=== PATIENT | female | born 1940 | race Caucasian/White ===

== ENCOUNTER → 2016-08-02 | Outpatient (CLI) | payer OTHER, MEDICARE ==
[~2016-08-02] MED LIST: CHOL1000 PO; CLX20 PO; LISI20TA PO; PRED1SUS3 OPL
[2016-08-02 12:15] LABS: FERRITIN 122.3 ng/ml (8.0-388.0)
[2016-08-05 22:19] LABS: ALBUMIN 4.1 G/DL (3.8-4.8); GAMMA GLOBULIN 1.1 G/DL (0.8-1.7)
--- NOTE | 2016-08-08 10:08 | CODING QUERY MEDICAL NECESSITY ---
SUPPORTING DIAGNOSIS NEEDED A supporting diagnosis is required for the test/procedure performed on this patient in order for us to be reimbursed by the patient's insurance. Please provide a supporting diagnosis for the following test/procedure listed below next to the test name along with your signature. *If there is no additional diagnosis for this patient that would support the following test/procedure please document that below next to the test/procedure. Test(s)/Procedure(s) that require a supporting diagnosis: DOS 08/02 * Vitamin B12 DIAGNOSIS: * Iron DIAGNOSIS: Provider Signature: Date: Thank you Sophie Cheek Health Information Management Once completed, please kindly fax back to [phone] For questions please call [phone]
== END | disposition home or self-care (01) ==
LOC: C.LABBFT 09:51
PROVIDERS: ATTEND Psychiatry & Neurology Neurology
DX: M54.5 Low back pain (principal); G62.9 Polyneuropathy, unspecified; G25.81 Restless legs syndrome; R20.0 Anesthesia of skin

== ENCOUNTER → 2016-09-04 | Outpatient (CLI) | payer OTHER, MEDICARE ==
[2016-09-04 13:09] LABS: BLOOD UREA NITROGEN 17 mg/dl (7-18); CREATININE 0.81 mg/dl (0.60-1.20)
== END | disposition home or self-care (01) ==
LOC: C.LABBFT 11:07
PROVIDERS: ATTEND Psychiatry & Neurology Neurology
DX: F05 Delirium due to known physiological condition (principal); R41.3 Other amnesia; E11.9 Type 2 diabetes mellitus without complications

== ENCOUNTER → 2016-09-06 | Outpatient (CLI) | payer OTHER, MEDICARE ==
[~2016-09-06] MED LIST changes: +GADAVIST IV PRN
--- NOTE | 2016-09-06 19:56 | DIAGNOSTIC IMAGING REPORT ---
MRI OF THE LUMBAR SPINE WITH AND WITHOUT CONTRAST CLINICAL HISTORY: Lumbar radiculopathy. COMPARISON STUDY: No previous studies for comparison. TECHNIQUE: Utilizing a 1.5 Mary magnet and dedicated coil, multiplanar, multiecho imaging of the lumbar spine was performed before and after uneventful IV administration of 7 mL of Gadavist. FINDINGS: For purposes of numbering on this exam, the L5-S1 disc space is assigned to axial image 23 of 25. There is slight anterolisthesis L3 on L4. There is no suspicious marrow replacement. There is no intracanalicular mass or fluid collection. Multiple T2 hyperintense bilateral renal lesions are noted. These are suboptimally assessed on this exam but visualized lesions favor cysts. L1-2: Central canal and neural foramen are patent. L2-3: There is disc bulge, ligamentous hypertrophy and facet arthrosis that result in severe narrowing of the central canal and lateral recesses with mild narrowing of both neural foramen. L3-4: There is disc bulge with central disc protrusion, ligamentous hypertrophy and facet arthrosis which result in marked narrowing of the central canal and lateral recesses with mild narrowing of both neural foramen. L4-5: There is disc bulge with ligamentous hypertrophy and facet arthrosis that result in moderate to severe narrowing of the central canal and lateral recesses and mild narrowing of both neural foramen. L5-S1: The central canal is patent. There is mild narrowing of the left neural foramen. IMPRESSION: 1. 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 Multilevel neural foraminal stenosis, as described above. 2. No lumbar spine fracture. Electronically signed by: Chito Do M.D. 09/06/2016 7:54 PM Dictated Date/Time: 09/06/2016 7:45 PM
--- NOTE | 2016-09-06 20:25 | DIAGNOSTIC IMAGING REPORT ---
MRI OF THE BRAIN WITHOUT AND WITH IV CONTRAST SEIZURE PROTOCOL CLINICAL HISTORY: Acute confusional state. COMPARISON STUDY: No previous studies for comparison. TECHNIQUE: Utilizing a 1.5 Mary magnet and dedicated coil, multiplanar, multiecho imaging of the brain was performed pre and postcontrast administration. IV administration of 7 mL of Gadavist contrast was uneventful. Thin cut coronal T2 imaging was performed according to seizure protocol. FINDINGS: There are no areas of restricted diffusion. No acute intracranial hemorrhage, midline shift or mass effect is present. Ventricular system is normal. Basilar cisterns are patent. There are no extra axial collections. Flow-voids for the major intracranial vessels are present. There are no intracranial masses or areas of pathologic enhancement. There is mucosal thickening with secretions within the bilateral maxillary sinuses as well as the left sphenoid and ethmoid sinuses. There is suspected resection of the right parotid gland. Scattered white matter T2 hyperintense foci suggest small vessel disease. IMPRESSION: 1. No acute intracranial findings. 2. No intracranial masses or pathologic enhancement. 3. Moderate small vessel disease. 4. Mild paranasal sinus disease. Electronically signed by: Chito Do M.D. 09/06/2016 8:23 PM Dictated Date/Time: 09/06/2016 7:26 PM
== END | disposition home or self-care (01) ==
LOC: C.MRI 16:19
PROVIDERS: ATTEND Psychiatry & Neurology Neurology
DX: M54.16 Radiculopathy, lumbar region (principal); F05 Delirium due to known physiological condition; M48.06 Spinal stenosis, lumbar region

== ENCOUNTER → 2016-09-16 | Outpatient (CLI) | payer OTHER, MEDICARE ==
[~2016-09-16] MED LIST changes: -GADAVIST IV PRN
--- NOTE | 2016-09-18 10:36 | EEG Procedure Note ---
EEG Procedure Note Date of Service September 16, 2016. Start / End Times Start Time: 1:31pm End Time: 2:31pm Referring Physician Claudine Max History 76 year old female with change in short term memory. EEG to evaluate for possible seizure etiology. Home meds: Gabapentin. Home Medication List Scheduled Cholecalciferol (Vitamin D3), 1 TAB PO QAM Citalopram (Celexa *), 20 MG PO QAM Lisinopril/Hctz (Prinzide 20-12.5MG), 1 TAB PO QPM Prednisolone Acetate 1% Oph (Pred Forte 1% Oph), 1 DROP OPL DIRECTED Description This is a 21 electrode EEG with a single channel dedicated to limited EKG. The electrodes were placed in accordance with the International 10-20 system. Frequent diffuse electrode artifact noted. EEG of fair technical quality. At the start of the recording the patient was in an awake state. The background was well organized and composed of symmetric mixed alpha and beta frequencies. There was a well formed symmetric moderate amplitude posterior dominant rhythm of 9-10Hz that was reactive to eye opening and closure. Hyperventilation was not done. Photic stimulation at various frequencies produced no abnormalities. Sleep was indicated by vertex waves and symmetric sleep spindles. Interpretation This is a normal awake and asleep 1hr extended EEG There was no electrographic seizures or epileptiform discharges. Clinical Correlation A normal EEG does not rule out epilepsy if there is a strong clinical suspicion.
== END | disposition home or self-care (01) ==
LOC: C.NEUR 13:07
PROVIDERS: ATTEND Psychiatry & Neurology Neurology
DX: R41.3 Other amnesia (principal)

== ENCOUNTER → 2016-10-16 | Outpatient (CLI) | payer OTHER, MEDICARE ==
--- NOTE | 2016-10-16 17:14 | MAMMOGRAPHY REPORT ---
BILATERAL DIGITAL SCREENING MAMMOGRAM WITH CAD: 10/16/2016 CLINICAL HISTORY: Routine screening. Patient has no complaints. TECHNIQUE: Bilateral CC and MLO views were obtained. Current study was also evaluated with a Compute r Aided Detection (CAD) system. COMPARISON: Comparison is made to exams dated: 10/16/2015 mammogram, 10/12/2014 mammogram, 10/01/2013 gloria mogram, 10/06/2012 ultrasound, 10/06/2012 mammogram, and 09/30/2012 mammogram - [facility] nter. BREAST COMPOSITION: There are scattered areas of fibroglandular density in both breasts. FINDINGS: There is a stable anton-shaped metallic biopsy marker in the upper outer posterior left stephie st and associated asymmetry which has been present after the biopsy. However, there is a possible ne w cluster of microcalcifications in the upper outer middle one third of the left breast, for which ad ditional spot magnification views are recommended. There are other scattered benign-appearing round and coarse calcifications and mild vascular calcific ations in the breasts. No other suspicious mass, architectural distortion or cluster of suspicious m icrocalcifications is seen. IMPRESSION: ACR BI-RADS CATEGORY 0: INCOMPLETE EVALUATION: NEED ADDITIONAL IMAGING EVALUATION The possible new cluster of microcalcifications in the upper outer left breast needs additional evalu ation. The patient will be called to schedule an appointment. Approximately 10% of breast cancers are not detected with mammography. A negative mammographic report should not delay biopsy if a clinically suggestive mass is present. Sammie Lockwood M.D. ay/:10/16/2016 14:24:34 Painter Assistant: Carlee HENRIQUEZ(R)(M), [facility] letter sent: Addl Imaging 0 BI-RADS Code: ACR BI-RADS Category 0: Incomplete Evaluation: Need Additional Imaging Evaluation
== END | disposition home or self-care (01) ==
LOC: C.MAMM 13:25
PROVIDERS: ATTEND Family Medicine
DX: Z12.31 Encounter for screening mammogram for malignant neoplasm of breast (principal); R92.8 Other abnormal and inconclusive findings on diagnostic imaging of breast

== ENCOUNTER → 2016-10-23 | Outpatient (CLI) | payer OTHER, MEDICARE ==
--- NOTE | 2016-10-23 16:40 | MAMMOGRAPHY REPORT ---
UNILATERAL LEFT DIGITAL DIAGNOSTIC MAMMOGRAM: 10/23/2016 CLINICAL HISTORY: 76-year-old woman with a prior history of left breast stereotactic biopsy and duct exploration. She was called back from recent screening mammography for a new cluster of microcalcifi cations in the upper outer quadrant of the left breast. TECHNIQUE: Spot magnification left CC and ML views were obtained. COMPARISON: Comparison is made to exams dated: 10/16/2016 mammogram, 10/16/2015 mammogram, 10/12/2014 mamm ogram, 10/01/2013 mammogram, 10/06/2012 mammogram, and 09/30/2012 mammogram - [facility] er. BREAST COMPOSITION: There are scattered areas of fibroglandular density in the left breast. FINDINGS: There is a 9.9 mm cluster of amorphous microcalcifications in a linear distribution in the upper outer middle one third of the left breast. This cluster is indeterminate given the morphology and distribution. When comparing to the spot magnification views performed prior to stereotactic bio psy in the left upper outer quadrant in 2010, the biopsied calcifications at that time or more coarse and heterogeneous in morphology which differs from the current cluster. Although this cluster could possibly represent a fibroadenoma, DCIS cannot be excluded. Definitive characterization with stereo tactic biopsy is recommended. No obvious associated asymmetry, mass or architectural distortion. IMPRESSION: ACR BI-RADS CATEGORY 4B: INTERMEDIATE SUSPICION FOR MALIGNANCY 1. Left breast stereotactic guided biopsy is recommended for a 9.9 mm cluster of amorphous microcalc ifications in a linear distribution in the left upper outer quadrant. These results and recommendations were discussed with the patient at the time of the exam. She tentat ively scheduled the biopsy prior to leaving our department. Approximately 10% of breast cancers are not detected with mammography. A negative mammographic report should not delay biopsy if a clinically suggestive mass is present. Sammie Lockwood M.D. ay/:10/23/2016 14:06:31 Senior Biostatistician: Theodora SANCHEZ)(Reny), [facility] letter sent: Abnormal 4/5 BI-RADS Code: ACR BI-RADS Category 4B: Intermediate Suspicion For Malignancy
== END | disposition home or self-care (01) ==
LOC: C.MAMM 13:35
PROVIDERS: ATTEND Family Medicine
DX: R92.0 Mammographic microcalcification found on diagnostic imaging of breast (principal)

== ENCOUNTER → 2016-11-06 | Outpatient (CLI) | payer OTHER, MEDICARE ==
--- NOTE | 2016-11-06 13:15 | Discharge Instructions ---
Discharge Instructions Procedure Procedure Date: Nov 06, 2016. Reason for visit: Left Calcs. Discharge Discharge Date: Nov 06, 2016. Discharge Diagnosis: status post breast biopsy Instructions Activity Recommendations: Additional Limitations (see below) Return to School/Work: no limitations Recommended Home Diet: No Limitations Provider Instructions: ACTIVITY RECOMMENDATIONS: * No lifting, pushing, pulling or exercising the affected side for three days. RETURN TO SCHOOL/WORK: * You may return to work/school after the procedure, but do not perform any strenuous activities for 24 to 48 hours. MEDICATIONS: * Tylenol (two 325 mg) every four to six hours if needed for mild pain (if not allergic to Tylenol). DIET: * Resume previous diet. SPECIAL CARE INSTRUCTIONS: * Keep biopsy site dry for 24 hours. May shower after 24 hours, but do not soak (bathe) incision. * May remove Tegaderm (plastic patch) tomorrow AFTER showering. * Leave the steri-strips on for one week. Allow the steri-strips to fall off by themselves. If not off after one week, you may remove them. You may place a Bandaid crosswise over the strips, if desired. * Apply ice 10 minutes on and 10 minutes off as needed. * Wear a bra at bedtime to sleep more comfortably for 2-3 days. * Your referring physician should have the results after approximately 5 to 7 business days. * Call for unusual bleeding, fever, drainage, etc or if you have any questions call during normal business hours or after hours call Dr Grimm, [phone]. FOLLOW UP VISIT: Follow-up with Referring Physician as scheduled. Allergies Coded Allergies: Diphenhydramine (Unverified Allergy, Severe, jerking leg movements, ) Codeine (Unverified Allergy, Intermediate, hives, 05/29/15) Shellfish (Verified Allergy, Intermediate, ITCHING, 05/29/15) Iodinated Contrast Media (Verified Allergy, Unknown, INTOLERANT OF IV DYE , 05/29/15) Latex1 -Allergic Contact Dermititis (Verified Adverse Reaction, Unknown, LATEX INTOLERANCE, 05/29/15) Uncoded Allergies: ADHESIVE TAPE (Allergy, Intermediate, MAKES SKIN RED, 04/21/12) BERRIES (Allergy, Intermediate, ITCHING, 07/01/14) [place] Recommendations: Call your doctor if: * Temperature above 101 degrees * Pain not relieved by pain medicine ordered * There is increased drainage or redness from any incision * You have any unanswered questions or concerns. Your Doctors Instructions noted above were prepared by provider Marcelina Grimm. Patient Signature Section: Patient Instructions Signature Page Carmen Manning Patient (or Guardian) Signature/Date: I have read and understand the instructions given to me by my caregivers. Caregiver/RN/Doctor Signature/Date: The above-named patient and/or guardian has received patient instructions on this date. + Original Patient Signature Page (only) stays with chart. Please make copy for patient.
--- NOTE | 2016-11-06 16:09 | MAMMOGRAPHY REPORT ---
STEREOTACTIC GUIDED BIOPSY LEFT BREAST: 11/06/2016 CLINICAL HISTORY: Indeterminate calcifications in the left upper outer quadrant. PATIENT CONSENT: The procedure, risks, benefits, and alternatives of stereotactic biopsy with clip pl acement were discussed with the patient, and verbal and written consent was obtained. A timeout was performed immediately prior to the procedure. PROCEDURE DESCRIPTION: With stereotactic guidance, aseptic technique, and lidocaine as a local anesth etic (1% lidocaine to anesthetize the skin and 1% lidocaine with epinephrine to anesthetize the deepe r tissues), the calcifications of concern in the left upper outer quadrant were sampled multiple time s with a 9-gauge vacuum-assisted biopsy needle ([employer]). The path of approach was lateral. The specimen radiograph demonstrates calcifications to be present in the samples. A metallic marker cli p (dumbbell-shaped) was placed at the biopsy site. This was confirmed on postprocedure mammograms. Direct pressure was applied at the biopsy site and hemostasis was readily achieved. The patient tole rated the procedure without complication. She was given wound care instructions. COMPARISON: Comparison is made to exams dated: 10/23/2016 mammogram, 10/16/2016 mammogram, 10/16/2015 gloria mogram, 10/12/2014 mammogram, 10/01/2013 mammogram, and 10/06/2012 mammogram - [facility]. IMPRESSION: STEREOTACTIC GUIDED BIOPSY Stereotactic biopsy of indeterminate calcifications in the left upper outer quadrant, with clip place ment. The patient will receive pathology results from her referring provider. Marcelina Grimm M.D. ah/:11/06/2016 13:17:36 Tile Fitter: Carlee Hurtado, [facility]
--- NOTE | 2016-11-06 16:09 | MAMMOGRAPHY REPORT ---
UNILATERAL LEFT DIGITAL DIAGNOSTIC MAMMOGRAM: 11/06/2016 CLINICAL HISTORY: Status post stereotactic biopsy of left upper outer quadrant calcifications. TECHNIQUE: Left CC and LM views were obtained. COMPARISON: Comparison is made to exams dated: 10/23/2016 mammogram, 10/16/2016 mammogram, 10/16/2015 gloria mogram, 10/12/2014 mammogram, 10/01/2013 mammogram, and 10/06/2012 ultrasound - [facility] ter. BREAST COMPOSITION: There are scattered areas of fibroglandular density in the left breast. FINDINGS: Preprocedural left LM view was obtained for biopsy planning purposes. Postprocedural left CC and LM views were obtained, which shows a new dumbbell-shaped biopsy marker clip within the left u pper outer quadrant status post stereotactic biopsy of left upper outer quadrant calcifications. The re is mild lateral migration of the biopsy marker clip of approximately 2 cm, likely due to accordion effect. No significant postbiopsy hematoma is seen. IMPRESSION: POST PROCEDURE IMAGING FOR MARKER PLACEMENT New biopsy marker clip status post left breast stereotactic biopsy. Pathology results are pending. Approximately 10% of breast cancers are not detected with mammography. A negative mammographic report should not delay biopsy if a clinically suggestive mass is present. Marcelina Grimm M.D. /:11/06/2016 13:35:01 Field Hockey [employer] Lacrosse Coach: Carlee Hurtado [facility] BI-RADS Code: Post Procedure Imaging For Marker Placement
== END | disposition home or self-care (01) ==
LOC: C.MAMM 12:25
PROVIDERS: ATTEND Family Medicine
DX: R92.0 Mammographic microcalcification found on diagnostic imaging of breast (principal); D24.2 Benign neoplasm of left breast

== ENCOUNTER → 2017-03-07 | Outpatient (CLI) | payer OTHER, MEDICARE ==
[2017-03-07 12:37] LABS: URINE APPEARANCE CLEAR (CLEAR); URINE BILIRUBIN NEG (NEG); URINE COLOR YELLOW; URINE EPITHELIAL CELL AUTO 0-5 /lpf (0-5); URINE NITRITE NEG (NEG); URINE SPECIFIC GRAVITY 1.011 (1.000-1.030); UROBILINOGEN NEG (NEG); ZZUR CULT IF INDIC CLEAN CATCH NO
[2017-03-07 12:43] LABS: MANUAL MICROSCOPIC REQUIRED? NO; REVIEW REQ? NO
== END | disposition home or self-care (01) ==
LOC: C.LABBFT 10:06
PROVIDERS: ATTEND Family Medicine
DX: M54.9 Dorsalgia, unspecified (principal)

== ENCOUNTER → 2017-07-07 | Outpatient (CLI) | payer OTHER, MEDICARE | END | disposition home or self-care (01) | LOC: C.PAPS 08:33 | PROVIDERS: ATTEND Internal Medicine | DX: Z01.419 Encounter for gynecological examination (general) (routine) without abnormal findings (principal) ==

== ENCOUNTER → 2017-07-11 | Outpatient (CLI) | payer OTHER, MEDICARE ==
[2017-07-11 12:43] LABS: BASO % 0.6 %; BASO ABS # 0.03 K/uL (0-0.2); EOS % 3.6 %; EOS ABS # 0.19 K/uL (0-0.5); IG# 0.01 K/uL (0.00-0.02); LYMPH % 39.5 %; MEAN CELL VOLUME 92.3 fL (80-100); MEAN CORPUSCULAR HEMOGLOBIN 30.8 pg (25-34); MEAN CORPUSCULAR HGB CONC 33.3 g/dl (32-36); MEAN PLATELET VOLUME 10.6 fL (7.4-10.4); MONO % 11.1 %; MONO ABS # 0.59 K/uL (0.11-0.59); NEUT ABS # 2.39 K/uL (1.4-6.5); PLATELET COUNT 207 K/uL (130-400); RED CELL DISTRIBUTION WIDTH CV 13.5 % (11.5-14.5); RED CELL DISTRIBUTION WIDTH SD 45.5 fL (36.4-46.3); WHITE BLOOD COUNT 5.31 K/uL (4.8-10.8)
[2017-07-11 13:01] LABS: ALT/SGPT 28 U/L (12-78); BLOOD UREA NITROGEN 18 mg/dl (7-18); CALCIUM 9.5 mg/dl (8.5-10.1); CARBON DIOXIDE 32 mmol/L (21-32); CHOLESTEROL 259 mg/dl (0-200); GLUCOSE 116 mg/dl (70-99); SODIUM 139 mmol/L (136-145)
[2017-07-11 13:10] LABS: ALKALINE PHOSPHATASE 72 U/L (45-117); AST/SGOT 20 U/L (15-37); LDL CHOLESTEROL (DIRECT) 171 mg/dl; TOTAL PROTEIN 7.6 gm/dl (6.4-8.2)
== END | disposition home or self-care (01) ==
LOC: C.LABSPEC 12:06
PROVIDERS: ATTEND Internal Medicine
DX: I10 Essential (primary) hypertension (principal); E78.5 Hyperlipidemia, unspecified; R53.83 Other fatigue; C81.90 Hodgkin lymphoma, unspecified, unspecified site

== ENCOUNTER → 2017-07-22 | Outpatient (CLI) | payer OTHER, MEDICARE ==
[2017-08-07 12:45] LABS: FECAL OCCULT BLOOD #1 NEGATIVE (NEGATIVE); FECAL OCCULT BLOOD #2 NEGATIVE (NEGATIVE); FECAL OCCULT BLOOD #3 NEGATIVE (NEGATIVE)
== END | disposition home or self-care (01) ==
LOC: C.LABSPEC 12:33
PROVIDERS: ATTEND Internal Medicine
DX: Z12.11 Encounter for screening for malignant neoplasm of colon (principal)

== ENCOUNTER → 2017-08-07 | Outpatient (CLI) | payer OTHER, MEDICARE ==
[~2017-08-07] MED LIST changes: +OPTIRAY 320 IV PRN
--- NOTE | 2017-08-07 14:33 | DIAGNOSTIC IMAGING REPORT ---
CT SCAN OF THE ABDOMEN AND PELVIS WITH IV CONTRAST CLINICAL HISTORY: Right lower quadrant abdominal pain. Reported history of lymphoma. COMPARISON STUDY: Abdominal CT dated 02/10/2013. TECHNIQUE: Following the IV administration of 93 cc of Optiray 320, CT scan of the abdomen and pelvis is performed from the lung bases to the proximal femora. Images are reviewed in the axial, sagittal, and coronal planes. The patient was premedicated for a reported history of contrast allergy. IV contrast was administered without complication. A dose lowering technique was utilized adhering to the principles of ALARA. CT DOSE: 805.57 mGycm FINDINGS: Lung bases: The heart is normal in size noting trace pericardial fluid. The coronary arteries are densely calcified. An 8 mm pleural-based nodular density at the right lung base is seen on image #63. This is unchanged from 2013 and of doubtful significance. A calcified granuloma is seen in the lingula. No airspace consolidation or pleural effusion is identified. Dependent atelectasis is noted. A surgical clip is noted in the left breast. There is a tiny hiatal hernia. Liver: The contrast-enhanced liver is normal in size, contour, and attenuation. There is no intrahepatic biliary ductal dilatation. The hepatic veins and portal veins are patent. Gallbladder: Unremarkable. Spleen: Normal in size and attenuation, measuring 10.6 cm in length. Pancreas: Unremarkable. Adrenal glands: Unremarkable. Kidneys: The contrast enhanced kidneys demonstrate mild cortical atrophy. There is fullness of the renal collecting system bilaterally. The kidneys enhance symmetrically. Bilateral renal cysts measure up to 2.7 cm. Additional subcentimeter cortical hypodensities also likely represent cysts but are too small for definitive characterization. Abdominal vasculature: The abdominal aorta is normal in course and caliber noting moderate atherosclerotic calcification. Bowel: There is mild to moderate colonic fecal retention. No bowel obstruction is seen. The appendix is well-visualized and normal. Peritoneum: There is no intraperitoneal free air or abdominal ascites. Lymphadenopathy: None. Pelvic viscera: The bladder, uterus, and adnexa are normal as visualized. Skeletal structures: The skeletal structures are osteopenic. Mild lumbosacral spondylosis is observed. No lytic or blastic lesions are seen. IMPRESSION: 1. No acute infectious or inflammatory findings are identified in the abdomen or pelvis. 2. There is no abdominopelvic lymphadenopathy. The spleen is normal in size. 3. There is fullness of the renal collecting system bilaterally. The ureters are normal in caliber and this is of indeterminant significance. Consider correlation with urinalysis. 4. Mild to moderate colonic fecal retention. No bowel obstruction is identified. 5. Additional findings as above. Electronically signed by: Wesley Saravia M.D. 08/07/2017 2:31 PM Dictated Date/Time: 08/07/2017 2:22 PM
== END | disposition home or self-care (01) ==
LOC: C.CTS 13:57
PROVIDERS: ATTEND Internal Medicine
DX: R10.31 Right lower quadrant pain (principal); M85.88 Other specified disorders of bone density and structure, other site

== ENCOUNTER 2017-09-12 14:02 | Emergency (ER) | payer OTHER, MEDICARE ==
[~2017-09-12] VITALS: Ht 167.6 cm; Wt 79.4 kg
[~2017-09-12 14:02] MED LIST changes: -OPTIRAY 320 IV PRN
[2017-09-12 14:05] VITALS: BP 157/68; PULSE 88; TEMP 36.8; O2SAT 97; Ht 167.6 cm; Wt 79.4 kg
[2017-09-12] MEDS ORDERED: CITA-295 PO (14:45)
[2017-09-12] MEDS ORDERED: PRAV20TA PO (14:45)
[2017-09-12] MEDS ORDERED: LISI-787 PO (14:45)
[2017-09-12] MEDS ORDERED: PRLSR20 PO (14:45)
--- NOTE | 2017-09-12 14:47 | DIAGNOSTIC IMAGING REPORT ---
RIGHT KNEE 3 VIEWS CLINICAL HISTORY: Fall with right knee pain. FINDINGS: AP, crosstable lateral, and sunrise views of the right knee are obtained. No prior studies are available for comparison at the time of dictation. The skeletal structures are osteopenic. No fracture is seen. There is mild tricompartmental degenerative joint space narrowing, greatest at the patellofemoral articulation. There is a superior patellar enthesophyte and mild degenerative beaking of the tibial spine. There is a small joint effusion. Mild soft tissue swelling is noted. Superficial venous varicosities are present in the right lower extremity. IMPRESSION: 1. Soft tissue swelling and small joint effusion. There is no radiographic evidence of right knee fracture. 2. Osteopenia and mild degenerative change as above. Electronically signed by: Wesley Saravia M.D. 09/12/2017 2:45 PM Dictated Date/Time: 09/12/2017 2:44 PM
--- NOTE | 2017-09-12 14:58 | DIAGNOSTIC IMAGING REPORT ---
R FOOT MIN 3 VIEWS ROUTINE CLINICAL HISTORY: R foot/knee pain s/p fall trauma COMPARISON: None. DISCUSSION: Small cortical fracture base proximal phalanx fifth toe. Localized soft tissue edema. Remaining osseous structures show no acute bony abnormality. There is no evidence for soft tissue swelling. IMPRESSION: Cortical fracture base proximal phalanx fifth toe. The above report was generated using voice recognition software. It may contain grammatical, syntax or spelling errors. Electronically signed by: Epi Graham M.D. 09/12/2017 2:56 PM Dictated Date/Time: 09/12/2017 2:42 PM
--- NOTE | 2017-09-12 15:37 | EMERGENCY ROOM VISIT NOTE ---
History First contact with patient: 14:10 Chief Complaint: LEG PAIN,LEG INJURY Stated Complaint: FELL, RIGHT KNEE AND FOOT PAIN History of Present Illness The patient is a 77 year old female who presents to the Emergency Room with complaints of injuries to her right lower extremity after she fell walking up her driveway yesterday. The patient reports that she has a history of pinched disc in her back, and bilateral lower extremity paresthesias/numbness. She reports that these symptoms come on very quickly. She has had an extensive workup by her PCP, back surgeon, media sales consultant and neurologist. The patient reports that she was walking up her driveway when she stopped and her feet went numb. She then reports losing her balance and falling onto her right side. The patient reports that she went to her chiropractor who suggested that she come to the emergency department for an x-ray of her right knee and right foot. The patient denies any significant knee discomfort. She denies any back pain , head injury, neck pain or other extremity injuries from her fall, and currently rates her discomfort a 6 out of 10 on my exam. Review of Systems 10 system review was performed and was negative except for pertinent positives and negatives as indicated in history of present illness Past Medical/Surgical History Medical Problems: (1) Benign hypertension (2) Diabetes mellitus (3) Tonsillectomy Family History FH: cancer FH: diabetes mellitus FH: gallbladder disease FH: heart disease FH: hypertension Social History Smoking Status: Never Smoker Alcohol Use: none Marital Status: Housing Status: lives with significant other Occupation Status: retired Current/Historical Medications Scheduled Citalopram Hydrobromide (Citalopram), 20 MG PO DAILY Lisinopril/Hctz (Zestoretic 20MG/12.5MG), 1 TAB PO DAILY Pravastatin (Pravachol ), 40 MG PO DAILY Scheduled PRN Omeprazole (Prilosec), 40 MG PO DAILY PRN for PRN Physical Exam Vital Signs Date Time Temp Pulse Resp B/P (MAP) Pulse Ox O2 Delivery O2 Flow Rate FiO2 09/12/17 14:05 36.8 88 18 157/68 97 Room Air Physical Exam CONSTITUTIONAL: Healthy and well nourished. Alert and oriented X 3 with positive affect. Patient does not appear in any acute distress. HEENT: Normocephalic, atraumatic. Pupils equal, round and reactive. NECK: Full active range of motion without discomfort. RESPIRATORY: Clear to auscultation bilaterally with no wheezing, crackles, rhonchi or stridor. CARDIOVASCULAR: Regular rate and rhythm with no murmurs, rubs or gallops. GASTROINTESTINAL: Bowel sounds present in all quadrants. Soft and nontender to palpation. MUSCULOSKELETAL: Examination of the right knee does not show any ecchymosis, abrasions or significant joint effusion. She exhibits full range of motion of the knee without discomfort. Ligamentous exam is normal. Examination of the right foot shows lateral ecchymosis and edema. She has tenderness laterally as well as at the base of the fifth toe. Negative anterior drawer. No tenderness to palpation of the calcaneus or Achilles tendon. Pedal pulses are intact. Remaining muscular skeletal exam was normal with no tenderness to palpation through the thoracolumbar spine or ribs. INTEGUMENTARY: No rash or other significant dermatologic conditions noted. NEUROLOGIC: No focal neurologic deficits noted. Medical Decision & Procedures ER Provider Diagnostic Interpretation: My interpretation of the right knee and foot x-rays shows a mildly displaced fracture at the medial base of the proximal phalanx of the fifth toe. Right knee x-rays are normal with may be a small joint effusion. Radiologist reports are as follows: R FOOT MIN 3 VIEWS ROUTINE CLINICAL HISTORY: R foot/knee pain s/p fall trauma COMPARISON: None. DISCUSSION: Small cortical fracture base proximal phalanx fifth toe. Localized soft tissue edema. Remaining osseous structures show no acute bony abnormality. There is no evidence for soft tissue swelling. IMPRESSION: Cortical fracture base proximal phalanx fifth toe. RIGHT KNEE 3 VIEWS CLINICAL HISTORY: Fall with right knee pain. FINDINGS: AP, crosstable lateral, and sunrise views of the right knee are obtained. No prior studies are available for comparison at the time of dictation. The skeletal structures are osteopenic. No fracture is seen. There is mild tricompartmental degenerative joint space narrowing, greatest at the patellofemoral articulation. There is a superior patellar enthesophyte and mild degenerative beaking of the tibial spine. There is a small joint effusion. Mild soft tissue swelling is noted. Superficial venous varicosities are present in the right lower extremity. IMPRESSION: 1. Soft tissue swelling and small joint effusion. There is no radiographic evidence of right knee fracture. 2. Osteopenia and mild degenerative change as above. ED Course Patient history and physical exam were performed. Nurse's notes were reviewed. Vital signs were reviewed and were normal. The patient refused any analgesics on initial exam. X-rays of the right knee and right foot shows a fracture at the base of the fifth phalanx. The patient's toes were pedro luis taped. I asked the patient if she had something at home to help her with ambulation. She reports that her sister has a walker. I did encourage the patient to use a walker over the next several days to avoid risk of falling. She was encouraged to intermittently apply ice to areas of discomfort. Ibuprofen or Tylenol if needed for additional pain relief. I did encourage her to follow-up with her PCP or [facility] for further reevaluation and management. The patient was happy with plan of care, voiced understanding of all discharge instructions, and rated her discomfort a 3 out of 10 at the conclusion of my exam. The patient was also seen and examined by Dr. Westfall, ED attending physician , who agrees with workup and plan of care. Medical Decision Medication Reconcilliation Current Medication List: was personally reviewed by me Blood Pressure Screening Patient's blood pressure: Normal blood pressure Impression Primary Impression: Fracture of fifth toe, right, closed Additional Impressions: Fall from ground level Contusion of right foot Contusion of right knee Departure Information Dispostion Home / Self-Care Referrals Cleveland Lee D.O. Forms HOME CARE DOCUMENTATION FORM, IMPORTANT VISIT INFORMATION Patient Instructions My [facility] Additional Instructions Intermittently apply ice to areas of discomfort. Pedro Luis tape toes together, and wear a hard soled shoe for comfort. Suggest using a walker to minimize your risk of falling until your injuries improve. Ibuprofen or Tylenol as needed for pain. Suggest follow-up with your PCP or [facility] (Dr. Lee) as needed for further management. Problem Qualifiers Primary Impression: Fracture of fifth toe, right, closed Encounter type: initial encounter Qualified Codes: S92.501A - Displaced unspecified fracture of right lesser toe(s), initial encounter for closed fracture Additional Impressions: Contusion of right foot Encounter type: initial encounter Qualified Codes: S90.31XA - Contusion of right foot, initial encounter Contusion of right knee Encounter type: initial encounter Qualified Codes: S80.01XA - Contusion of right knee, initial encounter
== END 2017-09-12 15:55 | disposition home or self-care (01) ==
LOC: C.EDB 14:04 → C.EDD 15:55
DX: S92.501A Displaced unspecified fracture of right lesser toe(s), initial encounter for closed fracture (principal); S80.01XA Contusion of right knee, initial encounter; W19.XXXA Unspecified fall, initial encounter; Y93.01 Activity, walking, marching and hiking; Y92.093 Driveway of other non-institutional residence as the place of occurrence of the external cause; I10 Essential (primary) hypertension; E11.9 Type 2 diabetes mellitus without complications

== ENCOUNTER 2019-11-29 09:55 | Observation (INO) ==
--- NOTE | 2019-11-18 15:13 | PAT Medication Instructions ---
Medication Instructions Date of Service November 18, 2019 Home Medications citalopram 20 mg tablet 20 mg PO DAILY lisinopril 20 mg-hydrochlorothiazide 12.5 mg tablet 1 tab PO DAILY metformin 500 mg tablet 500 mg PO BID multivitamin 1 tab PO DAILY DO NOT take the morning of surgery lisinopril 20 mg-hydrochlorothiazide 12.5 mg tablet 1 tab PO DAILY metformin 500 mg tablet 500 mg PO BID multivitamin 1 tab PO DAILY Take morning of surgery With a small sip of water, OTHERWISE NOTHING TO EAT OR DRINK AFTER MIDNIGHT: citalopram 20 mg tablet 20 mg PO DAILY Take evening before surgery metformin 500 mg tablet 500 mg PO BID Other Notes If you have any questions please call us at [phone] or [phone] or [phone] or [phone]
--- NOTE | 2019-11-22 09:48 | Anesthesiology Consultation ---
Date of Service November 22, 2019 Assessment & Plan (1) Encounter for pre-operative examination: Per PAT assessment on 11/21: Travel screen- Travel to [facility] (grocery shopping, + mask, + hand washing). No known COVID-19 positive contacts. No current COVID-19 related symptoms. Patient scheduled for preop protocol COVID-19 testing on 11/23 ([place]). Awaiting results. - Check [facility] AM DOS Chart Review Chart Review: Acceptable Risk for Surgery (pending COVID testing) and Patient seen in Pre Admission Testing Teaching & Discussion Pre-Anesthesia Teaching/Discussion Notes: Instructed NPO after midnight before surgery,except medications with 15 cc of water. Medication instructions provided according to the PAT guidelines. History Surgery Operation Date: 11/29/19 12:40 Proposed Procedures p Left Breast Lumpectomy with Localization (Annie Air Brake Man) and Left [place] Lymph Node Biopsy - Lenny Brewer MD, FACS Height/Weight Height: 5 ft 6 in Weight: 74.1 kg Allergies Allergy/AdvReac Type Severity Reaction Status Date / Time diphenhydramine Allergy Severe jerking Unverified 11/18/19 11:56 leg movements codeine Allergy Intermediate hives Unverified 11/18/19 11:56 shellfish derived Allergy Intermediate itchiness Verified 11/22/19 10:17 latex Allergy Mild hives, Verified 11/22/19 09:56 itchiness Iodinated Contrast Media Allergy Unknown "intolerant Verified 11/22/19 10:17 " ADHESIVE TAPE Allergy Intermediate skin Uncoded 11/22/19 09:56 redness, painful BERRIES Allergy Intermediate itchiness Uncoded 11/22/19 10:17 Medications Home Medications Medication Instructions Recorded Confirmed Last Taken citalopram 20 mg tablet 20 mg PO DAILY 11/16/19 11/18/19 Unknown lisinopril 20 1 tab PO DAILY 11/16/19 11/18/19 Unknown mg-hydrochlorothiazide 12.5 mg tablet metformin 500 mg tablet 500 mg PO BID 11/16/19 11/18/19 Unknown multivitamin 1 tab PO DAILY 11/16/19 11/18/19 Unknown Past Medical History Medical History CAD (coronary artery disease) mild, non-obstructive per 08/2018 cardiac cath Depression Hyperlipemia per records Left breast lump mild duct removal, mediport removal Left ventricular hypertrophy moderate, asymmetric LVH (focal thickening of basal septum with no evidence of LVOT obstruction) per 07/2018 stress echo, subsequent cardiac cath 08/2018 with mild, non-obstructive CAD, followed by Dr. Damien Robb Non-Hodgkin lymphoma hx chemo/xrt (several years ago) Type 2 diabetes mellitus NIDDM Exercise / Class Metabolic Activity III < 4 Walking/Shop/Light housework Past Family History Family History Mother Breast cancer Colorectal cancer Hypertension Stroke Daughter Breast cancer 2 daughters Father Diabetes Hypertension Past Surgical History Surgical History History of cataract surgery BOTH EYES Hx of colonoscopy 2017 OR 2018 Hx of parotidectomy RIGHT SIDE 2010 S/P tonsillectomy 1957 Tubal ligation status 1977 Past Anesthesia History No Family Hx of Anesthesia Complications and Other (eyes taped shut during parotidectomy (states she got corneal abrasion)) History of PONV No Hx of PONV and No Hx of Motion Sickness Social History Smoking Status: Never smoker Hx Alcohol Use: No Hx Substance Use: No substance use type: does not use Review of Systems Patient denies chest pain, shortness of breath, fever, chills, cough, wheezing, palpitations. Physical Exam Vital Signs VITALS BP 153/73 P 70 TEMP 98.1 SP02 95%RA RESP 18 PHYSICAL Mildly decreased cervical extension 2/2 cervicalgia Full TMJ range of motion. TMD 3 finger breaths Mallampati Score 3 Dentition: upper partial Lungs: clear throughout to auscultation Cardiac: regular rate and rhythm, no murmurs noted Spine: normal Carotid arteries: negative bruit Extremities: no edema Testing Laboratory Results 11/22/19 10:14 11/22/19 10:14 09/24/19 HGBA1C 6.3% Electrocardiogram Date: 11/22/19 Findings: + NSR @ (65) Stress Test Date: 07/21/18 Type: exercise EF 50-55%. Equivocal exercise echo without definite evidence of ischemia but very low workload achieved. 4.6 METS. Poor exercise tolerance. Mild LAD. moderate, asymmetric LVH (focal thickening of basal septum with no evidence of LVOT obstruction) Cardiac Catheterization Date: 08/10/18 1. Minimal nonobstructive coronary artery disease 2. Normal left and right-sided filling pressures. 3. Normal pulmonary artery pressures
[2019-11-22 10:31] LABS: Basophils # (auto) 0.03 K/uL (0-0.2); Basophils % (auto) 0.5 %; Eosinophils # (auto) 0.17 K/uL (0-0.5); Eosinophils % (auto) 2.9 %; Hematocrit (blood only) 42.4 % (37-47); Hemoglobin 13.5 g/dL (12.0-16.0); Immature Granulocytes # (auto) 0.01 K/uL (0.00-0.02); Immature Granulocytes % (auto) 0.2 %; Lymphocytes # (auto) 2.14 K/uL (1.2-3.4); Lymphocytes % (auto) 36.6 %; Mean Corpuscular Hemoglobin 30.1 pg (25-34); Mean Corpuscular Hgb Conc 31.8 g/dL (32-36); Mean Corpuscular Volume 94.4 fL (80-100); Mean Platelet Volume 10.6 fL (7.4-10.4); Monocytes # (auto) 0.46 K/uL (0.11-0.59); Monocytes % (auto) 7.9 %; Neutrophils # (auto) 3.03 K/uL (1.4-6.5); Neutrophils % (auto) 51.9 %; Platelet Count 204 K/uL (130-400); RDW Coefficient of Variation 13.5 % (11.5-14.5); RDW Standard Deviation 46.4 fL (36.4-46.3); Red Blood Count 4.49 M/uL (4.2-5.4); White Blood Count 5.84 K/uL (4.8-10.8)
[2019-11-22 12:21] LABS: BUN Creatinine Ratio 21.3 (10-20); Creatinine Clr Calc Pharmacy 58.9 ml/min; Est GFR (African American) 80.6; Est GFR (Non-African American) 69.6; Potassium 4.4 mmol/L (3.5-5.1)
--- NOTE | 2019-11-22 14:24 | Electrocardiogram Report ---
Test Reason : Blood Pressure : / mmHG Vent. Rate : 065 BPM Atrial Rate : 065 BPM P-R Int : 166 ms QRS Dur : 076 ms QT Int : 390 ms P-R-T Axes : 056 009 033 degrees QTc Int : 405 ms Normal sinus rhythm Normal ECG No previous ECGs available Confirmed by Sandro Dang ([id number]) on 11/22/2019 2:24:22 PM Referred By: Lenny Brewer Confirmed By:Scott Dang
[~2019-11-29 09:55] MED LIST changes: +CEFAZOLIN 2000MG 2,000 MG/15 ML SYR IV SCH; -CHOL1000 PO; -CLX20 PO; -LISI20TA PO; -PRED1SUS3 OPL
[2019-11-29] MEDS ORDERED: LIDOCAINE HCL 2% 2 ML VIAL/AMP(20MG/ML) INFIL ONE (10:31)
[2019-11-29] MEDS ORDERED: DEXAMETHASONE SOD INJ 4 MG/ML VIAL ONE (10:31)
[2019-11-29] MEDS ORDERED: PROPOFOL IV EMULSION 10 MG/ML 20 ML VIAL IV ONE ×3 (10:31→13:54)
[2019-11-29] MEDS ORDERED: ONDANSETRON INJ 2 MG/ML 2 ML VIAL ONE (10:31)
[2019-11-29] MEDS ORDERED: MIDAZOLAM HCL 1 MG/ML 2ML VIAL ONE (10:31)
[2019-11-29] MEDS ORDERED: fentaNYL citrate 100 MCG/2 ML VIAL ONE ×2 (10:31→13:15)
--- NOTE | 2019-11-29 11:00 | Nuclear Medicine Report ---
LYMPHOSCINTIGRAPHY CLINICAL HISTORY: Left breast cancer. PROCEDURE: Using standard sterile technique, 4 intradermal and one deep injection of 0.426 mCi of Lym phoseek was placed in the left periareolar breast. The patient tolerated the procedure well. There we re no immediate complications. The patient was subsequently transported to the surgical suite. No marv ging was obtained at the referring physician's request. IMPRESSION: Injection of 0.426 mCi of Lymphoseek in the left breast. ACT 112: Negative or not required by law. Electronically signed by: Bandar Gay M.D. 11/29/2019 10:59 AM
[2019-11-29] MEDS ORDERED: ePHEDrine sulfate 50 MG/ML AMP IV PRN (11:57)
[2019-11-29] MEDS ORDERED: fentaNYL citrate 100 MCG/2 ML VIAL IV PRN (11:57)
[2019-11-29] MEDS ORDERED: ATROPINE SULFATE 0.1 MG/ML 10ML SYR IV PRN (11:57)
[2019-11-29] MEDS ORDERED: HYDROmorphone INJ 2 MG/ML SYR/VIAL IV PRN (11:57)
[2019-11-29] MEDS ORDERED: ONDANSETRON INJ 2 MG/ML 2 ML VIAL IV PRN ×2 (11:57→15:48)
--- NOTE | 2019-11-29 12:05 | History & Physical Bridge Note ---
Date of Service November 29, 2019 History & Physical Bridge Note I have examined the patient, reviewed the History & Physical and in the interval since the performance of the History & Physical I have noted the following changes of clinical significance: no changes noted
[2019-11-29] MEDS ORDERED: METHYLENE BLUE 0.5% 10 ML VIAL ONE (12:21)
[2019-11-29] MEDS ORDERED: BUPIVACAINE 0.5 % 5 MG/1 ML MPF 30ML VIAL ONE (12:21)
--- NOTE | 2019-11-29 13:58 | Post Operative Brief Note ---
PG Immediate Post Op with CF Date of Surgery November 29, 2019 Pre & Post Diagnosis Operation Date: 11/29/19 11:30 Pre-Op Diagnosis: Left Breast Cancer Post-Op Diagnosis: Left Breast Cancer I identified the patient and participated in the time-out.: Yes Procedure Operation Date: 11/29/19 11:30 Actual Procedures p Left Breast Lumpectomy with Localization using Annie Addiction Medicine Physician and Left [place] Lymph Node Biopsy(Left) - Lenny Brewer MD, FACS Surgeon Lenny Brewer MD, FACS Technology Applications Consultant Mitch Escobedo Estimated Blood Loss 10 Findings Consistent with Post-Op Diagnosis Specimens Specimen Description: Frozen #1 Left sentinel lymph node Permanent A: Left breast tissue - skin inferior, long silk lateral, short silk medial, methylene blue superior/deep
[2019-11-29] MEDS ORDERED: ACETAMINOPHEN 1,000 MG/100 ML VIAL IV ONE (14:01)
--- NOTE | 2019-11-29 14:29 | Operative Report (OR) ---
DATE OF OPERATION: 11/29/2019 NAME OF OPERATION: Left lumpectomy with sentinel lymph node biopsy using the Annie Dancing Master. STAFF SURGEON: Lenny Brewer MD. FLITCH HANGER: Lyubov Escobedo PA-C. ANESTHESIA: General. DESCRIPTION OF PROCEDURE: The patient was brought in the operating room and placed on the operating table in supine position. Her left arm was extended on an arm board. Her left breast and axilla were prepped and draped in usual fashion. My casino assistant manager helped with prepping, draping, removal of the lymph node, breast tissue and closure of the wounds. Initially, the left axilla was approached. She had had injection for sentinel lymph node biopsy. Incision was made in the left axilla using 0.5% plain Marcaine. Dissection was carried down very deep identifying a small node, which did not have significant activity and then a second node, which was the sentinel lymph node sent for frozen section and found to be negative. The initial node was sent for permanent. At this point, lumpectomy was performed. The marker was in the very inferior superficial part of the breast. Elliptical incision was made. I used the Annie Dancing Master to localize the area. Elliptical skin incision was made. Dissection was carried down very deep to the chest wall. The left breast tissue was marked, skin inferior, long silk suture lateral, short medial, methylene blue superior/deep margin near the pectoralis major muscle. This tissue was then placed into the Faxitron and the marker was within the tissue as well as the clip. Additional inferior/deep tissue was taken. The deep portion was down to the muscle. It was marked with long silk suture lateral, short medial, methylene blue new margin and then additional superior/deep down to the muscle tissue was taken and marked in the same way. Deep tissue was reapproximated using 2-0 plain suture, the breast reapproximated using subcuticular 4-0 Monocryl with Dermabond. The left axilla was closed using 4-0 nylon suture. The patient was transferred to recovery room in stable condition. I attest to the content of the Intraoperative Record and any orders documented therein. Any exception s are noted below.
--- NOTE | 2019-11-29 14:47 | Mammography Report ---
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 She is status post wireless localization with Annie Plant Sciences Professor and sp ecimen radiograph is performed. COMPARISON: Comparison is made to exams dated: 11/10/2019 mammogram, 11/10/2019 stereotactic biopsy, 10/11 mammogram, 11/08/2019 ultrasound, 11/01/2019 mammogram, and 10/28/2018 mammogram - [facility]. FINDINGS: The specimen radiograph demonstrates the metallic biopsy marker, savvy hand wood sander reflector and asymmetry within the tissue specimen, compatible with successful preoperative localization and subseq uent surgical excision. IMPRESSION: SPECIMEN Status post successful preoperative localization and subsequent surgical excision of both the metalli c biopsy marker and Annie Plant Sciences Professor reflector. Final surgical pathology is pending. Sammie Lockwood M.D. ay/:11/29/2019 13:39:41 Offset Plate Maker: Carlee Hurtado, [facility]
--- NOTE | 2019-11-29 14:56 | Anesthesiology Progress Note ---
Date of Service November 29, 2019 Anesthesia Post Procedure Vital Signs Vital Signs: Temp Pulse Pulse Resp BP Pulse Ox 11/29/19 14:45 36.3 C L 89 20 163/82 H 100 11/29/19 14:35 88 15 152/76 H 100 11/29/19 14:25 93 H 18 158/77 H 100 11/29/19 14:16 36.1 C L 105 H 16 150/72 H 100 11/29/19 11:16 37 C 69 18 172/70 H 96 Transfer of Care Handoff Completed per policy Notes Mental Status: alert / awake / arousable and participated in evaluation Patient Amnestic to Procedure: Yes Nausea / Vomiting: adequately controlled Pain: adequately controlled Airway Patency, RR, SpO2: stable & adequate BP & HR: stable & adequate Hydration State: stable & adequate Anesthetic Complications: no major complications apparent and Pt Satisfied with anesthetic care
[2019-11-29] MEDS ORDERED: SODIUM CHLORIDE 0.9% 1000ML 1,000 ML IV SCH (15:48)
[2019-11-29] MEDS ORDERED: MoRPHine SULFATE 2 MG/ML CARP IV PRN ×2 (15:48)
[2019-11-29] MEDS ORDERED: ACETAMINOPHEN 325 MG TAB PO PRN (15:48)
[2019-11-29] MEDS ORDERED: HYDROCODONE/ACETAMOPHEN 5/325MG TAB PO PRN ×2 (15:48)
[2019-11-29] MEDS ORDERED: PROMETHAZINE HCL 12.5 MG in SODIUM CHLORIDE 0.9% 50 ML IV PRN (15:48)
[2019-11-29] MEDS ORDERED: PANTOprazole 40 MG TAB PO PRN (16:47)
--- NOTE | 2019-11-29 16:47 | Hospitalist Consultation ---
Date of Consultation November 29, 2019 Assessment & Plan (1) Breast cancer, left: S/p left breast lumpectomy with sentinel lymph node biopsy with Dr. Brewer on 11/29/2019. - Doing well post-operatively with minimal pain. - Post-op care per Dr. Brewer/surgical team (2) CAD (coronary artery disease): Non-obstructive on cath in 08/2018. - Continue statin as per PCP (reports she doesn't take it right now). (3) Hypertension: BP is 155/70 after surgery. - Continue home HTN meds (4) Diabetes: A1c was 6.3% in 09/2019. - Sliding scale insulin - Hold home metformin while inpatient (5) Dyspepsia: Occasionally takes PPI at home. - Elevate head of bed - PPI PRN (6) Depression: - Continue SSRI (7) DVT prophylaxis: Early ambulation/discharge; hold heparin per primary team History of Present Illness Attending Physician: Lenny Brewer MD, [facility] History of Present Illness 79yo F w/ hx of HTN, DM who presents as a medical consult after lumpectomy with Dr. Brewer on 11/29/2019. Patient had positive mammogram and then ultrasound with biopsy showing early breast cancer. Underwent lumpectomy and sentinal node biopsy today. Reports some left breast pain at the surgical site, but otherwise in good spirits. Allergies Allergy/AdvReac Type Severity Reaction Status Date / Time diphenhydramine Allergy Severe jerking Unverified 11/29/19 11:10 leg movements codeine Allergy Intermediate hives Unverified 11/29/19 11:10 shellfish derived Allergy Intermediate itchiness Verified 11/29/19 11:10 latex Allergy Mild hives, Verified 11/29/19 11:10 itchiness Iodinated Contrast Media Allergy Unknown "intolerant Verified 11/29/19 11:10 " ADHESIVE TAPE Allergy Intermediate skin Uncoded 11/29/19 11:10 redness, painful BERRIES Allergy Intermediate itchiness Uncoded 11/29/19 11:10 Home Medications Home Medications Medication Instructions Recorded Confirmed Type citalopram 20 mg tablet 20 mg PO DAILY 11/16/19 11/29/19 History lisinopril 20 1 tab PO DAILY 11/16/19 11/29/19 History mg-hydrochlorothiazide 12.5 mg tablet metformin 500 mg tablet 500 mg PO BID 11/16/19 11/29/19 History multivitamin 1 tab PO DAILY 11/16/19 11/29/19 History pravastatin 40 mg PO 3XWK 11/29/19 11/29/19 History Patient History Medical History (Updated 11/29/19 @ 16:46 by Del Deluca MD) Breast mass, left (Acute) left milk duct clogged CAD (coronary artery disease) mild, non-obstructive per 08/2018 cardiac cath Depression Hyperlipemia per records Left breast lump mild duct removal, mediport removal Left ventricular hypertrophy moderate, asymmetric LVH (focal thickening of basal septum with no evidence of LVOT obstruction) per 07/2018 stress echo, subsequent cardiac cath 08/2018 with mild, non-obstructive CAD, followed by Dr. Damien Robb Non-Hodgkin lymphoma hx chemo/xrt (several years ago) Type 2 diabetes mellitus NIDDM Surgical History History of cataract surgery BOTH EYES Hx of colonoscopy 2017 OR 2018 Hx of parotidectomy RIGHT SIDE 2009 S/P tonsillectomy 1957 Tubal ligation status 1977 Family History Mother Breast cancer Colorectal cancer Hypertension Stroke Daughter Breast cancer 2 daughters Father Diabetes Hypertension Social History Smoking Status: Never smoker Hx Alcohol Use: No Hx Substance Use: No Preferred Language: Swedish Communication Ability: Effective Lot Porter Required: No Beliefs That Will Affect Care: None marital status: Current Living Situation: Spouse current occupational status: retired Feels Safe at Home: Yes Safety Concerns: Feels Safe At This Time Review of Systems Review of Systems: All systems reviewed & are unremarkable except as noted in HPI & below Physical Exam Constitutional: WD/WN, vitals as above Eyes: EOM intact bilaterally; no conjunctival abnormality ENMT: external ear and nose normal, oropharynx normal Neck: trachea midline, no thyromegaly normal visual inspection Respiratory: normal respiratory effort, lungs clear to auscultation no respiratory distress Cardiovascular: RRR, no murmur, no edema Chest (Breasts): Chest: + abnormal inspection of chest (Left-sided surgical bandages) Gastrointestinal (Abdomen): Inspection/Auscultation: abdomen normal to inspection; abdomen not distended Musculoskeletal: no cyanosis or clubbing, extremities motor strength 5/5 Skin: no rashes, warm and dry Neurologic: moves all extremities and awake Psychiatric: Orientation: alert, oriented to person and cooperative Results & Data Results & Data ([facility]) Vital Signs (Past 12 Hours) Vital Signs Temp Pulse Pulse Resp BP Pulse Ox 11/29/19 16:14 36.4 C L 89 16 154/70 H 97 11/29/19 15:40 36.4 C L 84 16 161/73 H 100 11/29/19 15:25 87 12 155/79 H 97 11/29/19 15:15 85 16 159/77 H 98 11/29/19 15:05 86 15 162/77 H 100 11/29/19 14:55 89 19 162/82 H 100 11/29/19 14:45 36.3 C L 89 20 163/82 H 100 11/29/19 14:35 88 15 152/76 H 100 11/29/19 14:25 93 H 18 158/77 H 100 11/29/19 14:16 36.1 C L 105 H 16 150/72 H 100 11/29/19 11:16 37 C 69 18 172/70 H 96 PG Care Time/CCT Total # of Minutes Spent Total Time Spent with Patient: Total time spent is greater than 50% in coordin ation of care (as documented) at patient's floor/unit and/or counseling patient: Coding Level of Care Code 97377 Office/OBS Consult Lvl 4 Diagnoses Breast cancer, left C50.912 CAD (coronary artery disease) I25.10 Hypertension I10 Diabetes E11.9 Dyspepsia R10.13 Depression F32.9 DVT prophylaxis Z29.9
[2019-11-29] MEDS: CEFAZOLIN 1000MG 1,000 MG/7.5 ML SYR IV SCH (20:26)
[2019-11-30] MEDS: CEFAZOLIN 1000MG 1,000 MG/7.5 ML SYR IV SCH (03:02)
[2019-11-30 04:24] VITALS: TEMP 98.1
[2019-11-30] MEDS ORDERED: LR 15ML/HR IV SCH (06:00)
[2019-11-30 07:20] VITALS: O2SAT 93
[2019-11-30 08:46] VITALS: BP 145/67; PULSE 76
[2019-11-30] MEDS ORDERED: CITALOPRAM 20 MG TAB PO SCH (09:00)
[2019-11-30] MEDS ORDERED: LISINOPRIL/HCTZ 20/12.5MG 1 TAB TAB PO SCH (09:00)
--- NOTE | 2019-12-02 10:37 | Discharge Summary (DS) ---
PRINCIPAL DIAGNOSIS: Left breast cancer. PROCEDURES: The patient underwent left breast lumpectomy with sentinel lymph node biopsy. HISTORY OF PRESENT ILLNESS: The patient is a 79-year-old female with a left breast cancer, brought into the hospital for definitive surgery. On 11/29/2019, she was taken to the operating room where she underwent left breast lumpectomy with sentinel lymph node biopsy. The sentinel lymph node was negative. She tolerated the procedure well, did well overnight and was felt stable for discharge on 11/30/2019 to be followed in the surgical clinic within 1 week.
== END 2019-11-30 10:15 | disposition home or self-care (01) ==
LOC: ASU 09:55 → 3W 09:55

== ENCOUNTER 2021-02-26 10:23 | Observation (INO) ==
[2021-02-26 10:58] LABS: Appearance Urine Clear (Clear); Bilirubin Urine Negative (Negative); Blood Urine Negative (Negative); Color Urine Yellow; Glucose Urine UA Negative (Negative); Ketones Urine Negative (Negative); Leukocyte Esterase Urine Negative (Negative); Nitrite Urine Negative (Negative); Protein Urine Negative (Negative); Specific Gravity Urine 1.004 (1.000-1.030); Urobilinogen Urine Negative (Negative); pH Urine 6.5 (4.5-7.5)
--- NOTE | 2021-02-26 11:22 | Emergency Department Note ---
History of Present Illness General Chief complaint: Confusion Stated complaint: CONFUSION Time Seen by Provider: 02/26/21 11:06 Source: patient Mode of arrival: ambulatory Limitations: no limitations History of Present Illness Maximum Pain Intensity: 0 This patient comes in after having an episode where she could not remember things this morning. She is having numbness from her hips down for least a week she called her regular doctor and was started on medications for this she does have diabetes. She has pain associated with it. No weakness. No change in bowel or bladder function. She said today she just could remember small things simple things. She did have a Covid vaccine x2 with the last dose 2 weeks ago. She has had no fever or chills no headache or neck pain or stiffness no fall or trauma. No blood or melena stool. No chest pain shortness of breath or cough. No abdominal pain. No focal numbness or weakness except for the issue going on with her leg she is also some chronic back pain. Home Medications Medication Instructions Recorded Confirmed Type citalopram 20 mg tablet 20 mg PO DAILY 11/16/19 02/26/21 History lisinopril 20 1 tab PO DAILY 11/16/19 02/26/21 History mg-hydrochlorothiazide 12.5 mg tablet metformin 500 mg tablet 500 mg PO BID 11/16/19 02/26/21 History multivitamin 1 tab PO DAILY 11/16/19 02/26/21 History atorvastatin 20 mg tablet 20 mg PO DAILY 02/26/21 02/26/21 History acetaminophen 500 mg tablet 1,000 mg PO TID #90 tab 02/27/21 Rx (Tylenol Extra Strength) aspirin 81 mg tablet,delayed 81 mg PO QAM #90 tab 02/27/21 Rx release Allergies Allergy/AdvReac Type Severity Reaction Status Date / Time diphenhydramine Allergy Severe jerking Verified 02/26/21 11:34 leg movements codeine Allergy Intermediate hives Verified 02/26/21 11:34 shellfish derived Allergy Intermediate itchiness Verified 02/26/21 11:34 latex Allergy Mild hives, Verified 02/26/21 11:34 itchiness amoxicillin Allergy Unknown Verified 02/26/21 11:34 ciprofloxacin [From Cipro] Allergy Unknown Verified 02/26/21 11:34 Iodinated Contrast Media Allergy Unknown "intolerant Verified 02/26/21 11:34 " cefazolin [From Ancef] AdvReac Intermediate Verified 02/26/21 11:34 ADHESIVE TAPE Allergy Intermediate skin Uncoded 02/26/21 11:34 redness, painful BERRIES Allergy Intermediate itchiness Uncoded 02/26/21 11:34 Past Med/Surg History Medical History (Updated 02/28/21 @ 11:37 by Farhat Ann MD) Anxiety Arthritis Breast mass, left 2011 - left milk duct clogged removed by Dr. Rosado CAD (coronary artery disease) mild, non-obstructive per 08/2018 cardiac cath Depression Dyspepsia Fall History of chemotherapy 2009 - R-CHOP x [address] Argueta History of radiation therapy 2010 to right jaw/neck Hyperlipemia per records Hypertension Left ventricular hypertrophy moderate, asymmetric LVH (focal thickening of basal septum with no evidence of LVOT obstruction) per 07/2018 stress echo, subsequent cardiac cath 08/2018 with mild, non-obstructive CAD, followed by Dr. Damien Robb Left wrist injury Lumbar spinal stenosis Non-Hodgkin lymphoma 2009 hx chemo/xrt (several years ago) Tailbone injury Type 2 diabetes mellitus Vasovagal syncope Weakness of both lower extremities Due to neuropathy Surgical History History of cataract surgery 2016 - BOTH EYES History of lumpectomy of left breast 2011 - Milk Duct Removal, 11/10/2019 - with SLN Biopsy History of tubal ligation 1977 Hx of colonoscopy 2017 OR 2018 Hx of parotidectomy RIGHT SIDE 2009 Port-A-Cath in place Removal in 2011 S/P tonsillectomy 1957 Family History Mother , Passed age 82 of sepsis (cancer complications) Breast cancer, Onset Age: 58 Colorectal cancer Hypertension Stroke Daughter Breast cancer, Onset Age: 48 Father , Passed age 88 of natural causes Diabetes Hypertension Daughter Breast cancer, Onset Age: 45 Son , Passed age 27 from suicide No problems noted. Brother No problems noted. 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 Feels Safe at Home: Yes Childhood Exposure to Second-Hand Smoke: Yes caffeine: Yes (1/2 caf - 3 cup/day) during the past year weight has: remained stable Dental Care, Regularly: Yes Assistive Devices: Walker Review of Systems A total of 10 systems reviewed and were otherwise negative Physical Exam Vital Signs Vital Signs - 24 hr 02/26/21 10:25 Temperature 36.9 C Temperature Source Oral Pulse Rate 98 H Respiratory Rate 18 Respiratory Effort / Characteristics Non-Labored Spontaneous Respiratory Depth Normal Respiratory Pattern Regular Blood Pressure 173/95 H Blood Pressure Mean 121 Blood Pressure Position Sitting Pulse Oximetry 97 Oxygen Delivery Method Room Air Sepsis Recent Fever Within 48 Hours No Sepsis New/Unexplained Change in Mental Status N/A Sepsis Action Taken by Nursing No Action Required General: Well developed well nourished older female who appears in no acute distress, breathing comfortably on room air. Normal speech HEENT: Normal cephalic atraumatic. Pupils are equal round and reactive to light. Extraocular movements are intact. Oropharynx is pink with moist mucous membranes. No swelling of the mouth lips or tongue. Neck: Supple with a midline trachea. No meningeal signs or stiffness, no JVD or bruits. No Stridor. Chest: Clear to auscultation bilaterally. No wheezes or rhonchi. No increased work of breathing. Heart: Regular rate and rhythm without murmurs or gallops. Abdomen: Soft nontender, nondistended without rebound guarding or rigidity. Extremities: No cyanosis clubbing or edema. No calf tenderness or assymetry Spine/Back. Non tender to palpation. No CVA tenderness Skin: Good turgor without rashes. Neurologic exam: Cranial nerves two through 12 are intact. Motor and sensation are intact and symmetrical throughout. No tremor. Finger-nose intact. She says that she feels tingling in her legs however she is intact to light touch and has 2+ patellar and Achilles reflex bilaterally. Course Administered Medications Discontinued Medications Aspirin (Aspirin 81 Mg Ectab) 81 mg PO QAM [facility] Stop: 03/29/21 08:59 Last Admin: 02/27/21 07:43 Dose: 81 mg Documented by: [id number] Atorvastatin Calcium (Atorvastatin 20 Mg Tab) 20 mg PO DAILY [facility] Stop: 03/29/21 08:59 Last Admin: 02/27/21 07:43 Dose: 20 mg Documented by: [id number] Citalopram Hydrobromide (Citalopram 20 Mg Tab) 20 mg PO NOW ONE Stop: 02/26/21 14:01 Last Admin: 02/26/21 14:46 Dose: 20 mg Documented by: [id number] Lisinopril/HCTZ (Lisinopril/Hctz 20/12.5mg 1 Tab Tab) 1 tab PO DAILY [facility] Stop: 03/29/21 08:59 Last Admin: 02/27/21 07:43 Dose: 1 tab Documented by: [id number] Heparin Sodium (Porcine) (Heparin Sod 5,000 Unit/0.5 Ml Vial) 5,000 units SQ Q12 [facility] Stop: 03/28/21 20:59 Last Admin: 02/27/21 07:42 Dose: 5,000 units Documented by: [id number] Admin: 02/26/21 23:16 Dose: 5,000 units Documented by: [id number] Hydrochlorothiazide (Hydrochlorothiazide 25 Mg Tab) 12.5 mg PO NOW ONE Stop: 02/26/21 14:01 Last Admin: 02/26/21 14:47 Dose: 12.5 mg Documented by: [id number] Insulin Aspart (Insulin Aspart 100 Units/Ml 3 Ml Pen) 0 units SC ACHS [facility] Stop: 03/28/21 18:32 Last Admin: 02/27/21 12:17 Dose: 3 units Documented by: [id number] Cosigned by: [id number] Admin: 02/27/21 07:48 Dose: 2 units Documented by: [id number] Cosigned by: [id number] Admin: 02/26/21 23:15 Dose: Not Given Documented by: [id number] Admin: 02/26/21 23:11 Dose: Not Given Documented by: [id number] Lidocaine (Lidocaine 5% 1 Patch) 1 patch TD QAM [facility] Stop: 03/29/21 08:59 Last Admin: 02/27/21 07:42 Dose: 1 patch Documented by: [id number] Lidocaine (Lidocaine 5% 1 Patch) 1 patch TD QAM [facility] Stop: 03/28/21 19:59 Last Admin: 02/27/21 07:42 Dose: 1 patch Documented by: [id number] Admin: 02/26/21 23:13 Dose: 1 patch Documented by: [id number] Lisinopril (Lisinopril 20 Mg Tab) 20 mg PO NOW ONE Stop: 02/26/21 14:01 Last Admin: 02/26/21 14:47 Dose: 20 mg Documented by: [id number] Lorazepam (Lorazepam 0.5 Mg Tab) 0.5 mg PO NOW STA Stop: 02/26/21 15:02 Last Admin: 02/26/21 17:26 Dose: Not Given Documented by: [id number] Lorazepam (Lorazepam 0.5 Mg Tab) Confirm Administered Dose 0.5 mg .ROUTE .STK- MED ONE Stop: 02/26/21 17:23 Last Admin: 02/26/21 17:26 Dose: 0.5 mg Documented by: [id number] Melatonin (Melatonin 3 Mg Tab) 3 mg PO HS PRN PRN Reason: Sleep Stop: 03/29/21 00:01 Last Admin: 02/27/21 00:47 Dose: 3 mg Documented by: [id number] Miscellaneous (Remove Lidoderm Patch) 1 ea N/A DAILY@2100 [facility] Stop: 03/28/21 20:59 Last Admin: 02/26/21 23:04 Dose: Not Given Documented by: [id number] Perflutren Lipid Microsphere (Perflutren Lipid Microsphere (Definity)) 2 ml IV ONCE ONE Stop: 02/27/21 10:26 Last Admin: 02/27/21 10:25 Dose: 2 ml Documented by: [id number] Critical Care Time Critical Care Time: Yes Total Critical Care Time: 45 Due to the patient's waxing and waning neurologic symptoms, need to call a stroke alert with discussion with the stroke neurologist, altered mental status, need for multiple testing, frequent reassessment, monitoring and consultation as well as discussion with the patient and her family, I have personally spent greater than 45 minutes of critical care time in the direct management of this patient. This includes bedside care, interpretation of diagnostic studies, and testing, discussion with consultants, patient, and family members, and other required patient management activities. This 30 minutes is in excess of all separately billable procedures. Medical Decision Making Differential Diagnosis TIA, intracranial process, cancer complication,infection, electrolyter or metabolic, cardiac disease, Covid, neuropathy, diabetic complication, toxicologic/metabolic Medical Records Attestation: I reviewed the patient's medical records. Home Medications Current Medication List: was personally reviewed by me Laboratory Data Attestation: I reviewed the patient's lab results. Result diagrams: 02/27/21 06:42 02/27/21 06:42 Lab Results 02/26/21 02/26/21 02/26/21 Range/Units 10:45 11:57 12:00 WBC 6.60 (4.8-10.8) K/uL RBC 4.53 (4.2-5.4) M/uL Hgb 13.9 (12.0-16.0) g/dL Hct 42.2 (37-47) % MCV 93.2 (80-100) fL MCH 30.7 (25-34) pg MCHC 32.9 (32-36) g/dL RDW Std Deviation 44.6 (36.4-46.3) fL RDW Coeff of Brenda 13.0 (11.5-14.5) % Plt Count 217 (130-400) K/uL MPV 10.2 (7.4-10.4) fL Immature Gran % (Auto) 0.3 % Neut % (Auto) 65.9 % Lymph % (Auto) 25.5 % [place] % (Auto) 6.4 % Eos % (Auto) 1.4 % Baso % (Auto) 0.5 % Neut # (Auto) 4.36 (1.4-6.5) K/uL Lymph # (Auto) 1.68 (1.2-3.4) K/uL [place] # (Auto) 0.42 (0.11-0.59) K/uL Eos # (Auto) 0.09 (0-0.5) K/uL Baso # (Auto) 0.03 (0-0.2) K/uL Immature Gran # (Auto) 0.02 (0.00-0.02) K/uL PT (9.0-12.0) Seconds INR (0.9-1.1) APTT (21.0-31.0) Seconds PTT Ratio Sodium (136-145) mmol/L Potassium (3.5-5.1) mmol/L Chloride (98-107) mmol/L Carbon Dioxide (21-32) mmol/L Anion Gap (3-11) BUN (7-18) mg/dl Creatinine (0.6-1.2) mg/dl Est Cr Clr Drug Dosing ml/min Est GFR ( Amer) ml/min Est GFR (Non-Af Amer) ml/min BUN/Creatinine Ratio (10-20) Glucose (70-99) mg/dl POC Glucose 122 H (70-99) mg/dl Calcium (8.5-10.1) mg/dl Magnesium (1.8-2.4) mg/dl Total Bilirubin (0.2-1) mg/dl AST (15-37) U/L ALT (12-78) U/L Alkaline Phosphatase (45-117) U/L Troponin I (0-0.045) ng/ml Total Protein (6.4-8.2) gm/dl Albumin (3.4-5.0) gm/dl Globulin (2.5-4.0) gm/dl Albumin/Globulin Ratio (0.9-2) Urine Color Yellow Urine Appearance Clear (Clear) Urine pH 6.5 (4.5-7.5) Ur Specific [place] 1.004 (1.000-1.030) Urine Protein Negative (Negative) Urine Glucose (UA) Negative (Negative) Urine Ketones Negative (Negative) Urine Blood Negative (Negative) Urine Nitrite Negative (Negative) Urine Bilirubin Negative (Negative) Urine Urobilinogen Negative (Negative) Ur Leukocyte Esterase Negative (Negative) COVID-19 Eval Order SARS-CoV-2 (PCR) (Negative) 02/26/21 02/26/21 02/26/21 Range/Units 12:00 12:00 12:00 WBC (4.8-10.8) K/uL RBC (4.2-5.4) M/uL Hgb (12.0-16.0) g/dL Hct (37-47) % MCV (80-100) fL MCH (25-34) pg MCHC (32-36) g/dL RDW Std Deviation (36.4-46.3) fL RDW Coeff of Brenda (11.5-14.5) % Plt Count (130-400) K/uL MPV (7.4-10.4) fL Immature Gran % (Auto) % Neut % (Auto) % Lymph % (Auto) % [place] % (Auto) % Eos % (Auto) % Baso % (Auto) % Neut # (Auto) (1.4-6.5) K/uL Lymph # (Auto) (1.2-3.4) K/uL [place] # (Auto) (0.11-0.59) K/uL Eos # (Auto) (0-0.5) K/uL Baso # (Auto) (0-0.2) K/uL Immature Gran # (Auto) (0.00-0.02) K/uL PT 9.9 (9.0-12.0) Seconds INR 1.0 (0.9-1.1) APTT 24.8 (21.0-31.0) Seconds PTT Ratio 0.9 Sodium 140 (136-145) mmol/L Potassium 3.8 (3.5-5.1) mmol/L Chloride 107 (98-107) mmol/L Carbon Dioxide 28 (21-32) mmol/L Anion Gap 5.0 (3-11) BUN 17 (7-18) mg/dl Creatinine 0.82 (0.6-1.2) mg/dl Est Cr Clr Drug Dosing 54.1 ml/min Est GFR ( Amer) 78.9 ml/min Est GFR (Non-Af Amer) 68.1 ml/min BUN/Creatinine Ratio 21.0 H (10-20) Glucose 111 H (70-99) mg/dl POC Glucose (70-99) mg/dl Calcium 9.5 (8.5-10.1) mg/dl Magnesium 2.4 (1.8-2.4) mg/dl Total Bilirubin 0.5 (0.2-1) mg/dl AST 20 (15-37) U/L ALT 31 (12-78) U/L Alkaline Phosphatase 88 (45-117) U/L Troponin I < 0.015 (0-0.045) ng/ml Total Protein 8.0 (6.4-8.2) gm/dl Albumin 3.9 (3.4-5.0) gm/dl Globulin 4.1 H (2.5-4.0) gm/dl Albumin/Globulin Ratio 0.9 (0.9-2) Urine Color Urine Appearance (Clear) Urine pH (4.5-7.5) Ur Specific [place] (1.000-1.030) Urine Protein (Negative) Urine Glucose (UA) (Negative) Urine Ketones (Negative) Urine Blood (Negative) Urine Nitrite (Negative) Urine Bilirubin (Negative) Urine Urobilinogen (Negative) Ur Leukocyte Esterase (Negative) COVID-19 Eval Order Covid19 at [facility] SARS-CoV-2 (PCR) (Negative) 02/26/21 02/26/21 Range/Units 12:00 13:05 WBC (4.8-10.8) K/uL RBC (4.2-5.4) M/uL Hgb (12.0-16.0) g/dL Hct (37-47) % MCV (80-100) fL MCH (25-34) pg MCHC (32-36) g/dL RDW Std Deviation (36.4-46.3) fL RDW Coeff of Brenda (11.5-14.5) % Plt Count (130-400) K/uL MPV (7.4-10.4) fL Immature Gran % (Auto) % Neut % (Auto) % Lymph % (Auto) % [place] % (Auto) % Eos % (Auto) % Baso % (Auto) % Neut # (Auto) (1.4-6.5) K/uL Lymph # (Auto) (1.2-3.4) K/uL [place] # (Auto) (0.11-0.59) K/uL Eos # (Auto) (0-0.5) K/uL Baso # (Auto) (0-0.2) K/uL Immature Gran # (Auto) (0.00-0.02) K/uL PT (9.0-12.0) Seconds INR (0.9-1.1) APTT (21.0-31.0) Seconds PTT Ratio Sodium (136-145) mmol/L Potassium (3.5-5.1) mmol/L Chloride (98-107) mmol/L Carbon Dioxide (21-32) mmol/L Anion Gap (3-11) BUN (7-18) mg/dl Creatinine (0.6-1.2) mg/dl Est Cr Clr Drug Dosing ml/min Est GFR ( Amer) ml/min Est GFR (Non-Af Amer) ml/min BUN/Creatinine Ratio (10-20) Glucose (70-99) mg/dl POC Glucose 111 H (70-99) mg/dl Calcium (8.5-10.1) mg/dl Magnesium (1.8-2.4) mg/dl Total Bilirubin (0.2-1) mg/dl AST (15-37) U/L ALT (12-78) U/L Alkaline Phosphatase (45-117) U/L Troponin I (0-0.045) ng/ml Total Protein (6.4-8.2) gm/dl Albumin (3.4-5.0) gm/dl Globulin (2.5-4.0) gm/dl Albumin/Globulin Ratio (0.9-2) Urine Color Urine Appearance (Clear) Urine pH (4.5-7.5) Ur Specific [place] (1.000-1.030) Urine Protein (Negative) Urine Glucose (UA) (Negative) Urine Ketones (Negative) Urine Blood (Negative) Urine Nitrite (Negative) Urine Bilirubin (Negative) Urine Urobilinogen (Negative) Ur Leukocyte Esterase (Negative) COVID-19 Eval Order SARS-CoV-2 (PCR) NEGATIVE (Negative) Imaging Data Attestation: I personally reviewed and interpreted this imaging study as follows: My Impression: Chest x-rayno acute infiltrate, failure, pneumothorax seen Radiologist's Impression: Abdomen/Pelvis CT 02/26/21 11:18 CT abd pelvis wo con CLINICAL HISTORY: Back pain into legs TECHNIQUE: Helical axial images of the abdomen and pelvis were obtained. Automated dose lowering techniques and/or adjustment according to patient size were utilized for this exam. This exam was performed without intravenous contrast. COMPARISON: Comparison is made to CT abdomen and pelvis 08/07/2017 FINDINGS: Lower chest: Bibasilar atelectasis is seen. Liver: Unremarkable. No focal lesions are seen. Gallbladder and biliary tree: No calcified gallstones. Normal caliber wall. No intra- or extrahepatic biliary ductal dilation. Pancreas: Unremarkable, no focal lesions. Spleen: Unremarkable. Adrenals: Unremarkable. Kidneys and ureters: Bilateral simple cysts are noted. Bladder: Unremarkable. Reproductive organs: Unremarkable. Bowel: A hiatal hernia is seen. The appendix is normal. Lymph nodes Retroperitoneal: Unremarkable. Mesenteric: Unremarkable. Pelvic: Unremarkable. Peritoneum: Normal Vessels: Atherosclerotic calcifications are seen. Abdominal wall: Unremarkable. Bones: Degenerative changes are seen. In particular, there is grade 1 anterolisthesis of L3-L4 and L4-5 resulting in significant spinal stenosis. IMPRESSION: 1. No acute abnormalities. Please see CT lumbar spine performed same day for detailed findings of degenerative changes in the spine. 2. Multiple renal cysts noted. ACT 112: Negative or not required by law. Electronically signed by: Jeyson Moore M.D. 02/26/2021 1:[address] 02/26/21 11:[address] DOSE: HISTORY: Low back pain TECHNIQUE: Multiaxial CT images of the lumbar spine were performed and refor matted in the sagittal and coronal plane without the use of contrast. A dose lowering technique was utilized adhering to the principles of ALARA. COMPARISON: Lumbar spine MRI 09/06/2016. FINDINGS: There is 4 mm of anterolisthesis of L3 on L4. Mild disc space narrowing throughout the lumbar spine. There are moderate facet degenerative changes from L2 through S1. The visualized sacrum is intact. No fractures within the lumbar spine. No suspicious lytic are blastic osseous lesions. Minimal lev oscoliosis which may be positional. Paravertebral soft tissues are unremarkable. Severe central canal narrowing at L2-L3, L3-L4, L4-5. This is similar to the prior MRI. IMPRESSION: 1. No fractures within the lumbar spine. 2. Severe central canal narrowing from L2 through L5 which is similar to the prior MR spine MRI. ACT 112: Negative or not required by law. Electronically signed by: Bandar Gay M.D. 02/26/2021 1:[address] 02/26/21 11:[address] DOSE: 1277.12 mGycm HISTORY: Stroke Like Symptoms TECHNIQUE: Multiaxial CT images of the head were performed without the use of intravenous contrast. Automated exposure control was utilized for this study. A dose lowering technique was utilized adhering to the principles of ALARA. Comparison: None. Findings: The paranasal sinuses and mastoid air cells are clear. The calvarium and skull base are intact. There is no mass, hematoma, midline shift, acute infarct. White matter hypodensity is nonspecific but suggestive of microvascular ischemic change. The ventricles and sulci demonstrate mild age-related involutional changes. Small hypodense foci inferior to the bilateral basal ganglia are consistent with prominent perivascular spaces. Impression: No acute intracranial abnormality. Atrophy and microvascular ischemic changes. ACT 112: Negative or not required by law. Electronically signed by: Bandar Gay M.D. 02/26/2021 1:01 PM Chest X-Ray 02/26/21 13:08 SINGLE VIEW CHEST CLINICAL HISTORY: Generalized weakness. FINDINGS: 2 AP, portable, upright chest radiographs are compared to study dated 01/25/2010. The cardiomediastinal silhouette is unremarkable noting atherosclerotic calcification of the thoracic aorta. Chronic interstitial thickening is similar to previous. The lungs and pleural spaces are clear. No pneumothorax is seen. The skeletal structures are osteopenic. The bony thorax is grossly intact. Degenerative change is noted in the shoulders. IMPRESSION: No active disease in the chest. ACT 112: Negative or not required by law. Electronically signed by: Wesley Saravia M.D. 02/26/2021 1:53 PM ECG Data Attestation: I personally reviewed and interpreted this ECG as follows: Indication: + weakness Rate (beats per minute): 92 ECG Intervals/blocks: + Normal QRS, + Normal QT and + Normal PA ECG [place]: + Normal ECG ST segments: + Normal ST segments ECG Findings: + Other (Low voltage); no PACs or no PVCs Comparison ECG Date: from (11/22/19) Change: no significant change MDM Narrative This patient comes in as described above. She was placed in room B12. She is here for treatment and evaluation of episode where she could remember things she seemed to be doing better now and has a normal neurologic exam with exception of some tingling in her legs have been going on for a week or so. It may be neuropathy and unrelated. She has intact 2+ reflexes in the patella and Achil les bilaterally. Her legs are not red or swollen. They are mildly tender to palpation as well. A full stroke type work-up was obtained Covid testing was obtained EKG multiple blood testing was obtained I did a CAT scan of her head as well as lumbar spine. She does have intolerance of IV contrast so I did not do CTAs. CAT scan of her head was unremarkable. CAT scan of her abdomen and back show some degenerative spinal disease but nothing acute. She has no fever or white count to suggest infection she has nothing to suggest meningitis or encephalitis. She has no acute electrolyte or metabolic abnormality seen. She has nothing suggest liver gallbladder pancreas disease. The patient looks well when I saw her initially however when she came back from CAT scan she was confused and forgetful the way she was prior to coming here. I went in to see her and we did a repeat set of vital signs and checked her blood sugar. Her blood sugar was 110. She clearly was different she could remember why she was here and had memory issues and confusion but besides that she had otherwise nonfocal neurologic exam. I did call a stroke alert and talk to Dr. Streeter, from [facility]. He agreed that the patient would not meet TPA criteria and felt that it was most likely related to high blood pressure. She did have a spike of blood pressure at the time to 195/114. She has not taken her normal medications for blood pressure and anxiety yet so I did order these. I went back and checked on her and her blood pressure is coming down without treatment at this point and her symptoms have completely resolved. It may have been hypertensive encephalopathy related to the spike in blood pressure. I do think she needs to be admitted for further treatment and evaluation. I did have d iscussed this with the [facility] admitting team and they have asked that I order MRI. The patient is of claustrophobia so I did order some Ativan to be given prior to the MRI. The patient has remained stable after this episode. She will be admitted/observed. She is also on tramadol is potential that this or another medications could have caused her some of her symptoms however they seemed very intermittent Continuous cardiac monitoring: Orders placed in EMR for continuous clinical research monitor. Upon my interpretation the patient noted to be in normal sinus rhythm with a rate of 90. Impression & Plan Acute alteration in mental status, Type 2 diabetes mellitus, Anxiety, Acute confusion, Encephalopathy, hypertensive, Lab test negative for COVID-19 virus Discharge Plan Visit Data Chief Complaint: Confusion Stated Complaint: CONFUSION ED Provider: Farhat Ann Discharge Problem: Acute alteration in mental status, Type 2 diabetes mellitus, Anxiety, Acute confusion, Encephalopathy, hypertensive, Lab test negative for COVID-19 virus Patient Disposition: Admitted As Inpatient Discharge Instructions Interventions: ED Discharge Assessment Last Done: 02/26/21 17:40 Discharge Problem: Type 2 diabetes mellitus Qualifiers: Diabetes mellitus prison insulin use: without prison use Diabetes mellitus complication status: without complication Qualified Code(s): E11.9 - Type 2 diabetes mellitus without complications
[2021-02-26 12:21] LABS: Basophils # (auto) 0.03 K/uL (0-0.2); Basophils % (auto) 0.5 %; Eosinophils # (auto) 0.09 K/uL (0-0.5); Eosinophils % (auto) 1.4 %; Hematocrit (blood only) 42.2 % (37-47); Hemoglobin 13.9 g/dL (12.0-16.0); Immature Granulocytes # (auto) 0.02 K/uL (0.00-0.02); Immature Granulocytes % (auto) 0.3 %; Lymphocytes # (auto) 1.68 K/uL (1.2-3.4); Lymphocytes % (auto) 25.5 %; Mean Corpuscular Hemoglobin 30.7 pg (25-34); Mean Corpuscular Hgb Conc 32.9 g/dL (32-36); Mean Corpuscular Volume 93.2 fL (80-100); Mean Platelet Volume 10.2 fL (7.4-10.4); Monocytes # (auto) 0.42 K/uL (0.11-0.59); Monocytes % (auto) 6.4 %; Neutrophils # (auto) 4.36 K/uL (1.4-6.5); Neutrophils % (auto) 65.9 %; Platelet Count 217 K/uL (130-400); RDW Standard Deviation 44.6 fL (36.4-46.3); Red Blood Count 4.53 M/uL (4.2-5.4)
[2021-02-26 12:29] LABS: Partial Thromboplastin Ratio 0.9; Partial Thromboplastin Time 24.8 Seconds (21.0-31.0); Prothrombin Time 9.9 Seconds (9.0-12.0)
[2021-02-26 12:35] LABS: Alanine Aminotransferase 31 U/L (12-78); Albumin Level 3.9 gm/dl (3.4-5.0); Aspartate Aminotransferase 20 U/L (15-37); Blood Urea Nitrogen 17 mg/dl (7-18); Calcium 9.5 mg/dl (8.5-10.1); Carbon Dioxide 28 mmol/L (21-32); Chloride 107 mmol/L (98-107); Creatinine Clr Calc Pharmacy 54.1 ml/min; Est GFR (African American) 78.9 ml/min; Est GFR (Non-African American) 68.1 ml/min; Glucose 111 mg/dl (70-99); Magnesium 2.4 mg/dl (1.8-2.4); Potassium 3.8 mmol/L (3.5-5.1); Sodium 140 mmol/L (136-145)
[2021-02-26 12:40] LABS: Albumin Globulin Ratio 0.9 (0.9-2); Alkaline Phosphatase 88 U/L (45-117); Bilirubin,Total 0.5 mg/dl (0.2-1); Globulin 4.1 gm/dl (2.5-4.0); Troponin I < 0.015 ng/ml (0-0.045)
--- NOTE | 2021-02-26 13:03 | CT Scan Report ---
HEAD CT NONCONTRAST CT DOSE: 1277.12 mGycm HISTORY: Stroke Like Symptoms TECHNIQUE: Multiaxial CT images of the head were performed without the use of intravenous contrast. A utomated exposure control was utilized for this study. A dose lowering technique was utilized adheri ng to the principles of ALARA. Comparison: None. Findings: The paranasal sinuses and mastoid air cells are clear. The calvarium and skull base are int act. There is no mass, hematoma, midline shift, acute infarct. White matter hypodensity is nonspecifi c but suggestive of microvascular ischemic change. The ventricles and sulci demonstrate mild age-rela joan involutional changes. Small hypodense foci inferior to the bilateral basal ganglia are consistent with prominent perivascular spaces. Impression: No acute intracranial abnormality. Atrophy and microvascular ischemic changes. ACT 112: Negative or not required by law. Electronically signed by: Bandar Gay M.D. 02/26/2021 1:01 PM
--- NOTE | 2021-02-26 13:09 | CT Scan Report ---
LUMBAR SPINE CT CT DOSE: HISTORY: Low back pain TECHNIQUE: Multiaxial CT images of the lumbar spine were performed and reformatted in the sagittal an d coronal plane without the use of contrast. A dose lowering technique was utilized adhering to the principles of ALARA. COMPARISON: Lumbar spine MRI 09/06/2016. FINDINGS: There is 4 mm of anterolisthesis of L3 on L4. Mild disc space narrowing throughout the lumb ar spine. There are moderate facet degenerative changes from L2 through S1. The visualized sacrum is intact. No fractures within the lumbar spine. No suspicious lytic are blastic osseous lesions. Minima l levoscoliosis which may be positional. Paravertebral soft tissues are unremarkable. Severe central canal narrowing at L2-L3, L3-L4, L4-5. This is similar to the prior MRI. IMPRESSION: 1. No fractures within the lumbar spine. 2. Severe central canal narrowing from L2 through L5 which is similar to the prior MR spine MRI. ACT 112: Negative or not required by law. Electronically signed by: Bandar Gay M.D. 02/26/2021 1:08 PM
--- NOTE | 2021-02-26 13:11 | CT Scan Report ---
CT abd pelvis wo con CLINICAL HISTORY: Back pain into legs TECHNIQUE: Helical axial images of the abdomen and pelvis were obtained. Automated dose lowering tech niques and/or adjustment according to patient size were utilized for this exam. This exam was perfor med without intravenous contrast. COMPARISON: Comparison is made to CT abdomen and pelvis 08/07/2017 FINDINGS: Lower chest: Bibasilar atelectasis is seen. Liver: Unremarkable. No focal lesions are seen. Gallbladder and biliary tree: No calcified gallstones. Normal caliber wall. No intra- or extrahepatic biliary ductal dilation. Pancreas: Unremarkable, no focal lesions. Spleen: Unremarkable. Adrenals: Unremarkable. Kidneys and ureters: Bilateral simple cysts are noted. Bladder: Unremarkable. Reproductive organs: Unremarkable. Bowel: A hiatal hernia is seen. The appendix is normal. Lymph nodes Retroperitoneal: Unremarkable. Mesenteric: Unremarkable. Pelvic: Unremarkable. Peritoneum: Normal Vessels: Atherosclerotic calcifications are seen. Abdominal wall: Unremarkable. Bones: Degenerative changes are seen. In particular, there is grade 1 anterolisthesis of L3-L4 and L4 -5 resulting in significant spinal stenosis. IMPRESSION: 1. No acute abnormalities. Please see CT lumbar spine performed same day for detailed findings of de generative changes in the spine. 2. Multiple renal cysts noted. ACT 112: Negative or not required by law. Electronically signed by: Jeyson Moore M.D. 02/26/2021 1:10 PM
--- NOTE | 2021-02-26 13:55 | XRay Report ---
SINGLE VIEW CHEST CLINICAL HISTORY: Generalized weakness. FINDINGS: 2 AP, portable, upright chest radiographs are compared to study dated 01/25/2010. The cardio mediastinal silhouette is unremarkable noting atherosclerotic calcification of the thoracic aorta. Ch ronic interstitial thickening is similar to previous. The lungs and pleural spaces are clear. No pneu mothorax is seen. The skeletal structures are osteopenic. The bony thorax is grossly intact. Degenera tive change is noted in the shoulders. IMPRESSION: No active disease in the chest. ACT 112: Negative or not required by law. Electronically signed by: Wesley Saravia M.D. 02/26/2021 1:53 PM
[2021-02-26] MEDS ORDERED: lisinopril 20 MG TAB PO ONE (14:00)
[2021-02-26] MEDS ORDERED: hydroCHLOROthiazide 25 MG TAB PO ONE (14:00)
[2021-02-26] MEDS ORDERED: CITALOPRAM 20 MG TAB PO ONE (14:00)
[2021-02-26] MEDS ORDERED: LORazepam 0.5 MG TAB PO STA (15:01)
--- NOTE | 2021-02-26 16:08 | History & Physical Report ---
Date of Service February 26, 2021 Assessment & Plan (1) Stroke-like symptoms: Plan: Stroke like symptoms of confusion- no focal deficits- risk factors DM, HTN, HLD, CA DDX: Polypharmacy, TIA, TGA, HTN uncontrolled, - short term amnesia and confusion- MRI of the brain and carotids - If unable to tolerate MRI fully secondary to agitation will obtain duplex of the carotids - No other focal deficits and NIHSS 0 - CT of the head no acute process or masses - Will add ASA daily for CVD prevention - Lipid panel in the morning- not on therapy as outpatient - Pending MRI results for further evaluation and treatment - If this is HTN induced will add additional agents - If TGA this will likely clear - no seizure activity - Hold Tramadol and other sedatives as able- patient has multiple drug intolerances, and voices she always reacts differently to medications. Patient was unable to tolerate MRI even with sedation, has had no further episodes of confusion - Carotid Doppler will be ordered- low yield - follow through PM with medication holding (2) Hypertension: Plan: Review of our records that are available patient has spikes and records of controlled BP, over the past year BP has been >140s - Continue MIL/HCTZ - Likely add on another agent trending BP overnight - Will add PRN Labetalol for SBP >180 DBP >100 - IF MRI evident of acute CVA will adjust therapy for permissive HTN - No evidence of PRESS on CT- MRI as above (3) Type 2 diabetes mellitus: Plan: Patient on Metformin - will hold - HGB A2C in morning - transition to aspart sliding scale overnight: CF 20 with ratio 1:15 (4) Weakness of both lower extremities: Plan: Chronic with lower back pain - was going to chiropractor today - continue outpatient support (5) Depression: Plan: Continue citalopram (6) CAD (coronary artery disease): Plan: Stress ECHO indeterminent in 2019 secondary to HTN and poor excercise tolerance - Cath in 2019- minimal nonobstructive CAD LM -luminal irregularities LAD -mildly calcified, proximal mid luminal irregularities, tortuous in the distal segment as wraps around apex. Gives off small first diagonal without s ignificant disease Circumflex -moderate caliber, angiographically normal RCA -dominant, proximal luminal irregularities otherwise no significant disease As above - add daily asa, lipid lowering medication pending lipid panel in the morning (7) Anxiety: Plan: on Citalopram at home - leo gets anxious easily and trembling noted with mention of MRI - Benzo prior to MRI (8) Malignant neoplasm of central portion of left breast in female, estrogen receptor positive: Plan: lumpectomy with node biopsy T1N0 stage Ia -no antiestrogen therapy and no further radiation/chemotherapy - radiation therapy [id number] completed in February 28 History of Present Illness Primary Care Provider: Celso Lala MD 80 YOF with past medical history of : HTN, DMII, chronic back pain, parotid gland tumor s/p resection- non Hodgkin' lymphoma (chemo/radiation 2010), breast cancer (ER+)- grade I. Patient comes to the EMD today brought in by her daughter secondary to confusion and amnesia. The patient reports that starting this morning she just felt "off" and normally talks to her daughter every morning. her daughter states that she was having poor memory this morning in regards to what she was doing or if she took her medications. The patient recalls some events from yesterday including watching the football games, but really can't recall what she did this morning including getting up. She denies that she was having any weakness or coordination issues, but just how to do simple things. In the EMD there was concern for CVA and stroke workup was started. The patient went to CT scan of the head and upon CT of the head the patient became confused and disoriented again, her BP was elevated (170s/90s) upon return and had no other neurological deficits. The telestroke team recommended BP control and symptoms possibly related to her HTN. She was given her home MIL and BP improved as well as symptoms. The hospitalist was notified for admission, MRI and MRA of the carotids pending. Upon evaluation the patient feels she is back to normal but still with some difficulty remembering events from this morning. NIHSS 0 Upon further questioning it was noted that the patient, who has chronic back pain, had a flare up last week while doing house work and was placed on "muscle relaxer" and Tramadol. The patient reports that yesterday she took these more than she took them over the past week because of her back discomfort. Patient will be admitted to continue evaluation of her mentation- MRI brain and MRA carotids as above, discontinue her Tramadol, and BP control <180. Patient has had her COVID vaccine and her COVID test on admission is: NEGATIVE Allergies Allergy/AdvReac Type Severity Reaction Status Date / Time diphenhydramine Allergy Severe jerking Verified 02/26/21 11:34 leg movements codeine Allergy Intermediate hives Verified 02/26/21 11:34 shellfish derived Allergy Intermediate itchiness Verified 02/26/21 11:34 latex Allergy Mild hives, Verified 02/26/21 11:34 itchiness amoxicillin Allergy Unknown Verified 02/26/21 11:34 ciprofloxacin [From Cipro] Allergy Unknown Verified 02/26/21 11:34 Iodinated Contrast Media Allergy Unknown "intolerant Verified 02/26/21 11:34 " cefazolin [From Ancef] AdvReac Intermediate Verified 02/26/21 11:34 ADHESIVE TAPE Allergy Intermediate skin Uncoded 02/26/21 11:34 redness, painful BERRIES Allergy Intermediate itchiness Uncoded 02/26/21 11:34 Home Medications Medication Instructions Recorded Confirmed Type citalopram 20 mg tablet 20 mg PO DAILY 11/16/19 02/26/21 History lisinopril 20 1 tab PO DAILY 11/16/19 02/26/21 History mg-hydrochlorothiazide 12.5 mg tablet metformin 500 mg tablet 500 mg PO BID 11/16/19 02/26/21 History multivitamin 1 tab PO DAILY 11/16/19 02/26/21 History atorvastatin 20 mg tablet 20 mg PO DAILY 02/26/21 02/26/21 History tramadol 50 mg tablet 50 mg PO DAILY 02/26/21 02/26/21 History Past Med/Surg History Medical History (Updated 02/26/21 @ 16:04 by FABIAN Al) Anxiety Arthritis Breast mass, left 2011 - left milk duct clogged removed by Dr. Rosado CAD (coronary artery disease) mild, non-obstructive per 08/2018 cardiac cath Depression Dyspepsia Fall History of chemotherapy 2009 - R-CHOP x [address] Argueta History of radiation therapy 2010 to right jaw/neck Hyperlipemia per records Hypertension Left ventricular hypertrophy moderate, asymmetric LVH (focal thickening of basal septum with no evidence of LVOT obstruction) per 07/2018 stress echo, subsequent cardiac cath 08/2018 with mild, non-obstructive CAD, followed by Dr. Damien Robb Left wrist injury Lumbar spinal stenosis Non-Hodgkin lymphoma 2010 hx chemo/xrt (several years ago) Tailbone injury Type 2 diabetes mellitus Vasovagal syncope Weakness of both lower extremities Due to neuropathy Surgical History History of cataract surgery 2016 - BOTH EYES History of lumpectomy of left breast 2011 - Milk Duct Removal, 11/10/2019 - with SLN Biopsy History of tubal ligation 1977 Hx of colonoscopy 2017 OR 2019 Hx of parotidectomy RIGHT SIDE 2010 Port-A-Cath in place Removal in 2011 S/P tonsillectomy 1957 Family History Mother , Passed age 82 of sepsis (cancer complications) Breast cancer, Onset Age: 58 Colorectal cancer Hypertension Stroke Daughter Breast cancer, Onset Age: 48 Father , Passed age 88 of natural causes Diabetes Hypertension Daughter Breast cancer, Onset Age: 45 Son , Passed age 27 from suicide No problems noted. Brother No problems noted. Social History Smoking Status: Never smoker Second Hand Exposure: Yes; Do You Dip or Chew Tobacco: No; Tobacco Cessation Education Requested by Patient: No Hx Alcohol Use: No Hx Substance Use: No Preferred Language: Bruneian Communication Ability: Effective Visual Impairment: No Limitations Hearing Ability: Normal Evidence Specialist Required: No Beliefs That Will Affect Care: None marital status: Current Living Situation: Spouse current occupational status: retired current occupation: Retired [employer] Other Information That Helps Us Care for You: No Feels Safe at Home: Yes Safety Concerns: Feels Safe At This Time Childhood Exposure to Second-Hand Smoke: Yes caffeine: Yes (1/2 caf - 3 cup/day) during the past year weight has: remained stable Dental Care, Regularly: Yes Assistive Devices: Walker Review of Systems Review of Systems: REVIEW OF SYSTEMS: Constitutional: No fever, sweats or chills Eyes: No diplopia, no worsening or blurred vision ENT: normal hearing, no trouble swallowing Respiratory: No cough, sputum, dyspnea at rest or on exertion Cardiovascular: No chest pain, tightness or palpitations Abdomen: No pain, nausea, vomiting, diarrhea or constipation Musculoskeletal: No joint pain, calf pain, swelling Neurologic: No weakness, + numbness to mid sole of foot and toe of the left foot, NO balance problems Psychiatric: (+) anxiety or depression Skin: No rash or itch Physical Exam Physical Exam: PHYSICAL EXAM: General: awake, alert, no apparent distress Head: Normocephalic, atraumatic ENT: PERRL, EOMI, no pharyngeal exudate, mucous membranes moist Neuro: AAO x 3, speech clear and appropriate, strength intact bilaterally 5/5, sensation intact and equal all extremities and dermatomes, no pronator drift Chest: equal rise and fall of the chest, no accessory muscle use, no heaves or thrills, Clear to auscultation, on room air, Cardiac: Regular rate and rhythm, telemetry reviewed- NSR, skin warm dry, cap refill <3 seconds, peripheral pulses +2 no JVD, no murmur, no edema GI: NABS x 4 quadrants, soft, nontender to palpation, no rebound, guarding or tenderness : Spontaneously voiding, no pain, no CVA tenderness, Extremities: Normal inspection, no peripheral edema or erythema, calfs nontender to palpation Psych: anxious on exam Skin: no rash or erythema Results & Data Results & Data ([facility]) Vital Signs (Past 12 Hours) Vital Signs Temp Pulse Pulse Resp BP BP Pulse Ox 02/26/21 13:30 93 H 16 99 02/26/21 13:15 101 H 12 100 02/26/21 13:07 103 H 17 99 02/26/21 13:06 102 H 18 195/114 H 100 02/26/21 10:25 36.9 C 98 H 18 173/95 H 97 Laboratory Results Abnormal lab results 02/26/21 02/26/21 02/26/21 Range/Units 11:57 12:00 13:05 BUN/Creatinine Ratio 21.0 H (10-20) Glucose 111 H (70-99) mg/dl POC Glucose 122 H 111 H (70-99) mg/dl Globulin 4.1 H (2.5-4.0) gm/dl Medications Administered Discontinued Medications Citalopram Hydrobromide (Citalopram 20 Mg Tab) 20 mg PO NOW ONE Stop: 02/26/21 14:01 Last Admin: 02/26/21 14:46 Dose: 20 mg Documented by: [id number] Hydrochlorothiazide (Hydrochlorothiazide 25 Mg Tab) 12.5 mg PO NOW ONE Stop: 02/26/21 14:01 Last Admin: 02/26/21 14:47 Dose: 12.5 mg Documented by: [id number] Lisinopril (Lisinopril 20 Mg Tab) 20 mg PO NOW ONE Stop: 02/26/21 14:01 Last Admin: 02/26/21 14:47 Dose: 20 mg Documented by: [id number] Home Medications citalopram 20 mg tablet 20 mg PO DAILY 11/16/19 [History Confirmed 02/26/21] lisinopril 20 mg-hydrochlorothiazide 12.5 mg tablet 1 tab PO DAILY 11/16/19 [History Confirmed 02/26/21] metformin 500 mg tablet 500 mg PO BID 11/16/19 [History Confirmed 02/26/21] multivitamin 1 tab PO DAILY 11/16/19 [History Confirmed 02/26/21] atorvastatin 20 mg tablet 20 mg PO DAILY 02/26/21 [History Confirmed 02/26/21] tramadol 50 mg tablet 50 mg PO DAILY 02/26/21 [History Confirmed 02/26/21] ECG Additional Comments: Sinus rhythm with Premature atrial complexes Low voltage QRS Borderline ECG When compared with ECG of 22-NOV-2019 10:11, Premature atrial complexes are now Present Code Status & VTE Plan Code Status CODE: FULL VTE: SCDs, Heparin 5000 q12 VTE Prophylaxis Plan VTE Prophylaxis will be ordered: Yes Supervising Physician Co-Signing Physician Notes 84 yo female is seen and examined at bedside. During face to face encounter with patient, obtained a history and physical examination. Discussed case with PARAMJIT Green and answered all of the patient's questions. I reviewed above note and agree with it. Will be admitted with stroke like symptoms. Will obtain an MRI. PG Care Time/CCT Total # of Minutes Spent Total Time Spent with Patient: Total time spent is greater than 50% in coordination of care (as documented) at patient's floor/unit and/or counseling patient: Coding Level of Care Code 36706 Initial Inpt Care Lvl 3 Diagnoses Stroke-like symptoms R29.90 Hypertension I10 Type 2 diabetes mellitus E11.9 Weakness of both lower extremities R29.898 Depression F32.9 CAD (coronary artery disease) I25.10 Anxiety F41.9 Malignant neoplasm of central portion of left breast in female, estrogen receptor positive C50.112; Z17.0
[2021-02-26] MEDS ORDERED: LABETALOL HCL IV 5 MG/ML 20ML IV PRN (16:23)
[2021-02-26] MEDS ORDERED: ACETAMINOPHEN 325 MG TAB PO PRN ×2 (16:24→18:33)
[2021-02-26] MEDS ORDERED: LORazepam 0.5 MG TAB ONE (17:22)
[2021-02-26] MEDS ORDERED: DEXTROSE 50% 50 ML SYRINGE IV PRN (18:33)
[2021-02-26] MEDS ORDERED: GLUCAGON FOR INJ 1 MG VIAL SQ PRN (18:33)
[2021-02-26] MEDS ORDERED: CARBOHYDRATES FOR HYPOGLYCEMIA PO PRN (18:33)
[2021-02-26] MEDS ORDERED: GLUCOSE 40% GEL 15 GM TUBE PO PRN (18:33)
[2021-02-26] MEDS ORDERED: GLUCOSE 10 TABS/TUBE PO PRN (18:33)
[2021-02-26] MEDS: INSULIN ASPART 100 UNITS/ML 3 ML PEN SC SCH ×2 (23:11→23:15)
[2021-02-26] MEDS: LIDOCAINE 5% 1 PATCH TD SCH (23:13)
[2021-02-26] MEDS: HEPARIN SOD 5,000 UNIT/0.5 ML VIAL SQ SCH (23:16)
[2021-02-27] MEDS ORDERED: MELATONIN 3 MG TAB PO PRN (00:02)
--- NOTE | 2021-02-27 07:10 | Ultrasound Report ---
BILATERAL CAROTID DOPPLER STUDY HISTORY: Stroke symptoms. evaluate for Carotid disease COMPARISON: None. TECHNIQUE: Real-time, grayscale, and color Doppler sonography of the carotid arteries was performed. Imaging reviewed in the transverse and longitudinal planes. All measurements were calculated based on NASCET criteria. FINDINGS: Antegrade flow is seen in the bilateral vertebral arteries. The brachial pressures were not obtained. Mild calcified plaque within the bilateral carotid bifurcat ions. The peak systolic velocity within the right ICA is 65 cm/s. The right systolic ratio is 0.9. The peak systolic velocity within the left ICA is 48 cm/s. The left systolic ratio is 0.4. IMPRESSION: No hemodynamically significant stenosis seen within the carotid arteries. ACT 112: Negative or not required by law. Electronically signed by: Bandar Gay M.D. 02/27/2021 7:09 AM
[2021-02-27 07:24] LABS: Basophils # (auto) 0.02 K/uL (0-0.2); Basophils % (auto) 0.3 %; Eosinophils # (auto) 0.08 K/uL (0-0.5); Eosinophils % (auto) 1.2 %; Hematocrit (blood only) 41.8 % (37-47); Hemoglobin 13.7 g/dL (12.0-16.0); Immature Granulocytes # (auto) 0.01 K/uL (0.00-0.02); Immature Granulocytes % (auto) 0.2 %; Lymphocytes # (auto) 1.84 K/uL (1.2-3.4); Lymphocytes % (auto) 27.9 %; Mean Corpuscular Hemoglobin 30.2 pg (25-34); Mean Corpuscular Hgb Conc 32.8 g/dL (32-36); Mean Corpuscular Volume 92.3 fL (80-100); Mean Platelet Volume 10.6 fL (7.4-10.4); Monocytes # (auto) 0.54 K/uL (0.11-0.59); Monocytes % (auto) 8.2 %; Neutrophils # (auto) 4.11 K/uL (1.4-6.5); Neutrophils % (auto) 62.2 %; Platelet Count 222 K/uL (130-400); RDW Coefficient of Variation 13.1 % (11.5-14.5); RDW Standard Deviation 44.1 fL (36.4-46.3); Red Blood Count 4.53 M/uL (4.2-5.4)
[2021-02-27] MEDS: HEPARIN SOD 5,000 UNIT/0.5 ML VIAL SQ SCH (07:42)
[2021-02-27] MEDS: LIDOCAINE 5% 1 PATCH TD SCH (07:42)
[2021-02-27] MEDS: INSULIN ASPART 100 UNITS/ML 3 ML PEN SC SCH ×2 (07:48→12:17)
[2021-02-27 07:53] LABS: BUN Creatinine Ratio 20.1 (10-20); Calcium 9.7 mg/dl (8.5-10.1); Creatinine Clr Calc Pharmacy 57.6 ml/min; Est GFR (African American) 85.1 ml/min; Est GFR (Non-African American) 73.4 ml/min; Magnesium 2.3 mg/dl (1.8-2.4); Potassium 3.8 mmol/L (3.5-5.1)
[2021-02-27 08:50] LABS: Estimated Average Glucose 143 mg/dl; Hemoglobin A1C 6.6 % (4.5-5.6)
[2021-02-27] MEDS ORDERED: LISINOPRIL/HCTZ 20/12.5MG 1 TAB TAB PO SCH (09:00)
[2021-02-27] MEDS ORDERED: LIDOCAINE 5% 1 PATCH TD SCH (09:00)
[2021-02-27] MEDS ORDERED: ATORVASTATIN 20 MG TAB PO SCH (09:00)
[2021-02-27] MEDS ORDERED: ASPIRIN 81 MG ECTAB PO SCH (09:00)
[2021-02-27] MEDS ORDERED: PERFLUTREN LIPID MICROSPHERE (DEFINITY) IV ONE (10:25)
[2021-02-27 12:04] VITALS: BP 151/76; PULSE 78; TEMP 97.7; O2SAT 96
--- NOTE | 2021-02-27 12:29 | Electrocardiogram Report ---
Test Reason : Blood Pressure : / mmHG Vent. Rate : 092 BPM Atrial Rate : 092 BPM P-R Int : 146 ms QRS Dur : 070 ms QT Int : 346 ms P-R-T Axes : 039 -02 054 degrees QTc Int : 427 ms Sinus rhythm with Premature atrial complexes Low voltage QRS Borderline ECG When compared with ECG of 22-NOV-2019 10:11, Premature atrial complexes are now Present Confirmed by Magen Booth ([id number]) on 02/27/2021 12:29:27 PM Referred By: REFERRED SELF Confirmed By:Magen Booth
--- NOTE | 2021-02-27 14:57 | XCELERA ---
[id number]
--- NOTE | 2021-02-27 16:22 | Communication Note ---
Date of Service: February 27, 2021 By CMS guidelines, a determination that the admission or continued stay is not medically necessary has been made by a member of the UR committee and a joan sidhu for this hospital stay, therefore a Code 44 will be completed and the Inpatient admission will be changed to outpatient. Mihai French MD Attending Physician
--- NOTE | 2021-02-27 16:24 | Discharge Summary ---
Date of Service date of admission - February 26, 2021 date of discharge - February 27, 2021 Admission HPI Per Admitting Provider 80 YOF with past medical history of HTN, DMII, chronic back pain, right-sided parotid gland tumor s/p resection- non Hodgkin' lymphoma (chemo/radiation 2010), breast cancer (ER+)- grade I. Patient comes to the EMD today brought in by her daughter secondary to confusion and amnesia. The patient reports that starting this morning she just felt "off" and normally talks to her daughter every morning. her daughter states that she was having poor memory this morning in regards to what she was doing or if she took her medications. The patient recalls some events from yesterday including watching the football games, but really can't recall what she did this morning including getting up. She denies that she was having any weakness or coordination issues, but just how to do simple things. In the EMD there was concern for CVA and stroke workup was started. The patient went to CT scan of the head and upon CT of the head the patient became confused and disoriented again, her BP was elevated (170s/90s) upon return and had no other neurological deficits. The telestroke team recommended BP control and symptoms possibly related to her HTN. She was given her home MIL and BP improved as well as symptoms. The hospitalist was notified for admission, MRI and MRA of the carotids pending. Upon evaluation the patient feels she is back to normal but still with some difficulty remembering events from this morning. NIHSS 0 Upon further questioning it was noted that the patient, who has chronic back pain, had a flare up last week while doing house work and was placed on "muscle relaxer" and Tramadol. The patient reports that yesterday she took these more than she took them over the past week because of her back discomfort. Patient will be admitted to continue evaluation of her mentation- MRI brain and MRA carotids as above, discontinue her Tramadol, and BP control <180. Patient has had her COVID vaccine and her COVID test on admission is: NEGATIVE Principal Diagnosis Confusion - suspected toxic encephalopathy from tramadol - resolved. TIA felt unlikely. Discharge Exam Gen - NAD, a/o x 3, speech fluent & clear Neck - no JVD Heart - RRR, s1 s2, no murmur Lungs - CTA b/l Abd - soft NT ND BS+ Ext - no edema, pulses 2+ b/l Neuro - strength 5/5 x 4 exts; no facial droop; speech clear; gait wnl Discharge Data Allergies Allergy/AdvReac Type Severity Reaction Status Date / Time diphenhydramine Allergy Severe jerking Verified 02/26/21 11:34 leg movements codeine Allergy Intermediate hives Verified 02/26/21 11:34 shellfish derived Allergy Intermediate itchiness Verified 02/26/21 11:34 latex Allergy Mild hives, Verified 02/26/21 11:34 itchiness amoxicillin Allergy Unknown Verified 02/26/21 11:34 ciprofloxacin [From Cipro] Allergy Unknown Verified 02/26/21 11:34 Iodinated Contrast Media Allergy Unknown "intolerant Verified 02/26/21 11:34 " cefazolin [From Ancef] AdvReac Intermediate Verified 02/26/21 11:34 ADHESIVE TAPE Allergy Intermediate skin Uncoded 02/26/21 11:34 redness, painful BERRIES Allergy Intermediate itchiness Uncoded 02/26/21 11:34 Procedures Performed Echocardiogram - * EF 65-70% * normal valve function * no intra-atrial shunt seen Ordered Studies Abdomen/Pelvis CT 02/26/21 11:18 CT abd pelvis wo con CLINICAL HISTORY: Back pain into legs TECHNIQUE: Helical axial images of the abdomen and pelvis were obtained. Automated dose lowering techniques and/or adjustment according to patient size were utilized for this exam. This exam was performed without intravenous contrast. COMPARISON: Comparison is made to CT abdomen and pelvis 08/07/2017 FINDINGS: Lower chest: Bibasilar atelectasis is seen. Liver: Unremarkable. No focal lesions are seen. Gallbladder and biliary tree: No calcified gallstones. Normal caliber wall. No intra- or extrahepatic biliary ductal dilation. Pancreas: Unremarkable, no focal lesions. Spleen: Unremarkable. Adrenals: Unremarkable. Kidneys and ureters: Bilateral simple cysts are noted. Bladder: Unremarkable. Reproductive organs: Unremarkable. Bowel: A hiatal hernia is seen. The appendix is normal. Lymph nodes Retroperitoneal: Unremarkable. Mesenteric: Unremarkable. Pelvic: Unremarkable. Peritoneum: Normal Vessels: Atherosclerotic calcifications are seen. Abdominal wall: Unremarkable. Bones: Degenerative changes are seen. In particular, there is grade 1 anterolisthesis of L3-L4 and L4-5 resulting in significant spinal stenosis. IMPRESSION: 1. No acute abnormalities. Please see CT lumbar spine performed same day for detailed findings of degenerative changes in the spine. 2. Multiple renal cysts noted. ACT 112: Negative or not required by law. Electronically signed by: Jeyson Moore M.D. 02/26/2021 1:[address] 02/26/21 11:[address] DOSE: HISTORY: Low back pain TECHNIQUE: Multiaxial CT images of the lumbar spine were performed and reformatted in the sagittal and coronal plane without the use of contrast. A dose lowering technique was utilized adhering to the principles of ALARA. COMPARISON: Lumbar spine MRI 09/06/2016. FINDINGS: There is 4 mm of anterolisthesis of L3 on L4. Mild disc space narrowing throughout the lumbar spine. There are moderate facet degenerative changes from L2 through S1. The visualized sacrum is intact. No fractures within the lumbar spine. No suspicious lytic are blastic osseous lesions. Minimal levoscoliosis which may be positional. Paravertebral soft tissues are unremarkable. Severe central canal narrowing at L2-L3, L3-L4, L4-5. This is similar to the prior MRI. IMPRESSION: 1. No fractures within the lumbar spine. 2. Severe central canal narrowing from L2 through L5 which is similar to the prior MR spine MRI. ACT 112: Negative or not required by law. Electronically signed by: Bandar Gay M.D. 02/26/2021 1:[address] 02/26/21 11:[address] DOSE: 1277.12 mGycm HISTORY: Stroke Like Symptoms TECHNIQUE: Multiaxial CT images of the head were performed without the use of intravenous contrast. Automated exposure control was utilized for this study. A dose lowering technique was utilized adhering to the principles of ALARA. Comparison: None. Findings: The paranasal sinuses and mastoid air cells are clear. The calvarium and skull base are intact. There is no mass, hematoma, midline shift, acute infarct. White matter hypodensity is nonspecific but suggestive of microvascular ischemic change. The ventricles and sulci demonstrate mild age-related involutional changes. Small hypodense foci inferior to the bilateral basal ganglia are consistent with prominent perivascular spaces. Impression: No acute intracranial abnormality. Atrophy and microvascular ischemic changes. ACT 112: Negative or not required by law. Electronically signed by: Bandar Gay M.D. 02/26/2021 1:01 PM Chest X-Ray 02/26/21 13:08 SINGLE VIEW CHEST CLINICAL HISTORY: Generalized weakness. FINDINGS: 2 AP, portable, upright chest radiographs are compared to study dated 01/25/2010. The cardiomediastinal silhouette is unremarkable noting atherosclerotic calcification of the thoracic aorta. Chronic interstitial thickening is similar to previous. The lungs and pleural spaces are clear. No pneumothorax is seen. The skeletal structures are osteopenic. The bony thorax is grossly intact. Degenerative change is noted in the shoulders. IMPRESSION: No active disease in the chest. ACT 112: Negative or not required by law. Electronically signed by: Wesley Saravia M.D. 02/26/2021 1:53 PM Carotid Doppler Study 02/26/21 19:53 BILATERAL CAROTID DOPPLER STUDY HISTORY: Stroke symptoms. evaluate for Carotid disease COMPARISON: None. TECHNIQUE: Real-time, grayscale, and color Doppler sonography of the carotid arteries was performed. Imaging reviewed in the transverse and longitudinal julian sean. All measurements were calculated based on NASCET criteria. FINDINGS: Antegrade flow is seen in the bilateral vertebral arteries. The brachial pressures were not obtained. Mild calcified plaque within the bilateral carotid bifurcations. The peak systolic velocity within the right ICA is 65 cm/s. The right systolic ratio is 0.9. The peak systolic velocity within the left ICA is 48 cm/s. The left systolic ratio is 0.4. IMPRESSION: No hemodynamically significant stenosis seen within the carotid arteries. ACT 112: Negative or not required by law. Electronically signed by: Bandar Gay M.D. 02/27/2021 7:09 AM Hospital Course (1) Toxic encephalopathy: Patient's presenting confusion and transient memory loss were felt 2nd to tramadol use. She reported that she could remember portions of the period of time when she was confused which would argue against transient global amnesia. During that time period she had taken more doses of tramadol than previous. She voiced that she is extremely sensitive to medications. She never had focal neurological symptoms making TIA unlikely. She had no evidence of any infectious process at time of ER presentation. There were no metabolic disturbances to account for her symptoms either. Work-up in including CT head, lumbar spine, abdomen and pelvis were all normal except for the lumbar spine showing spinal stenosis. Carotid duplex study was normal. CXR was normal. COVID testing was negative. U/a did not suggest UTI. Echo showed preserved EF and normal valve function. She declined MRI of the brain. She was asked to stop any tramadol use moving forward. For her back pain I suggested using tylenol up to three times daily. In the unlikely event this was a TIA she will continue on aspirin and statin. (2) Acute confusion: Resolved. A/o x 3 at discharge. See #1 above. (3) Type 2 diabetes mellitus: Controlled. HbA1C 6.6%. Continue metformin. (4) Hypertension: BPs were high and labile throughout the stay. She will continue her lisinopril-HCTZ. It is possible that her back pain is causing some BP spikes. (5) Depression: Continue celexa. (6) CAD (coronary artery disease): h/o minimal nonobstructive CAD based on prior heart cath in 08/2018. Continue aspirin. Continue lipitor. LDL this admission was 113. Consider increase in lipitor to 40mg - defer to outpatient providers for this. (7) Anxiety: Continue celexa. (8) Malignant neoplasm of central portion of left breast in female, estrogen receptor positive: Total Time Total Time Spent Total Time Spent (In Minutes): 25 Discharge Plan Discharge Items Patient Disposition: Home - Self-Care Reason For Visit: CONFUSION Discharge Diagnosis: Confusion - resolved. Either due to recent tramadol use OR possibly a "TIA" (transient ischemic attack). Suspect it was due to tramadol. Activity: Resume your previous activity Driving/Machine Use: Resume 1 day after discharge Non-emergency contact: Primary Care Provider Call non-emergency contact if: you have any medication questions and your symptoms worsen Follow-up/Referrals: Celso Lala MD [Primary Care Provider] - (see Dr Lala within 5-7 days ) Diet: Carb Consistent or DM2 Addtl Attending Provider Instructions: Mrs Manning, You were admitted to the hospital for confusion. A battery of tests did not reveal any infection or signs of a stroke. Your echocardiogram of the heart and your carotid ultrasound were both normal. Your telemetry heart monitoring was normal. CT of the head did not show stroke. I suspect your confusion was due to the tramadol and would recommend not taking it any longer. It is still possible the confusion could have been from a "TIA" (see handout) but this is less likely. TIA stands for transient ischemic attack. It is a neurological symptom or symptoms that comes on and resolves itself within 24 hours of onset. It is not the same thing as a stroke. But, TIA is a risk factor for stroke. To be on safe side - to protect against a future stroke or future TIA - please take baby aspirin 81mg once daily (purchase [id number]). For your back and leg pains - * [id number] tylenol 1000mg three times a day * you can also take [id number] salonpas (pain patches) - use as directed * please also talk with Dr Lala about a steroid course at time of hospital follow-up Follow-up - see separate section Return to [facility] if - * you have recurrent confusion * you have weakness of any limb * you have difficulty swallowing * you have difficulty speaking * you are unable to walk normally or your balance is off * any other concerns It was our pleasure caring for you! Dr French Addtl Medical Physics Teacher Provider Instructions: Risk Factors for Stroke and TIA: You can reduce your chances of stroke or TIA by working with your medical provider to adopt a healthy lifestyle. Some specific ways to lower your chance of stroke are: * If you are a smoker, now is the time to stop smoking cigarettes * If you are diabetic, improve the control of your blood sugars * Avoid excessive amounts of alcohol * Control high blood pressure * Lose weight if you are overweight * Be sure to lead an active lifestyle * Eat a healthy diet low in salt, cholesterol and fat You should know about other risk factors for stroke that you are unable to control. These include: * Age 55 years or older * Male gender * Certain racial groups: , or / * Family History of Stroke, Mini stroke or Heart Attack * Sickle Cell Disease Who to Call and When: Medical Emergencies: Call 911 immediately if you experience any of the following warning signs and symptoms of Stroke: * Sudden numbness or weakness of the face, arm or leg, especially on one side of the body * Sudden confusion, trouble speaking or understanding * Sudden trouble seeing in one or both eyes * Sudden trouble walking, dizziness, loss of balance or coordination * Sudden severe headache with no cause Do not delay calling 911 if you experience any warning signs or symptoms of a stroke. Delay in seeking medical attention may affect what treatments can be given to you. . Pending Studies at Discharge: No Stand-Alone Forms: My [facility] [employer], Smoking Cessation Medications and DC Order Prescriptions: New aspirin 81 mg Tablet,Delayed Release (Dr/Ec) 81 mg PO QAM Qty: 90 RF: 3 acetaminophen [Tylenol Extra Strength] 500 mg tablet 1,000 mg PO TID Qty: 90 RF: 0 Continued multivitamin Tablet 1 tab PO DAILY RF: 0 citalopram 20 mg tablet 20 mg PO DAILY RF: 0 lisinopril-hydrochlorothiazide 20-12.5 mg tablet 1 tab PO DAILY RF: 0 metformin 500 mg tablet 500 mg PO BID RF: 0 atorvastatin 20 mg tablet 20 mg PO DAILY RF: 0 Discontinued tramadol 50 mg tablet 50 mg PO DAILY RF: 0 Discharge Orders: Discharge Order (Routine); Ordered 02/27/21 Ordered By: Mihai Persaud/Other Patient Handouts: What Is a TIA? 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
== END 2021-02-27 17:10 | disposition home or self-care (01) ==
LOC: ED 10:23 → 2W 15:40 → SUATTDRO 15:40 → INTOOBSV 15:40 → 2W 17:40
DX: Z88.1 Allergy status to other antibiotic agents; I10 Essential (primary) hypertension; Z91.041 Radiographic dye allergy status; Z20.822 Contact with and (suspected) exposure to COVID-19; Z91.013 Allergy to seafood; R53.1 Weakness; Z17.0 Estrogen receptor positive status [ER+]; R41.0 Disorientation, unspecified; G89.29 Other chronic pain; C50.112 Malignant neoplasm of central portion of left female breast; E78.5 Hyperlipidemia, unspecified; I25.10 Atherosclerotic heart disease of native coronary artery without angina pectoris; Z91.018 Allergy to other foods; R29.90 Unspecified symptoms and signs involving the nervous system; N28.1 Cyst of kidney, acquired; Z91.040 Latex allergy status; Z88.5 Allergy status to narcotic agent; E11.9 Type 2 diabetes mellitus without complications

== ENCOUNTER 2024-07-28 11:17 | Inpatient (IN) ==
--- NOTE | 2024-07-28 11:42 | Emergency Department Note ---
ED Provider Note History of Present Illness Chief Complaint: Fall Stated Complaint: FALL, R HIP PAIN, R SHOULDER PAIN Time Seen by Provider: 07/28/24 11:20 Source: patient and EMS Mode of arrival: EMS Limitations: no limitations Patient is an 84-year-old female who presents to the emergency department with complaints of right hip and shoulder pain after a fall. Patient states that she was on the second step of her stepladder hanging up Easter decorations when she got her foot caught in the wrong of the stepladder and fell onto her right side. Patient notes that she fell onto her right hip and denies hitting her head, denies any loss of consciousness. Patient reports that she is having pain in her right hip and right upper arm near her shoulder. Patient denies any pain in her right knee or ankle. Patient reports that her pain was a 10/10, then she had fentanyl via EMS en route to the hospital and reports her pain to now be a 4/10. Home Medications Medication Instructions Recorded Confirmed Type metformin 500 mg tablet 500 mg PO BID #180 tabs 07/18/23 07/28/24 Rx blood sugar diagnostic (OneTouch #100 strips 12/03/23 05/13/24 Rx Verio test strips) citalopram 20 mg tablet 20 mg PO DAILY #90 tabs 02/17/24 07/28/24 Rx lisinopril 20 1 tab PO DAILY #90 tabs 02/17/24 07/28/24 Rx mg-hydrochlorothiazide 12.5 mg tablet calcium carbonate 500 mg PO DAILY 07/28/24 07/28/24 History cholecalciferol (vitamin D3) 25 25 mcg PO DAILY 07/28/24 07/28/24 History mcg (1,000 unit) tablet (Vitamin D3) cyanocobalamin (vitamin B-12) 1,000 mcg PO DAILY 07/28/24 07/28/24 History 1,000 mcg tablet (Vitamin B-12) magnesium 200 mg tablet 200 mg PO DAILY 07/28/24 07/28/24 History zinc acetate 25 mg (zinc) capsule 25 mg PO DAILY 07/28/24 07/28/24 History Allergies Allergy/AdvReac Type Severity Reaction Status Date / Time diphenhydramine Allergy Severe jerking Unverified 07/28/24 14:14 leg movements adhesive tape Allergy Intermediate Pain on Unverified 07/28/24 13:30 skin, also redness. codeine Allergy Intermediate hives Verified 07/28/24 13:30 shellfish derived Allergy Intermediate itchiness Verified 07/28/24 13:30 strawberry Allergy Intermediate ALL Unverified 07/28/24 13:30 Berries - Cause body itchiness latex Allergy Mild hives, Verified 07/28/24 13:30 itchiness amoxicillin Allergy Unknown Unknown Verified 07/28/24 14:14 ciprofloxacin [From Cipro] Allergy Unknown Unknown Verified 07/28/24 14:14 Iodinated Contrast Media Allergy Unknown "intolerant Verified 07/28/24 13:30 " cefazolin [From Ancef] AdvReac Intermediate Unknown Verified 07/28/24 14:14 Past Med/Surg History Problem List (Updated 07/28/24 @ 16:27 by FABIAN Dumont) Closed fracture of proximal end of femur (Acute) Fracture of right hip (Acute) Intertrochanteric fracture of left hip (07/28/24) acute minimally displaced intertrochanteric fracture proximal right femur. Per the ED report-patient fell off 3 foot step ladder while she was putting up [employer] decor[employer]. Torus palatinus Neck swelling Enlarged lymph node in neck Vitamin D deficiency Family history of skin cancer Osteopenia Multiple fractures of ribs (Acute 08/26/23) Distal radius fracture, right (Acute ~08/26/23) COVID-19 (Acute) Anxiety and depression Hypertension GERD (gastroesophageal reflux disease) Hyperlipemia Type 2 diabetes mellitus Medical History Toxic encephalopathy Encephalopathy, hypertensive Stroke-like symptoms Malignant neoplasm of central portion of left breast in female, estrogen receptor positive (11/10/19) History of chemotherapy 2009 - R-CHOP x [address] Argueta History of radiation therapy 2010 to right jaw/neck Vasovagal syncope Weakness of both lower extremities Due to neuropathy Breast mass, left 2011 - left milk duct clogged removed by Dr. Rosado Left ventricular hypertrophy moderate, asymmetric LVH (focal thickening of basal septum with no evidence of LVOT obstruction) per 07/2018 stress echo, subsequent cardiac cath 08/2018 with mild, non-obstructive CAD, followed by Dr. Damien oRbb CAD (coronary artery disease) mild, non-obstructive per 08/2018 cardiac cath Depression Arthritis Non-Hodgkin lymphoma 2010 hx chemo/xrt (several years ago) Lumbar spinal stenosis Anxiety Hypertension Left wrist injury Surgical History Port-A-Cath in place Removal in 2011 History of lumpectomy of left breast 2011 - Milk Duct Removal, 11/10/2019 - with SLN Biopsy History of cataract surgery 2016 - BOTH EYES Hx of colonoscopy 2017 OR 2018 Hx of parotidectomy RIGHT SIDE 2009 S/P tonsillectomy 1957 History of tubal ligation 1977 Family History Mother , Passed age 82 of sepsis (cancer complications) Breast cancer, Onset Age: 58 Colorectal cancer Hypertension Stroke Skin cancer Daughter Breast cancer, Onset Age: 48 Father , Passed age 88 of natural causes Diabetes Hypertension Emphysema of lung Skin cancer Daughter Breast cancer, Onset Age: 45 Son , Passed age 27 from suicide No problems noted. Brother No problems noted. Social History Smoking Status: Never smoker Second Hand Exposure: No; Do You Dip or Chew Tobacco: No; Hx Alcohol Use: No Hx Substance Use: No Preferred Language: Tajik Communication Ability: Effective Visual Impairment: No Limitations Hearing Ability: Normal Data Recovery Planner Required: No Beliefs That Will Affect Care: None marital status: Current Living Situation: Spouse current occupational status: retired current occupation: Retired [employer] How many Children do You have: 3 Feels Safe at Home: Yes Childhood Exposure to Second-Hand Smoke: Yes Diet: regular caffeine: Yes (1/2 caf - 3 cup/day) during the past year weight has: remained stable Dental Care, Regularly: Yes Physical Activity Frequency: Daily Seatbelt Use: always Sunscreen Use: No Assistive Devices: Glasses Physical Exam Vital Signs Vital Signs - 24 hr 07/28/24 11:36 07/28/24 11:36 07/28/24 11:42 Temperature 36.5 C 36.5 C Temperature Source Oral Oral Pulse Rate 77 79 Pulse Rate [Apical] 77 Pulse Rate from SpO2 Sensor Pulse Rhythm Regular Pulse Rhythm [Apical] Regular Pulse Strength Normal Pulse Strength [Apical] Normal Respiratory Rate 18 18 Respiratory Effort / Characteristics Non-Labored Spontaneous Non-Labored Spontaneous Respiratory Depth Normal Normal Respiratory Pattern Regular Regular Blood Pressure 151/78 H Blood Pressure [Left Arm] 151/78 H Blood Pressure Mean 102 Blood Pressure Mean [Left Arm] 102 Blood Pressure Position Semi-fowlers Blood Pressure Position [Left Arm] Semi-fowlers Pulse Oximetry 100 100 Oxygen Delivery Method Room Air Room Air Sepsis Recent Fever Within 48 Hours No Sepsis New/Unexplained Change in Mental Status No Sepsis Action Taken by Nursing No Action Required 07/28/24 12:33 07/28/24 14:00 07/28/24 14:01 Temperature Temperature Source Pulse Rate 75 Pulse Rate [Apical] 76 Pulse Rate from SpO2 Sensor 74 Pulse Rhythm Pulse Rhythm [Apical] Regular Pulse Strength Pulse Strength [Apical] Normal Respiratory Rate 18 18 Respiratory Effort / Characteristics Non-Labored Spontaneous Respiratory Depth Normal Respiratory Pattern Regular Blood Pressure 151/75 H 134/68 Blood Pressure [Left Arm] 134/68 Blood Pressure Mean 100 90 Blood Pressure Mean [Left Arm] 90 Blood Pressure Position Blood Pressure Position [Left Arm] Semi-fowlers Pulse Oximetry 100 100 Oxygen Delivery Method Room Air Room Air Sepsis Recent Fever Within 48 Hours Sepsis New/Unexplained Change in Mental Status Sepsis Action Taken by Nursing 07/28/24 14:03 07/28/24 14:51 07/28/24 15:00 Temperature Temperature Source Pulse Rate 76 79 Pulse Rate [Apical] 86 Pulse Rate from SpO2 Sensor 76 80 Pulse Rhythm Pulse Rhythm [Apical] Pulse Strength Pulse Strength [Apical] Respiratory Rate 14 18 18 Respiratory Effort / Characteristics Respiratory Depth Respiratory Pattern Blood Pressure Blood Pressure [Left Arm] 148/73 H Blood Pressure Mean Blood Pressure Mean [Left Arm] 98 Blood Pressure Position Blood Pressure Position [Left Arm] Pulse Oximetry 99 93 96 Oxygen Delivery Method Room Air Room Air Room Air Sepsis Recent Fever Within 48 Hours Sepsis New/Unexplained Change in Mental Status Sepsis Action Taken by Nursing 07/28/24 15:22 07/28/24 16:35 Temperature 36.8 C Temperature Source Oral Pulse Rate 82 Pulse Rate [Apical] 84 Pulse Rate from SpO2 Sensor Pulse Rhythm Pulse Rhythm [Apical] Regular Pulse Strength Pulse Strength [Apical] Normal Respiratory Rate 17 Respiratory Effort / Characteristics Non-Labored Spontaneous Respiratory Depth Normal Respiratory Pattern Regular Blood Pressure Blood Pressure [Left Arm] 138/67 Blood Pressure Mean Blood Pressure Mean [Left Arm] 90 Blood Pressure Position Blood Pressure Position [Left Arm] Lying Pulse Oximetry 96 Oxygen Delivery Method Room Air Sepsis Recent Fever Within 48 Hours Sepsis New/Unexplained Change in Mental Status Sepsis Action Taken by Nursing VITAL SIGNS - Vital signs and nursing notes were reviewed. GENERAL -84-year-old female appearing their stated age, who is in no acute distress. Communicates well with provider and answers questions appropriately. Patient arrives to the ER via EMS. HEAD - Normocephalic, Atraumatic. No Koo's Sign or Raccoon's Eyes. No depressed skull fractures palpable. EYES - PERRL with EOMI bilaterally. Sclera anicteric. Conjunctiva pink and moist with no injection noted. NECK - Neck with FROM. Supple to palpation. No lymphadenopathy noted. LUNGS - Chest wall symmetric without accessory muscle use, intercostals retractions, or central cyanosis. Normal vesicular breath sounds CTA B/L. No wheezes, rales, or rhonchi appreciated. CARDIAC - RRR with S1/S2. No murmur, rubs, or gallops appreciated. EXTREMITIES -patient notes significant pain in her right hip. Patient has some mild rotation of her right leg. Patient has limited range of motion of her right leg due to her pain. Patient also has some limited active range of motion in her right shoulder due to her discomfort in her right upper arm. Patient denies any numbness or tingling. Pulses are palpable in all extremities. No edema noted in any extremity. NEUROLOGIC -Sensory intact to light touch throughout. PSYCH - A&Ox3 and cooperates fully with examiner. Pt is very pleasant and interacts well with examiner Course Administered Medications Discontinued Medications Fentanyl Citrate (Fentanyl Citrate Pf 100 Mcg/2 Ml Vial) 25 mcg IV NOW STA Stop: 07/28/24 12:15 Last Admin: 07/28/24 12:23 Dose: 25 mcg Documented By: Morphine Sulfate (Morphine Sulfate 4 Mg/Ml 1 Ml Carp\\Vial) 4 mg IV NOW STA Stop: 07/28/24 13:47 Last Admin: 07/28/24 13:55 Dose: 4 mg Documented By: Ondansetron HCl (Ondansetron Inj 2 Mg/Ml 2 Ml Vial) 4 mg IV NOW STA Stop: 07/28/24 13:47 Last Admin: 07/28/24 13:55 Dose: 4 mg Documented By: Medical Decision Making Differential Diagnosis Hip fracture, dislocation, humeral fracture, contusion, muscular strain, sprain, among others. Medical Records Attestation: I reviewed the patient's medical records. Home Medications was personally reviewed by me Laboratory Data Attestation: I reviewed the patient's lab results. 07/28/24 11:30 07/28/24 14:00 Lab Results 07/28/24 07/28/24 07/28/24 Range/Units 11:30 14:00 15:52 WBC 11.60 H (4.8-10.8) K/ul RBC 4.22 (4.20-5.40) M/uL Hgb 12.5 (12.0-16.0) g/dl Hct 38.2 (37.0-47.0) % MCV 90.5 (80.0-100.0) fL MCH 29.6 (25.0-34.0) pg MCHC 32.7 (32.0-36.0) g/dL RDW Std Deviation 43.8 (36.4-46.3) fL RDW Coeff of Brenda 13.2 (11.5-14.5) % Plt Count 234 (130-400) K/uL MPV 10.5 (9.4-12.4) fL Immature Gran % (Auto) 0.6 % Neut % (Auto) 57.8 % Lymph % (Auto) 33.7 % Kitt[place] % (Auto) 6.3 % Eos % (Auto) 1.2 % Baso % (Auto) 0.4 % Neut # (Auto) 6.70 H (1.40-6.50) K/uL Lymph # (Auto) 3.91 H (1.20-3.40) K/uL Kittson # (Auto) 0.73 H (0.11-0.59) K/uL Eos # (Auto) 0.14 (0.00-0.50) K/uL Baso # (Auto) 0.05 (0.00-0.20) K/uL Immature Gran # (Auto) 0.07 (0.01-0.20) K/uL Sodium 138 (136-145) mmol/L Potassium TNP 4.1 Chloride 103 (98-107) mmol/L Carbon Dioxide 27 (21-32) mmol/L Anion Gap 8 (3-11) BUN 24 H (6-23) mg/dl Creatinine 0.81 (0.6-1.2) mg/dl Est Cr Clr Drug Dosing 54.0 ml/min eGFR 71.98 BUN/Creatinine Ratio 29.6 H (10-20) Glucose 130 H (70-99(Fasting)) mg/dl Calcium 9.1 (8.6-10.3) mg/dl Total Bilirubin 0.5 (0.2-1.0) mg/dl AST TNP 22 ALT 18 (7-52) U/L Alkaline Phosphatase 57 (34-104) U/L Total Protein 6.6 (6.0-8.3) gm/dl Albumin 4.0 (3.4-5.0) gm/dl Globulin 2.6 (2.5-4.0) gm/dl Albumin/Globulin Ratio 1.5 (0.9-2) Urine Color Yellow Urine Appearance Clear (Clear) Urine pH 7.0 (4.5-7.5) Ur Specific Johnston 1.018 (1.000-1.030) Urine Protein Negative (Negative) Urine Glucose (UA) Negative (Negative) Urine Ketones Trace H (Negative) Urine Blood Negative (Negative) Urine Nitrite Negative (Negative) Urine Bilirubin Negative (Negative) Urine Urobilinogen Negative (Negative) Ur Leukocyte Esterase Negative (Negative) Imaging Data Radiologist's Impression: Hip/Pelvis X-Ray 07/28/24 11:28 XR hip RT 2V w pelvis CLINICAL HISTORY: fall, pain COMPARISON: 04/12/2024 FINDINGS: There is an acute minimally displaced intertrochanteric fracture proximal right femur. No other fracture or dislocation seen. IMPRESSION: Acute fracture proximal right femur. ACT 112: Negative or not required by law. Electronically signed by: Teja Ashford M.D. 07/28/2024 1:25 PM Humerus X-Ray 07/28/24 11:28 XR humerus RT 2V, XR shoulder RT min 2V routine CLINICAL HISTORY: fall, pain COMPARISON: None FINDINGS: There are mild degenerative changes at the right shoulder and right elbow. No acute fracture or dislocation seen at the right shoulder or right humerus. IMPRESSION: No fracture seen. ACT 112: Negative or not required by law. Electronically signed by: Teja Ashford M.D. 07/28/2024 1:27 PM Shoulder X-Ray 07/28/24 11:28 XR humerus RT 2V, XR shoulder RT min 2V routine CLINICAL HISTORY: fall, pain COMPARISON: None FINDINGS: There are mild degenerative changes at the right shoulder and right elbow. No acute fracture or dislocation seen at the right shoulder or right humerus. IMPRESSION: No fracture seen. ACT 112: Negative or not required by law. Electronically signed by: Teja Ashford M.D. 07/28/2024 1:27 PM Chest X-Ray 07/28/24 13:06 XR chest 1V not portable CLINICAL HISTORY: FX COMPARISON STUDY: 10/31/2022 FINDINGS: Heart size and pulmonary vasculature are normal. No effusion, consolidation, or pneumothorax. IMPRESSION: No acute findings. ACT 112: Negative or not required by law. Electronically signed by: Teja Ashford M.D. 07/28/2024 1:28 PM Femur X-Ray 07/28/24 13:54 XR femur RT 2V routine CLINICAL HISTORY: femur fracture COMPARISON: X-rays earlier today FINDINGS: The minimally displaced intertrochanteric fracture proximal right femur has stable alignment. No other fractures seen at the right femur. IMPRESSION: Stable alignment. ACT 112: Negative or not required by law. Electronically signed by: Teja Ashford M.D. 07/28/2024 2:42 PM MDM Narrative Patient is an 84-year-old female who presents to the emergency department with complaints of right hip and shoulder pain after a fall. Patient states that she was on the second step of her stepladder hanging up Easter decorations when she got her foot caught in the wrong of the stepladder and fell onto her right side. Patient notes that she fell onto her right hip and denies hitting her head, denies any loss of consciousness. Patient also denies any blood thinner use. Patient reports that she is having pain in her right hip and right upper arm near her shoulder. Patient denies any pain in her right knee or ankle. Patient reports that her pain was a 10/10, then she had fentanyl via EMS en route to the hospital and reports her pain to now be a 4/10. Patient was evaluated by myself and findings are noted in the physical exam above. Patient was ordered IV placement, lab work, x-rays of her right hip, pelvis, right humerus, and right shoulder. Patient was ordered a subsequent dose of fentanyl 25 mg for her discomfort. Patient's lab work resulted and was relatively unremarkable with an elevated white blood cell count of 11.60. Patient had no indication of anemia with a hemoglobin of 12.5 and hematocrit of 38.2. Patient had no electrolyte imbalance. Patient had an x-ray of the hip and pelvis completed and interpreted by radiology to show an acute minimally displaced intertrochanteric fracture of the proximal right femur. No other fracture or dislocation was noted on that x-ray. Patient had a humerus x-ray completed on her right humerus which was interpreted by radiology and showed no fracture. Patient also had a shoulder x-ray that was completed and interpreted by radiology to show some mild degenerative changes however there were no acute fracture or dislocation seen. I discussed all these findings with the patient and the patient verbalized understanding. I discussed with the patient and her family at bedside that she would need to be admitted to the hospital and orthopedics would see her and likely need to surgically repair this injury either today or tomorrow. Patient verbalized understanding and was agreeable to the plan. Patient notes that she still having a good amount of pain and rated her pain at an 8 out of 10 at this point. Patient was ordered a dose of morphine and Zofran for her discomfort and to help avoid any nausea with morphine administration. I reached out to orthopedics and spoke with Dr. Proctor about this patient and discussed with him that my plan was to admit this patient under the medical service due to her age, pain control and other health complications but wanted to consult Ortho. Dr. Proctor verbalized understanding and was agreeable that the patient should be admitted under the medical service but he would come down to the emergency department to see the patient. I then reached out to the [facility] and spoke with Dr. Ibarra and gave her a full report on the patient's chief complaint, current status, and results of her imaging and lab work. I discussed with Dr. Ibarra that I spoke with Dr. Proctor and he was agreeable to see the patient here but wanted the patient to be admitted to the medicine service. Dr. Ibarra was agreeable to admit the patient under her service. Please refer to [facility]'s documentation for further evaluation and management of this patient. Impression Fracture of right hip, Closed fracture of proximal end of femur Discharge Plan Visit Data Chief Complaint: Fall Stated Complaint: FALL, R HIP PAIN, R SHOULDER PAIN ED Provider: Nabila Hammer ED Midlevel Provider: Kaylan Monterroso Discharge Problem: Fracture of right hip, Closed fracture of proximal end of femur Patient Disposition: Admitted As Inpatient Discharge Instructions Interventions: ED Discharge Assessment Last Done: 07/28/24 16:47 Discharge Problem: Fracture of right hip Qualifiers: Encounter type: initial encounter Fracture type: closed Qualified Code(s): S 72.001A - Fracture of unspecified part of neck of right femur, initial encounter for closed fracture
[2024-07-28 11:56] LABS: Basophils # (auto) 0.05 K/uL (0.00-0.20); Basophils % (auto) 0.4 %; Eosinophils # (auto) 0.14 K/uL (0.00-0.50); Eosinophils % (auto) 1.2 %; Hematocrit (blood only) 38.2 % (37.0-47.0); Hemoglobin 12.5 g/dl (12.0-16.0); Immature Granulocytes # (auto) 0.07 K/uL (0.01-0.20); Immature Granulocytes % (auto) 0.6 %; Lymphocytes # (auto) 3.91 K/uL (1.20-3.40); Lymphocytes % (auto) 33.7 %; Mean Corpuscular Hemoglobin 29.6 pg (25.0-34.0); Mean Corpuscular Hgb Conc 32.7 g/dL (32.0-36.0); Mean Corpuscular Volume 90.5 fL (80.0-100.0); Mean Platelet Volume 10.5 fL (9.4-12.4); Monocytes # (auto) 0.73 K/uL (0.11-0.59); Monocytes % (auto) 6.3 %; Neutrophils % (auto) 57.8 %; Platelet Count 234 K/uL (130-400); RDW Coefficient of Variation 13.2 % (11.5-14.5); RDW Standard Deviation 43.8 fL (36.4-46.3); Red Blood Count 4.22 M/uL (4.20-5.40)
[2024-07-28 12:19] LABS: Alanine Aminotransferase 18 U/L (7-52); Albumin Globulin Ratio 1.5 (0.9-2); Alkaline Phosphatase 57 U/L (34-104); Anion Gap 8 (3-11); BUN Creatinine Ratio 29.6 (10-20); Bilirubin,Total 0.5 mg/dl (0.2-1.0); Blood Urea Nitrogen 24 mg/dl (6-23); Calcium 9.1 mg/dl (8.6-10.3); Carbon Dioxide 27 mmol/L (21-32); Chloride 103 mmol/L (98-107); Globulin 2.6 gm/dl (2.5-4.0); Glucose 130 mg/dl (70-99(Fasting)); Sodium 138 mmol/L (136-145); Total Protein 6.6 gm/dl (6.0-8.3)
[2024-07-28] MEDS: fentaNYL citrate PF 100 MCG/2 ML VIAL IV STA (12:23)
--- NOTE | 2024-07-28 13:26 | XRay Report ---
XR hip RT 2V w pelvis CLINICAL HISTORY: fall, pain COMPARISON: 04/12/2024 FINDINGS: There is an acute minimally displaced intertrochanteric fracture proximal right femur. No other fracture or dislocation seen. IMPRESSION: Acute fracture proximal right femur. ACT 112: Negative or not required by law. Electronically signed by: Teja Ashford M.D. 07/28/2024 1:25 PM
--- NOTE | 2024-07-28 13:29 | XRay Report ---
XR humerus RT 2V, XR shoulder RT min 2V routine CLINICAL HISTORY: fall, pain COMPARISON: None FINDINGS: There are mild degenerative changes at the right shoulder and right elbow. No acute fractu re or dislocation seen at the right shoulder or right humerus. IMPRESSION: No fracture seen. ACT 112: Negative or not required by law. Electronically signed by: Teja Ashford M.D. 07/28/2024 1:27 PM
--- NOTE | 2024-07-28 13:30 | XRay Report ---
XR chest 1V not portable CLINICAL HISTORY: FX COMPARISON STUDY: 10/31/2022 FINDINGS: Heart size and pulmonary vasculature are normal. No effusion, consolidation, or pneumothora x. IMPRESSION: No acute findings. ACT 112: Negative or not required by law. Electronically signed by: Teja Ashford M.D. 07/28/2024 1:28 PM
--- NOTE | 2024-07-28 13:38 | Emergency Department Note ---
ED Visit Note I was consulted by the Advanced Practice Provider, FABIAN Braden. I performed a substantive portion of the visit. This includes aspects of: History: Patient is AN 84-year-old female presenting with right hip pain and right shoulder pain after a fall. Patient reports she was putting up Easter decorations on a 3 foot step ladder when she lost her balance and fell. She denies striking her head. Reports immediate pain and deformity to the right hip. Denies any anticoagulation use. MDM: X-ray imaging showed a proximal right femur fracture. Patient was given 25 mcg IV fentanyl on arrival. Preoperative laboratory workup ordered. Orthopedics will be consulted and patient admitted to the medicine service. .
[2024-07-28] MEDS: MoRPHine SULFATE 4 MG/ML 1 ML CARP\\VIAL IV STA (13:55)
[2024-07-28] MEDS: ONDANSETRON INJ 2 MG/ML 2 ML VIAL IV STA (13:55)
[2024-07-28 14:30] LABS: Potassium 4.1 mmol/L (3.5-5.1)
--- NOTE | 2024-07-28 14:30 | Orthopedic Consultation ---
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 She is joined in the emergency department by her daughter. I had a long discussion with the patient and her daughter regarding the nature of this injury. We discussed in great detail the pathoanatomy, pathophysiology, treatment options. I impressed upon them that hip fractures oftentimes represent a "harbinger worse things to come", and very commonly occur in frail elderly patients nearing the end of their lives. I also discussed with him that following a hip fracture, patients often times lose 1 degree of mobility such that patients who ordinarily ambulate without assistive devices requiring assistive device or if they are ambulate with an assistive device at baseline, often times following surgery do not do much more than stand pivot transfer. They expressed understanding to all of the above. Specifically, with regards to this patient's hip fracture, she has a ba sicervical femoral neck fracture for which my recommendation is for operative intervention to include open versus closed reduction and cephalomedullary nailing. I expressed to them the risk of the surgery include but are not limited to loss of life/limb, DVT, incomplete relief of pain, need for additional surgery, nonunion, malunion, hardware complication, hardware failure, hardware irritation. I discussed with them the alternatives to surgery which would be for nonoperative management. Nonoperative management carries with it decrease risk of infection, however I believe has much higher risk of complications of immobilization as patients with nonoperatively treated hip fractures often times do not mobilize for up to 6 weeks. Complications of immobilization include but are not limited to DVT, decubitus ulcers, pneumonia. The benefits of surgical management would include pain control and earlier ambulation to help decrease risks of immobilization. All of the patient and her daughter's questions were answered to their satisfaction. Through shared decision making model into Jalen discussion of the risk, benefits, alternatives to surgical management, they have elected to proceed with operative management. We will plan to proceed to the operating room pending medical clearance and appropriate p.o. status. Please keep n.p.o. for now Surgical plan: Right hip closed versus open reduction and internal fixation with cephalomedullary nail History of Present Illness Reason for Consultation: right hip fracture History of Present Illness Carmen is an 84-year-old female who presents to the emergency department with complaints of right hip pain after a fall. Patient states that she was on the second step of her stepladder hanging up Easter decorations when she got her foot caught in a rung of the stepladder and fell onto her right side. Patient notes that she fell onto her right hip and denies hitting her head, denies any loss of consciousness. Patient reports that she is having pain in her right hip and had mild pain in her right upper arm near her shoulder. Patient denies any pain in any other location. At baseline, the patient ambulates without assistive devices Last PO: Potatoes just before 9 AM PMH: T2DM, Breast cancer, lymphoma, CAD, HTN. Allergies Allergy/AdvReac Type Severity Reaction Status Date / Time diphenhydramine Allergy Severe jerking Unverified 07/28/24 14:14 leg movements adhesive tape Allergy Intermediate Pain on Unverified 07/28/24 13:30 skin, also redness. codeine Allergy Intermediate hives Verified 07/28/24 13:30 shellfish derived Allergy Intermediate itchiness Verified 07/28/24 13:30 strawberry Allergy Intermediate ALL Unverified 07/28/24 13:30 Berries - Cause body itchiness latex Allergy Mild hives, Verified 07/28/24 13:30 itchiness amoxicillin Allergy Unknown Unknown Verified 07/28/24 14:14 ciprofloxacin [From Cipro] Allergy Unknown Unknown Verified 07/28/24 14:14 Iodinated Contrast Media Allergy Unknown "intolerant Verified 07/28/24 13:30 " cefazolin [From Ancef] AdvReac Intermediate Unknown Verified 07/28/24 14:14 Home Medications Medication Instructions Recorded Confirmed Type metformin 500 mg tablet 500 mg PO BID #180 tabs 07/18/23 07/28/24 Rx blood sugar diagnostic (OneTouch #100 strips 12/03/23 05/13/24 Rx Verio test strips) citalopram 20 mg tablet 20 mg PO DAILY #90 tabs 02/17/24 07/28/24 Rx lisinopril 20 1 tab PO DAILY #90 tabs 02/17/24 07/28/24 Rx mg-hydrochlorothiazide 12.5 mg tablet calcium carbonate 500 mg PO DAILY 07/28/24 07/28/24 History cholecalciferol (vitamin D3) 25 25 mcg PO DAILY 07/28/24 07/28/24 History mcg (1,000 unit) tablet (Vitamin D3) cyanocobalamin (vitamin B-12) 1,000 mcg PO DAILY 07/28/24 07/28/24 History 1,000 mcg tablet (Vitamin B-12) magnesium 200 mg tablet 200 mg PO DAILY 07/28/24 07/28/24 History zinc acetate 25 mg (zinc) capsule 25 mg PO DAILY 07/28/24 07/28/24 History Patient History Medical History Toxic encephalopathy Encephalopathy, hypertensive Stroke-like symptoms Malignant neoplasm of central portion of left breast in female, estrogen receptor positive (11/10/19) History of chemotherapy 2009 - R-CHOP x [address] Argueta History of radiation therapy 2010 to right jaw/neck Vasovagal syncope Weakness of both lower extremities Due to neuropathy Breast mass, left 2011 - left milk duct clogged removed by Dr. Rosado Left ventricular hypertrophy moderate, asymmetric LVH (focal thickening of basal septum with no evidence of LVOT obstruction) per 07/2018 stress echo, subsequent cardiac cath 08/2018 with mild, non-obstructive CAD, followed by Dr. Damien Robb CAD (coronary artery disease) mild, non-obstructive per 08/2018 cardiac cath Depression Arthritis Non-Hodgkin lymphoma 2009 hx chemo/xrt (several years ago) Lumbar spinal stenosis Anxiety Hypertension Left wrist injury Surgical History Port-A-Cath in place Removal in 2011 History of lumpectomy of left breast 2011 - Milk Duct Removal, 11/10/2019 - with SLN Biopsy History of cataract surgery 2016 - BOTH EYES Hx of colonoscopy 2017 OR 2019 Hx of parotidectomy RIGHT SIDE 2010 S/P tonsillectomy 1957 History of tubal ligation 1977 Family History Mother , Passed age 82 of sepsis (cancer complications) Breast cancer, Onset Age: 58 Colorectal cancer Hypertension Stroke Skin cancer Daughter Breast cancer, Onset Age: 48 Father , Passed age 88 of natural causes Diabetes Hypertension Emphysema of lung Skin cancer Daughter Breast cancer, Onset Age: 45 Son , Passed age 27 from suicide No problems noted. Brother No problems noted. 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 Pain with logroll and heel strike. Sensation intact to light touch L2-S1. EHL/FHL/GSC/TA motor intact. +2 DP/PT pulse Results & Data Vital Signs (Past 12 Hours) Vital Signs Temp Pulse Pulse Resp BP BP Pulse Ox 07/28/24 14:01 76 18 134/68 100 07/28/24 12:33 75 18 151/75 H 100 07/28/24 11:42 79 07/28/24 11:36 36.5 C 77 18 151/78 H 100 07/28/24 11:36 36.5 C 77 18 151/78 H 100 O2 Del Method 07/28/24 14:01 Room Air 07/28/24 12:33 Room Air 07/28/24 11:42 07/28/24 11:36 Room Air 07/28/24 11:36 Room Air Diagnostic Findings X-rays of the right hip, pelvis, right femur, right shoulder were personally interpreted and reviewed. These demonstrate a basicervical right femoral neck fracture without additional acute osseous abnormalities. (7) Type 2 diabetes mellitus Diabetes mellitus complication status: without complication Diabetes mellitus terminal manager insulin use: without fdc use Qualified Code(s): E11.9 - Type 2 diabetes mellitus without complications
--- NOTE | 2024-07-28 14:43 | XRay Report ---
XR femur RT 2V routine CLINICAL HISTORY: femur fracture COMPARISON: X-rays earlier today FINDINGS: The minimally displaced intertrochanteric fracture proximal right femur has stable alignme nt. No other fractures seen at the right femur. IMPRESSION: Stable alignment. ACT 112: Negative or not required by law. Electronically signed by: Teja Ashford M.D. 07/28/2024 2:42 PM
--- NOTE | 2024-07-28 15:24 | History & Physical Report ---
<Statement entered by Rachel Ibarra MD - 07/28/24 16:25> I have reviewed vital signs, chart notes, labs and imaging. I have personally seen, evaluated and examined the patient. I have also discussed the management of the patient with the [facility] and I agree with the exam findings documented in the history and physical examination and the documented assessment and plan unless otherwise stated below. Carmen is quite healthy and independence, and a mechanical fall off of a stepladder of about 2-1/2 feet and sustained right hip fracture. She is currently comfortable when lying still after IV opioid. She has type 2 diabetes controlled with metformin and diet is not on insulin. Chart mentions a history of coronary disease however she denies any cardiac problems. She typically goes up and down her basement stairs all the time for cooking, she states she could go up 2 flights of stairs without any excessive dyspnea or any chest pain. She has no evidence of heart failure on her physical exam. She has no pulmonary problems. I personally reviewed the EKG tracing which is unremarkable. My physical exam is remarkable only for her right lower extremity which is foreshortened and externally rotated, her foot is cool however her DP pulse is intact. There are no medical contraindications to proceeding with surgery as planned for her right hip fracture, she is at standard risk for her age. Date of Service July 28, 2024 Assessment & Plan (1) Fracture of right hip: (2) Hypertension: (3) Type 2 diabetes mellitus: Plan Carmen is a 83-year-old female with a past medical history of anxiety/depression, hypertension, type 2 diabetes, CAD, GERD, and non-Hodgkin's lymphoma s/p chemotherapy in 2009. Presents after mechanical fall resulting in right hip fracture. Admitted for OR repair with Dr. Proctor #Right hip fracture | Fall Mechanical fall, no head strike, no LOC, no thinners. No chest pain or associated shortness of breath. EKG without ST elevation. Chest x-ray without acute findings. Patient medically optimized for surgery Check UA Check vitamin D level a.m., continue home supplementation pain control: scheduled tylenol, prn oxycodone, prn morphine PT/OT #Hypertension Lisinoprilhydrochlorothiazide held on admission, resume a.m. pending labs #Diabetes A1c 6.4 04/2024, Home regimen: metformin 500 mg BID - HELD SSI with CF 30, defer CR BSG ACHS Mental healthcontinue Celexa Dispo: admit to med/surg DVT proh: none prior to OR, post operatively defer to ortho CODE STATUS: Full Code Daughter EVA Mayo, updated at bedside History of Present Illness Chief Complaint: fall Primary Care Provider: Facundo Cordova, III, GENERATION TECHNICIAN Carmen is a 83-year-old female with a past medical history of anxiety/depression, hypertension, type 2 diabetes, CAD, GERD, and non-Hodgkin's lymphoma s/p chemotherapy in 2009. Presents after mechanical fall as she was standing on a stepstool trying to hang in [employer] outside. States her feet got tangled as she has decreased sensation due to her neuropathy from chemotherapy. She did not hit her head she did not lose consciousness. Has been feeling her normal state of health prior to this. No recent medication changes. Denies any lightheadedness or dizziness. No associated chest pain or shortness of breath. Agreeable to operative management, main goals able to walk again. ER Course: Fenatyl 25 mcq x1 morphine 4mg IV X1 zofran 4mg x 1 Allergies Allergy/AdvReac Type Severity Reaction Status Date / Time diphenhydramine Allergy Severe jerking Unverified 07/28/24 14:14 leg movements adhesive tape Allergy Intermediate Pain on Unverified 07/28/24 13:30 skin, also redness. codeine Allergy Intermediate hives Verified 07/28/24 13:30 shellfish derived Allergy Intermediate itchiness Verified 07/28/24 13:30 strawberry Allergy Intermediate ALL Unverified 07/28/24 13:30 Berries - Cause body itchiness latex Allergy Mild hives, Verified 07/28/24 13:30 itchiness amoxicillin Allergy Unknown Unknown Verified 07/28/24 14:14 ciprofloxacin [From Cipro] Allergy Unknown Unknown Verified 07/28/24 14:14 Iodinated Contrast Media Allergy Unknown "intolerant Verified 07/28/24 13:30 " cefazolin [From Ancef] AdvReac Intermediate Unknown Verified 07/28/24 14:14 Home Medications Medication Instructions Recorded Confirmed Type metformin 500 mg tablet 500 mg PO BID #180 tabs 07/18/23 07/28/24 Rx blood sugar diagnostic (OneTouch #100 strips 12/03/23 05/13/24 Rx Verio test strips) citalopram 20 mg tablet 20 mg PO DAILY #90 tabs 02/17/24 07/28/24 Rx lisinopril 20 1 tab PO DAILY #90 tabs 02/17/24 07/28/24 Rx mg-hydrochlorothiazide 12.5 mg tablet calcium carbonate 500 mg PO DAILY 07/28/24 07/28/24 History cholecalciferol (vitamin D3) 25 25 mcg PO DAILY 07/28/24 07/28/24 History mcg (1,000 unit) tablet (Vitamin D3) cyanocobalamin (vitamin B-12) 1,000 mcg PO DAILY 07/28/24 07/28/24 History 1,000 mcg tablet (Vitamin B-12) magnesium 200 mg tablet 200 mg PO DAILY 07/28/24 07/28/24 History zinc acetate 25 mg (zinc) capsule 25 mg PO DAILY 07/28/24 07/28/24 History Past Med/Surg History Problem List (Updated 07/28/24 @ 15:55 by Laura Rogers PA-C) Fracture of right hip Intertrochanteric fracture of left hip (07/28/24) acute minimally displaced intertrochanteric fracture proximal right femur. Per the ED report-patient fell off 3 foot step ladder while she was putting up easter decorations. Torus palatinus Neck swelling Enlarged lymph node in neck Vitamin D deficiency Family history of skin cancer Osteopenia Multiple fractures of ribs (Acute 08/26/23) Distal radius fracture, right (Acute ~08/26/23) COVID-19 (Acute) Anxiety and depression Hypertension GERD (gastroesophageal reflux disease) Hyperlipemia Type 2 diabetes mellitus Medical History Toxic encephalopathy Encephalopathy, hypertensive Stroke-like symptoms Malignant neoplasm of central portion of left breast in female, estrogen receptor positive (11/10/19) History of chemotherapy 2009 - R-CHOP x [address] Argueta History of radiation therapy 2010 to right jaw/neck Vasovagal syncope Weakness of both lower extremities Due to neuropathy Breast mass, left 2011 - left milk duct clogged removed by Dr. Rosado Left ventricular hypertrophy moderate, asymmetric LVH (focal thickening of basal septum with no evidence of LVOT obstruction) per 07/2018 stress echo, subsequent cardiac cath 08/2018 with mild, non-obstructive CAD, followed by Dr. Damien Robb CAD (coronary artery disease) mild, non-obstructive per 08/2018 cardiac cath Depression Arthritis Non-Hodgkin lymphoma 2009 hx chemo/xrt (several years ago) Lumbar spinal stenosis Anxiety Hypertension Left wrist injury Surgical History Port-A-Cath in place Removal in 2011 History of lumpectomy of left breast 2011 - Milk Duct Removal, 11/10/2019 - with SLN Biopsy History of cataract surgery 2016 - BOTH EYES Hx of colonoscopy 2017 OR 2019 Hx of parotidectomy RIGHT SIDE 2010 S/P tonsillectomy 1957 History of tubal ligation 1977 Family History Mother , Passed age 82 of sepsis (cancer complications) Breast cancer, Onset Age: 58 Colorectal cancer Hypertension Stroke Skin cancer Daughter Breast cancer, Onset Age: 48 Father , Passed age 88 of natural causes Diabetes Hypertension Emphysema of lung Skin cancer Daughter Breast cancer, Onset Age: 45 Son , Passed age 27 from suicide No problems noted. Brother No problems noted. 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 How many Children do You have: 3 Feels Safe at Home: Yes Childhood Exposure to Second-Hand Smoke: Yes Diet: regular caffeine: Yes (1/2 caf - 3 cup/day) during the past year weight has: remained stable Dental Care, Regularly: Yes Physical Activity Frequency: Daily Seatbelt Use: always Sunscreen Use: No Assistive Devices: Glasses Review of Systems Review of Systems: All systems reviewed & are unremarkable except as noted in Subjective Physical Exam Physical Exam: General: NAD, VS as above HEENT: MM dry Resp: normal respiratory effort, lungs clear to auscultation CV: RRR, no murmur, Abd: normal bowel sounds, non tender, no hepatosplenomegaly Extremities: right leg shortened, externally rotated. able to wiggle toes bilaterally. No LE EDema Neuro: A&O x3, Results & Data Results & Data Vital Signs (Past 12 Hours) Vital Signs Temp Pulse Pulse Resp BP BP Pulse Ox 07/28/24 15:22 82 07/28/24 14:51 79 18 93 07/28/24 14:03 76 14 99 07/28/24 14:01 76 18 134/68 100 07/28/24 14:00 134/68 07/28/24 12:33 75 18 151/75 H 100 07/28/24 11:42 79 07/28/24 11:36 97.7 F 77 18 151/78 H 100 07/28/24 11:36 97.7 F 77 18 151/78 H 100 O2 Del Method 07/28/24 15:22 07/28/24 14:51 Room Air 07/28/24 14:03 Room Air 07/28/24 14:01 Room Air 07/28/24 14:00 07/28/24 12:33 Room Air 07/28/24 11:42 07/28/24 11:36 Room Air 07/28/24 11:36 Room Air Laboratory Results CBC, chemistry LFTs reviewed Diagnostic Findings EKG reviewed Hip/pelvis x-ray reviewed humerus/shoulder/chest x-ray reviewed femur x-ray reviewed PG Care Time/CCT Total # of Minutes Spent Total Time Spent with Patient: Total time spent is greater than 50% in coordination of care (as documented) at patient's floor/unit and/or counseling patient: Coding Level of Care Code 99344 INT INP/OBS CARE MIN Diagnoses Fracture of right hip S72.001A Hypertension I10 Type 2 diabetes mellitus E11.9 Diabetes mellitus complication status: without complication Diabetes mellitus long-term insulin use: without long-term use (3) Type 2 diabetes mellitus Diabetes mellitus complication status: without complication Diabetes mellitus terminal gauger supervisor insulin use: without long-term use Qualified Code(s): E11.9 - Type 2 diabetes mellitus without complications
--- NOTE | 2024-07-28 15:41 | Anesthesiology Consultation ---
Date of Service July 28, 2024 Assessment & Plan Chart Review Chart Review: Acceptable Risk for Surgery and Patient NOT seen in Pre Admission Testing Consults Requested none History Surgery Operation Date: 07/28/24 08:50 Proposed Procedures p Right Troch Nail - Hernan Proctor DO Height/Weight Height: 5 ft 6 in Weight: 73.5 kg Allergies Allergy/AdvReac Type Severity Reaction Status Date / Time diphenhydramine Allergy Severe jerking Unverified 07/28/24 14:14 leg movements adhesive tape Allergy Intermediate Pain on Unverified 07/28/24 13:30 skin, also redness. codeine Allergy Intermediate hives Verified 07/28/24 13:30 shellfish derived Allergy Intermediate itchiness Verified 07/28/24 13:30 strawberry Allergy Intermediate ALL Unverified 07/28/24 13:30 Berries - Cause body itchiness latex Allergy Mild hives, Verified 07/28/24 13:30 itchiness amoxicillin Allergy Unknown Unknown Verified 07/28/24 14:14 ciprofloxacin [From Cipro] Allergy Unknown Unknown Verified 07/28/24 14:14 Iodinated Contrast Media Allergy Unknown "intolerant Verified 07/28/24 13:30 " cefazolin [From Ancef] AdvReac Intermediate Unknown Verified 07/28/24 14:14 Medications Home Medications Medication Instructions Recorded Confirmed Last Taken metformin 500 mg tablet 500 mg PO BID #180 tabs 07/18/23 07/28/24 07/28/24 blood sugar diagnostic (OneTouch #100 strips 12/03/23 05/13/24 Unknown Verio test strips) citalopram 20 mg tablet 20 mg PO DAILY #90 tabs 02/17/24 07/28/24 07/28/24 lisinopril 20 1 tab PO DAILY #90 tabs 02/17/24 07/28/24 07/28/24 mg-hydrochlorothiazide 12.5 mg tablet calcium carbonate 500 mg PO DAILY 07/28/24 07/28/24 07/28/24 cholecalciferol (vitamin D3) 25 25 mcg PO DAILY 07/28/24 07/28/24 07/28/24 mcg (1,000 unit) tablet (Vitamin D3) cyanocobalamin (vitamin B-12) 1,000 mcg PO DAILY 07/28/24 07/28/24 07/28/24 1,000 mcg tablet (Vitamin B-12) magnesium 200 mg tablet 200 mg PO DAILY 07/28/24 07/28/24 07/28/24 zinc acetate 25 mg (zinc) capsule 25 mg PO DAILY 07/28/24 07/28/24 07/28/24 Past Medical History Medical History Toxic encephalopathy Encephalopathy, hypertensive Stroke-like symptoms Malignant neoplasm of central portion of left breast in female, estrogen receptor positive (11/10/19) History of chemotherapy 2009 - R-CHOP x [address] Argueta History of radiation therapy 2010 to right jaw/neck Vasovagal syncope Weakness of both lower extremities Due to neuropathy Breast mass, left 2011 - left milk duct clogged removed by Dr. Rosado Left ventricular hypertrophy moderate, asymmetric LVH (focal thickening of basal septum with no evidence of LVOT obstruction) per 07/2018 stress echo, subsequent cardiac cath 08/2018 with mild, non-obstructive CAD, followed by Dr. Damien Robb CAD (coronary artery disease) mild, non-obstructive per 08/2018 cardiac cath Depression Arthritis Non-Hodgkin lymphoma 2009 hx chemo/xrt (several years ago) Lumbar spinal stenosis Anxiety Hypertension Left wrist injury Past Family History Family History Mother , Passed age 82 of sepsis (cancer complications) Breast cancer, Onset Age: 58 Colorectal cancer Hypertension Stroke Skin cancer Daughter Breast cancer, Onset Age: 48 Father , Passed age 88 of natural causes Diabetes Hypertension Emphysema of lung Skin cancer Daughter Breast cancer, Onset Age: 45 Son , Passed age 27 from suicide No problems noted. Brother No problems noted. Past Surgical History Surgical History Port-A-Cath in place Removal in 2011 History of lumpectomy of left breast 2011 - Milk Duct Removal, 11/10/2019 - with SLN Biopsy History of cataract surgery 2016 - BOTH EYES Hx of colonoscopy 2017 OR 2019 Hx of parotidectomy RIGHT SIDE 2010 S/P tonsillectomy 1957 History of tubal ligation 1977 Social History Smoking Status: Never smoker Do You Dip or Chew Tobacco: No Hx Alcohol Use: No Hx Substance Use: No substance use type: does not use Physical Exam Vital Signs Last Vital Signs Temp 36.5 C 07/28/24 11:36 Pulse 82 07/28/24 15:22 Resp 18 07/28/24 15:00 BP 148/73 H 07/28/24 15:00 Pulse Ox 96 07/28/24 15:00 O2 Del Method Room Air 07/28/24 15:00 Testing Laboratory Results 07/28/24 11:30 07/28/24 14:00 Electrocardiogram Date: 07/28/24 Findings: + NSR @ Echocardiogram Date: 02/27/21 EF: 65-70 LV Function: normal Valvular Disease: + no significant valvular disease Cardiac Catheterization Date: 08/10/18 minimal nonobstructive CAD
[2024-07-28] MEDS ORDERED: fentaNYL citrate PF 100 MCG/2 ML VIAL IV PRN (15:43)
[2024-07-28] MEDS ORDERED: ATROPINE SULFATE 0.1 MG/ML 10ML SYR IV PRN (15:43)
[2024-07-28] MEDS ORDERED: ONDANSETRON INJ 2 MG/ML 2 ML VIAL IV PRN ×2 (15:43→20:25)
[2024-07-28] MEDS ORDERED: PROPOFOL IV EMULSION 10 MG/ML 20 ML VIAL IV ONE ×2 (15:55→17:49)
[2024-07-28] MEDS ORDERED: fentaNYL citrate PF 100 MCG/2 ML VIAL ONE (15:55)
[2024-07-28] MEDS ORDERED: LIDOCAINE 2% 2 ML VIAL/AMP(20MG/ML) INFIL ONE (15:55)
[2024-07-28] MEDS ORDERED: ONDANSETRON INJ 2 MG/ML 2 ML VIAL ONE (15:55)
[2024-07-28 16:06] LABS: Appearance Urine Clear (Clear); Bilirubin Urine Negative (Negative); Blood Urine Negative (Negative); Color Urine Yellow; Glucose Urine UA Negative (Negative); Ketones Urine Trace (Negative); Leukocyte Esterase Urine Negative (Negative); Nitrite Urine Negative (Negative); Protein Urine Negative (Negative); Specific Gravity Urine 1.018 (1.000-1.030); Urobilinogen Urine Negative (Negative)
[2024-07-28] MEDS ORDERED: BUPIVACAINE/EPINEPHRINE 0.5% MPF 1:200,000 10 ML VIAL ONE (16:55)
[2024-07-28] MEDS ORDERED: PHENYLEPHRINE 100MCG/ML 10ML SYR IV ONE (17:38)
[2024-07-28] MEDS ORDERED: PHENYLEPHRINE HCL 10 MG/ML VIAL ONE (17:57)
[2024-07-28] MEDS: ePHEDrine sulfate 50 MG/ML AMP IV PRN (19:35)
--- NOTE | 2024-07-28 19:39 | Operative Report ---
Post Operative Report Pre & Post Diagnosis Operation Date: 07/28/24 08:50 <No data on this case meets the specified criteria> Preop diagnosis: 1. Closed, traumatic, displaced right intertrochanteric hip fracture Postop diagnosis: 1. Closed, traumatic, displaced right intertrochanteric hip fracture I identified the patient and participated in the time-out.: Yes Procedure Operation Date: 07/28/24 08:50 <No data on this case meets the specified criteria> 1. Open reduction cephalomedullary nailing right hip 2. Physician directed fluoroscopy greater than 1 hour Surgeon Hernan Proctor DO Cap Inspector none Estimated Blood Loss 200 Findings Consistent with Post-Op Diagnosis Fluids see anesthesia record Specimens none Complications none Disposition Disposition: Recovery Room Indications Carmen is a pleasant 84-year-old female who presents to the emergency department via EMS after a fall wherein she sustained a right hip fracture. She is joined in the emergency department by her daughter. I had a long discussion with the patient and her daughter regarding the nature of this injury. We discussed in great detail the pathoanatomy, pathophysiology, treatment options. I impressed upon them that hip fractures oftentimes represent a "harbinger worse things to come", and very commonly occur in frail elderly patients nearing the end of their lives. I also discussed with him that following a hip fracture, patients often times lose 1 degree of mobility such that patients who ordinarily ambulate without assistive devices requiring assistive device or if they are ambulate with an assistive device at baseline, often times following surgery do not do much more than stand pivot transfer. They expressed understanding to all of the above. Specifically, with regards to this patient's hip fracture, she has an intertrochanteric right hip fracture for which my recommendation is for operative intervention to include open versus closed reduction and cephalomedullary nailing. I expressed to them the risk of the surgery include but are not limited to loss of life/limb, DVT, incomplete relief of pain, need for additional surgery, nonunion, malunion, hardware complication, hardware failure, hardware irritation. I discussed with them the alternatives to surgery which would be for nonoperative management. Nonoperative management carries with it decrease risk of infection, however I believe has much higher risk of complications of immobilization as patients with nonoperatively treated hip fractures often times do not mobilize for up to 6 weeks. Complications of immobilization include but are not limited to DVT, decubitus ulcers, pneumonia. The benefits of surgical management would include pain control and earlier ambulation to help decrease risks of immobilization. All of the patient and her daughter's questions were answered to their satisfaction. Through shared decision making model into Jalen discussion of the risk, benefits, alternatives to surgical management, they have elected to proceed with operative management. We will plan to proceed to the operating room pending medical clearance and appropriate p.o. status. Please keep n.p.o. for now Surgical plan: Right hip closed versus open reduction and internal fixation with cephalomedullary nail Description of Procedure after informed consent was obtained, the patient was correctly identified in the preoperative holding suite, the operative site was marked with the surgeon's initials, the date of surgery, and the word yes. The patient was then taken to the operative suite. The department of anesthesia administered Spinal anesthesia. The patient was transferred from the [facility] to the operative table. All bony prominences were well-padded. Briefing and timeout was performed. All implants were available and sterile at the time. BRIEFING AND DEBRIEFING: Pre and post operative briefing and debriefing was performed. Introductions were made, goals of the procedure were discussed, questions and concerns were addressed. The operative site markings were identified and appropriate. A time [id number] was performed, the patient's correct identity was confirmed and the correct o perative sites were identified. The patients pre-operative antibiotic dosing and administration was confirmed along with other SCIP measures. The team was polled at the completion of the surgery and all team members were in agreement that the procedure was without complication, the counts are correct, the wound class was identified and suggestions for improvement were shared. after adequate anesthesia was induced, the patient's bilateral feet were well- padded and placed into the [place] boots. She was then rolled and transferred onto the [place] table and the perineal post was then placed. Her right upper extremity was padded and draped across her chest and her left upper extremity was out the side. We brought an x-ray and with traction, internal rotation we obtained a preliminary reduction. We noticed at this point that even with adequate adduction, there was a medial spike, so we would need to perform an open reduction for this. We then prepped and draped the right lower extremity in standard sterile fashion using ChloraPrep and a shower curtain. we began by marking out the anatomy the proximal femur to include the tip of the greater trochanter as well as the intended trajectory of our lag bolt. We would make an incision in line with the femoral shaft approximately 2 cm proximal to the tip the greater trochanter and 4 cm in length. We dissected bluntly down to the gluteal fascia using Jack scissors until we encountered the tip of the greater trochanter. Soft tissue's were bluntly spread away and the starting wire was then introduced. We checked its position fluoroscopically on AP and lateral views until we were satisfied and we advanced this into the proximal femur. We ensured to be just medial to the tip of the greater trochanter so as to prevent fracture varus. Over the guidewire we used the opening reamer and selected an appropriately sized nail. We would select the Synthes TFN 130 degrees x 11 mm x 170 mm. We attached this to the insertion handle and inserted it in an antegrade fashion. At this point we would plan for our open reduction of the femoral neck. In line with the shaft on the lateral view we would make an incision approximately 6 cm in length. We dissected bluntly down to the IT band and incised this sharply. Then, using the Triana elevator, we cleared adherent muscle off the lateral aspect of the femur and dissected anteriorly over the neck and the anticipated trajectory of our bone hook. Once we are satisfied that all soft tissues were clear, we inserted the bone hook safely around the inferior calcar and pulled laterally to obtain an appropriate reduction. Additional traction was needed on the leg in order to gain this reduction and once we were satisfied, we placed the targeting guide for the lag bolt through the insertion handle and advanced the guidewire for the lag bolt into the femoral head. We checked the position of the guidewire on AP and lateral fluoroscopic views to ensure appropriate trajectory and a center center position in the femoral head if not slightly inferior to prevent screw cut out. Once were satisfied with this, we placed a supplemental wire outside of the nail to hold this reduction in place. We also maintained the position of the bone hook. We would then drill over the guidewire for the lag bolt to a 100 mm and selected the 100 mm lag bolt. We inserted this over the guidewire until it was just inside the lateral cortex and then we would tighten down the locking knot proximally. We backed the locking knot off one quarter turn and then compressed through the jig. Excellent compression was achieved and once we were satisfied we ensured the locking knot proximally was fully secured and then backed off one quarter turn to allow dynamic compression. We then removed the bone hook and we were satisfied with our hardware placement and reduction. Then, through the targeting guide distally we would drill and place an appropriately sized distal interlocking screw. We removed the insertion handle as well as the supplementary reduction wire and took our final fluoroscopic views. We would then thoroughly irrigate all wounds, closed the IT band and the gluteal fascia with 0 Vicryl sutures followed by 2-0 Vicryl in the subcutaneous tissue and a running 3-0 subcuticular Monocryl. The skin was then adhered with skin glue. Once this dried, we applied Acticoat Flex and a tanisha dressing. The patient tolerated this procedure well and was transferred to the PACU in stable condition. Prior to transportation to PACU, all counts were correct and a briefing was performed at the end of the case. Physician-directed fluoroscopy for Greater than one hour was performed by myself to verify fracture alignment and the safe placement of all internal fixation. The final images saved to PACs showed views demonstrating satisfactory alignment of the fracture and stable internal fixation. Implant verification was performed by myself by reading and confirming the implant information on the packaging with the team before the sterile implants were opened. I was present for the entire procedure. Plan: Weight bearing status: 10 to 20 kg right lower extremity Wound care: keep dressing clean and dry Range of motion: as tolerated VTE Prophylaxis: okay to begin from orthopedic standpoint Antibiotics: perioperative clindamycin secondary to Ancef allergy Pain Control: Multimodal Vitamin D Replacement: labs to be collected Discharge Plan: pending PT/OT Follow Up: with myself in 2 weeks Implants: Synthes TFN a 130 degrees x 11 x 170 mm short nail Lag bolt: 100 mm lag bolt Interlocking screw: 5.5x40 mm I attest to the content of the Intraoperative Record and any orders documented therein. Any exceptions are noted below.
--- NOTE | 2024-07-28 20:07 | Anesthesiology Progress Note ---
Date of Service July 28, 2024 Anesthesia Post Procedure Vital Signs Vital Signs: Temp Pulse Pulse Resp BP BP Pulse Ox 07/28/24 20:00 36.4 C L 88 18 119/61 98 07/28/24 19:50 82 18 121/62 96 07/28/24 19:40 75 16 129/69 100 07/28/24 19:29 36.3 C L 76 12 71/40 L 98 07/28/24 16:35 36.8 C 84 17 138/67 96 07/28/24 15:22 82 07/28/24 15:00 86 18 148/73 H 96 07/28/24 14:51 79 18 93 07/28/24 14:03 76 14 99 07/28/24 14:01 76 18 134/68 100 07/28/24 14:00 134/68 07/28/24 12:33 75 18 151/75 H 100 07/28/24 11:42 79 07/28/24 11:36 36.5 C 77 18 151/78 H 100 07/28/24 11:36 36.5 C 77 18 151/78 H 100 O2 Del Method O2 Flow Rate 07/28/24 20:00 Room Air 07/28/24 19:50 Room Air 07/28/24 19:40 Oxymask 3 07/28/24 19:29 Oxymask 6 07/28/24 16:35 Room Air 07/28/24 15:22 07/28/24 15:00 Room Air 07/28/24 14:51 Room Air 07/28/24 14:03 Room Air 07/28/24 14:01 Room Air 07/28/24 14:00 07/28/24 12:33 Room Air 07/28/24 11:42 07/28/24 11:36 Room Air 07/28/24 11:36 Room Air Pain Intensity Right Hip: Pain Intensity: 4 Transfer of Care Handoff Completed per policy Notes Mental Status: alert / awake / arousable Patient Amnestic to Procedure: Yes Nausea / Vomiting: adequately controlled Pain: adequately controlled Airway Patency, RR, SpO2: stable & adequate BP & HR: stable & adequate Hydration State: stable & adequate Neuraxial Anesthesia: was administered and sensory block is resolving Anesthetic Complications: no major complications apparent and Pt Satisfied with anesthetic care
[2024-07-28] MEDS ORDERED: DEXTROSE 50% 50 ML SYRINGE IV PRN (20:25)
[2024-07-28] MEDS ORDERED: POLYETHYLENE (MIRALAX) 17 GM PACK PO PRN (20:25)
[2024-07-28] MEDS ORDERED: MoRPHine SULFATE 2 MG/ML CARP IV PRN (20:25)
[2024-07-28] MEDS ORDERED: CARBOHYDRATES FOR HYPOGLYCEMIA PO PRN (20:25)
[2024-07-28] MEDS ORDERED: GLUCOSE 40% GEL 15 GM TUBE PO PRN (20:25)
[2024-07-28] MEDS ORDERED: GLUCAGON FOR INJ 1 MG VIAL SQ PRN (20:25)
[2024-07-28] MEDS ORDERED: GLUCOSE 10 TAB/TUBE PO PRN (20:25)
[2024-07-28] MEDS: ACETAMINOPHEN 500 MG TAB PO SCH (21:19)
--- NOTE | 2024-07-28 21:22 | XRay Report ---
Exam(s): XR RIGHT HIP EXAM: XR Right Hip With Pelvis When Performed, 2 or 3 Views CLINICAL HISTORY: Reason for exam: postop. TECHNIQUE: Two or three views of the right hip with pelvis when performed. COMPARISON: 07/28/2024 FINDINGS: Bones/joints: There is intramedullary anton through the subtrochanteric and intratrochanteric femur. There is an interlocking screw extending across the right femoral neck. The intertrochanteric fracture line is partially visualized. There is near-anatomic postsurgical alignment. Soft tissues: Unremarkable. IMPRESSION: There is intramedullary anton through the subtrochanteric and intratrochanteric femur. There is an interlocking screw extending across the right femoral neck. The intertrochanteric fracture line is partially visualized. Postsurgical alignment is within normal limits. Electronically signed by: Xander Zeng MD 07/28/24 21:20 PM
[2024-07-28] MEDS: CLINDAMYCIN 900 MG/D5W 50 ML BAG IV ONE (22:14)
[2024-07-28] MEDS: CLINDAMYCIN/D5W 900 MG/50 ML BAG IV SCH (22:14)
[2024-07-28] MEDS: INSULIN ASPART PER UNIT CHARGE SC SCH (22:15)
[2024-07-29] MEDS: CLINDAMYCIN/D5W 600 MG/50 ML BAG IV SCH (01:44)
[2024-07-29] MEDS: oxyCODONE HCL IR 5 MG TAB (IMMEDIATE RELEASE) PO PRN (01:59)
[2024-07-29 08:18] LABS: Basophils # (auto) 0.02 K/uL (0.00-0.20); Basophils % (auto) 0.2 %; Eosinophils # (auto) 0.04 K/uL (0.00-0.50); Eosinophils % (auto) 0.5 %; Hematocrit (blood only) 31.2 % (37.0-47.0); Hemoglobin 10.1 g/dl (12.0-16.0); Immature Granulocytes # (auto) 0.02 K/uL (0.01-0.20); Immature Granulocytes % (auto) 0.2 %; Lymphocytes % (auto) 22.4 %; Mean Corpuscular Hemoglobin 29.5 pg (25.0-34.0); Mean Corpuscular Hgb Conc 32.4 g/dL (32.0-36.0); Mean Corpuscular Volume 91.2 fL (80.0-100.0); Mean Platelet Volume 10.7 fL (9.4-12.4); Monocytes # (auto) 0.55 K/uL (0.11-0.59); Monocytes % (auto) 6.5 %; Neutrophils # (auto) 5.97 K/uL (1.40-6.50); Neutrophils % (auto) 70.2 %; Platelet Count 177 K/uL (130-400); RDW Coefficient of Variation 13.2 % (11.5-14.5); RDW Standard Deviation 43.8 fL (36.4-46.3); Red Blood Count 3.42 M/uL (4.20-5.40)
[2024-07-29 08:36] LABS: BUN Creatinine Ratio 29.7 (10-20); Calcium 8.4 mg/dl (8.6-10.3); Creatinine Clr Calc Pharmacy 59.1 ml/min; Potassium 4.3 mmol/L (3.5-5.1)
--- NOTE | 2024-07-29 08:46 | Electrocardiogram Report ---
Test Reason : Blood Pressure : */* mmHG Vent. Rate : 81 BPM Atrial Rate : 81 BPM P-R Int : 166 ms QRS Dur : 78 ms QT Int : 370 ms P-R-T Axes : 67 -10 54 degrees QTcB Int : 429 ms Normal sinus rhythm Low voltage QRS Borderline ECG When compared with ECG of 05-Sep-2022 09:18, No significant change was found Confirmed by Sandro Dang ([id number]) on 07/29/2024 8:46:35 AM Referred By: REFERRED SELF Confirmed By: Sandro Dang
[2024-07-29] MEDS: CYANOCOBALAMIN (B-12) 500 MCG TABLET PO SCH (08:57)
[2024-07-29] MEDS: CITALOPRAM 20 MG TAB PO SCH (08:57)
[2024-07-29] MEDS: CHOLECALCIFEROL 25 MCG (1000 UNITS) TAB PO SCH (08:58)
--- NOTE | 2024-07-29 09:13 | Fluoroscopy Report ---
FL hip RT 2-3V CLINICAL HISTORY: RT TROCH NAIL COMPARISON STUDY: 07/28/2024 FLUOROSCOPY TIME: 200 seconds FLUOROSCOPY IMAGES: 7 EXPOSURE DOSE: 22 mGy FINDINGS: Fluoroscopy was provided for short right femoral gamma nail. IMPRESSION: Intraoperative fluoroscopy. ACT 112: Negative or not required by law. Electronically signed by: Teja Ashford M.D. 07/29/2024 9:12 AM
--- NOTE | 2024-07-29 13:12 | Orthopedic Progress Note ---
Date of Service July 29, 2024 Assessment & Plan (1) Intertrochanteric fracture of right hip: (2) Vitamin D deficiency: (3) Osteopenia: (4) Anxiety and depression: (5) GERD (gastroesophageal reflux disease): (6) Hyperlipemia: (7) Type 2 diabetes mellitus: Plan patient doing well postoperative day #1 status post closed reduction and cephalomedullary nailing of the right hip. Patient is 10 to 20 kg weightbearing right lower extremity. She should work with PT/OT to determine appropriate discharge plan Okay for DVT prophylaxis from orthopedic standpoint Continue multimodal pain control Out of bed to chair 3 times daily with all meals. She will follow-up with me in 2 weeks for incision check. Admission and Anticipated Discharge Date Admission Date: July 28, 2024 Subjective postoperative day #1 status post open reduction cephalomedullary nailing right hip. Patient doing well. Resting comfortably in bed. Pain well-controlled. Review of Systems Review of Systems: All systems reviewed & are unremarkable except as noted in HPI & below Physical Exam Physical Exam: Surgical incision clean and dry. Patient demonstrates active EHL/FHL/GSC/TA motor function. Sensation at baseline in right lower extremity. Results & Data Vital Signs (Past 12 Hours) Vital Signs Temp Pulse Pulse Resp BP Pulse Ox O2 Del Method 07/29/24 07:28 37.1 C 72 16 114/61 94 Room Air 07/29/24 04:00 36.7 C 74 14 118/65 95 Room Air 07/29/24 02:01 36.7 C 78 16 112/65 97 Room Air Diagnostic Findings Postoperative imaging reviewed demonstrate stable internal fixation right hip (7) Type 2 diabetes mellitus Diabetes mellitus complication status: without complication Diabetes mellitus long goods drier insulin use: without assisted use Qualified Code(s): E11.9 - Type 2 diabetes mellitus without complications
[2024-07-29] MEDS: ENOXAPARIN INJ 40 MG/0.4 ML SYR SQ SCH (17:56)
--- NOTE | 2024-07-29 18:32 | Hospitalist Progress Note ---
"Date of Service July 29, 2024 Assessment & Plan (1) Fracture of right hip: (2) Hypertension: (3) Type 2 diabetes mellitus: Plan Carmen is a 83-year-old female with a past medical history of anxiety/depression, hypertension, type 2 diabetes, CAD, GERD, and non-Hodgkin's lymphoma s/p chemotherapy in 2009. Presents after mechanical fall resulting in right hip fracture. underwent right hip open reduction and cephalomedullary nailing by Dr. Proctor on 07/28, no immediate postoperative problems #Right hip fracture | Fall Mechanical fall, no head strike, no LOC, no thinners. UA negative for pyuria vitamin D level is normal at 60, continue home supplementation pain control: scheduled tylenol, prn oxycodone, prn morphine bowel regimen PT/OT, anticipate rehab stay postoperative acute blood loss anemia - expected drop in hemoglobin from 12.5 down to 10.1 overnight. Start every other day ferrous sulfate once bowels are moving, follow-up CBC as an outpatient in 4 to 6 weeks for resolution of anemia #Hypertension - currently normotensive Lisinoprilhydrochlorothiazide resume #Diabetes A1c 6.4 04/2024, Home regimen: metformin 500 mg BID - HELD SSI with CF 30, defer CR BSG ACHS - reviewed has been at goal ranging from [id number] Mental healthcontinue Celexa DVT prophylaxisordered subcu enoxaparin Daughter EVA Mayo, updated at bedside 07/28 Admission and Anticipated Discharge Date Admission Date: July 28, 2024 Subjective doing well postop she did sit EOB with therapy but got lightheaded no R hip pain if not moving she does have chronic intermittent numbness of her left leg that is positional and tends to come and gounchanged no dyspnea or CP Physical Exam 2 Physical Exam: PHYSICAL EXAMINATION Last 24h vital signs reviewed, see documentation in flowsheet General: comfortable appearing, no distress, awake alert in bed HEENT: Normocephalic, atraumatic, pupils round and equal, sclerae anicteric, no conjunctival injection, moist mucus membranes Lungs: Normal respiratory effort. Clear to auscultation bilaterally. No RRW Heart: Regular rate and rhythm, no murmurs. No JVD Abdomen: Soft, nontender, nondistended. Bowel sounds present. Extremities: Warm, dry, well-perfused. legs and hip abductor pillow. Right hip dressed in surgical dressing no strikethrough. No extremity edema. Both feet are warm with 2+ DP pulses Neuro: Alert and oriented x 4, face symmetric, moves 4 extremities well Psych: Normal affect and behavior Results & Data Results & Data Vital Signs (Past 12 Hours) Vital Signs Temp Pulse Resp BP Pulse Ox O2 Del Method 07/29/24 17:00 37.3 C 07/29/24 15:16 37.7 C H 84 18 118/71 94 Room Air 07/29/24 07:28 37.1 C 72 16 114/61 94 Room Air Laboratory Results 07/29/24 07:46 07/29/24 07:46 PG Care Time/CCT Total # of Minutes Spent Total Time Spent with Patient: Total time spent is greater than 50% in coordination of care (as documented) at patient's floor/unit and/or counseling patient: Coding Level of Care Code 03197 SUB INP/OBS CARE 2/35MIN Diagnoses Fracture of right hip S72.001A Encounter type: initial encounter Fracture type: closed Hypertension I10 Type 2 diabetes mellitus E11.9 Diabetes mellitus complication status: without complication Diabetes mellitus termite renewal inspector insulin use: without termite renewal inspector use (1) Fracture of right hip Encounter type: initial encounter Fracture type: closed Qualified Code(s): S 72.001A - Fracture of unspecified part of neck of right femur, initial encounter for closed fracture (3) Type 2 diabetes mellitus Diabetes mellitus complication status: without complication Diabetes mellitus termite renewal inspector insulin use: without alf use Qualified Code(s): E11.9 - Type 2 diabetes mellitus without complications"
[2024-07-30] MEDS: SODIUM CHLORIDE 0.9% 1,000 ML IV ONE (12:41)
--- NOTE | 2024-07-30 17:42 | Hospitalist Progress Note ---
"Date of Service July 30, 2024 Assessment & Plan (1) Fracture of right hip: (2) Hypertension: (3) Type 2 diabetes mellitus: Plan Carmen is a 83-year-old female with a past medical history of anxiety/depression, hypertension, type 2 diabetes, CAD, GERD, and non-Hodgkin's lymphoma s/p chemotherapy in 2009. Presents after mechanical fall resulting in right hip fracture. underwent right hip open reduction and cephalomedullary nailing by Dr. Proctor on 07/28, no immediate postoperative problems #Right hip fracture | Fall Mechanical fall, no head strike, no LOC, no thinners. UA negative for pyuria vitamin D level is normal at 60, continue home supplementation pain control: scheduled tylenol, prn oxycodone, prn morphine bowel regimen PT/OT, anticipate rehab stay - plan to discharge to [facility] # orthostatic hypotension, symptomatic of lightheadedness - 1 L normal saline bolus today, assess response - she is not getting any medications that would cause orthostasis - hemoglobin is adequate, recheck in a.m. postoperative acute blood loss anemia - expected drop in hemoglobin from 12.5 down to 10.1. Start every other day ferrous sulfate once bowels are moving, follow-up CBC as an outpatient in 4 to 6 weeks for resolution of anemia #Hypertension - currently normotensive Lisinoprilhydrochlorothiazide continues to be held #Diabetes A1c 6.4 04/2024, Home regimen: metformin 500 mg BID - HELD SSI with CF 30, defer CR BSG ACHS - at goal Mental healthcontinue Celexa DVT prophylaxisordered subcu enoxaparin Daughter EVA Mayo, updated at bedside 07/28 Admission and Anticipated Discharge Date Admission Date: July 28, 2024 Subjective continues to have orthostasis with lightheadedness on sitting/standing was in chair about 10 minutes right hip painnone at rest was 5/10 when getting up, tolerable. Has not been using any opioids today still has Ruiz catheter Physical Exam Physical Exam: PHYSICAL EXAMINATION Last 24h vital signs reviewed, see documentation in flowsheet General: comfortable appearing, no distress, awake alert in bed exam unchanged 07/30 HEENT: Normocephalic, atraumatic, pupils round and equal, sclerae anicteric, no conjunctival injection, moist mucus membranes Lungs: Normal respiratory effort. Clear to auscultation bilaterally. No RRW Heart: Regular rate and rhythm, no murmurs. No JVD Abdomen: Soft, nontender, nondistended. Bowel sounds present. : Ruiz catheter yellow urine Extremities: Warm, dry, well-perfused. legs and hip abductor pillow. Right hip dressed in surgical dressing no strikethrough. No extremity edema. Both feet are warm with 2+ DP pulses Neuro: Alert and oriented x 4, face symmetric, moves 4 extremities well Psych: Normal affect and behavior Results & Data Results & Data Vital Signs (Past 12 Hours) Vital Signs Temp Pulse Resp BP Pulse Ox O2 Del Method 07/30/24 15:12 37.6 C H 84 17 124/69 95 Room Air 07/30/24 08:46 36.9 C 81 16 126/64 96 Room Air PG Care Time/CCT Total # of Minutes Spent Total Time Spent with Patient: Total time spent is greater than 50% in coordination of care (as documented) at patient's floor/unit and/or counseling patient: Coding Level of Care Code 21898 SUB INP/OBS CARE 2/35MIN Diagnoses Fracture of right hip S72.001A Encounter type: initial encounter Fracture type: closed Hypertension I10 Type 2 diabetes mellitus E11.9 Diabetes mellitus complication status: without complication Diabetes mellitus correction insulin use: without joint terminal attack controller use (1) Fracture of right hip Encounter type: initial encounter Fracture type: closed Qualified Code(s): S72.001A - Fracture of unspecified part of neck of right femur, initial encounter for closed fracture (3) Type 2 diabetes mellitus Diabetes mellitus complication status: without complication Diabetes mellitus correction insulin use: without joint terminal attack controller use Qualified Code(s): E11.9 - Type 2 diabetes mellitus without complications"
--- NOTE | 2024-07-31 13:51 | Hospitalist Progress Note ---
"Date of Service July 31, 2024 Assessment & Plan (1) Fracture of right hip: (2) Hypertension: (3) Type 2 diabetes mellitus: Plan Carmen is a 83-year-old female with a past medical history of anxiety/depression, hypertension, type 2 diabetes, CAD, GERD, and non-Hodgkin's lymphoma s/p chemotherapy in 2009. Presents after mechanical fall resulting in right hip fracture. underwent right hip open reduction and cephalomedullary nailing by Dr. Proctor on 07/28, no immediate postoperative problems #Right hip fracture | Fall Mechanical fall, no head strike, no LOC, no thinners. UA negative for pyuria vitamin D level is normal at 60, continue home supplementation pain control: scheduled tylenol, has not been using any opioids bowel regimen discontinue carballo PT/OT, anticipate rehab stay - plan to discharge to [facility] should be ready tomorrow # orthostatic hypotension, symptomatic of lightheadedness - 1 L normal saline bolus 07/30 - she is not getting any medications that would cause orthostasis - asymptomatic today and BP did not fall #right shoulder/upper arm pain - shoulder and humerus xray negative on admission. on exam external rotation very weak, mildly weak internal rotation, difficulty raising arm above head -suspicious for rotator cuff injury - discussed with covering orthopedic surgeon - recommended follow up with Dr. Proctor as outpatient as long as xrays negative postoperative acute blood loss anemia - expected drop in hemoglobin from 12.5 down to 10.1. Start every other day ferrous sulfate once bowels are moving, follow-up CBC as an outpatient in 4 to 6 weeks for resolution of anemia #Hypertension - mostly normotensive Lisinoprilhydrochlorothiazide continues to be held #Diabetes A1c 6.4 04/2024, Home regimen: metformin 500 mg BID - HELD SSI with CF 30, defer CR BSG ACHS - at goal rev 07/30 Mental healthcontinue Celexa DVT prophylaxis subcu enoxaparin Daughter EVA Mayo, updated at bedside 07/28, 07/31 Admission and Anticipated Discharge Date Admission Date: July 28, 2024 Subjective R hip pain improved, no lightheadedness, took few steps and got into chair - has been there awhile, did makeup hair etc R shoulder/upper arm is painful. Can't remember if arm was outstretched when she fell. Feels weak. Most painful upper triceps area Physical Exam 2 Physical Exam: PHYSICAL EXAMINATION Last 24h vital signs reviewed, see documentation in flowsheet General: sitting up in chair HEENT: Normocephalic, atraumatic, pupils round and equal, sclerae anicteric, no conjunctival injection, moist mucus membranes Lungs: nl WOB Heart: def Abdomen: nondistended. : Carballo catheter yellow urine Extremities: Warm, dry, well-perfused. R hip silver drsg cdi. R shoulder/upper arm without deformity/ecchymosis. tender upper arm laterally, posteriorly. shoulder abduction strength intact, neg impingement sign, internal rotation mildly weak, external rotation very weak 2/5 and causes pain, cannot raise arm above 90 degrees (usually can brush hair etc without difficulty) LE wwp no edema Neuro: Alert and oriented x 4, face symmetric, moves 4 extremities well Psych: Normal affect and behavior Results & Data Results & Data Vital Signs (Past 12 Hours) Vital Signs Temp Pulse Resp BP Pulse Ox O2 Del Method 07/31/24 07:38 36.8 C 74 18 144/72 H 99 Room Air Laboratory Results 07/29/24 07:46 07/29/24 07:46 PG Care Time/CCT Total # of Minutes Spent Total Time Spent with Patient: Total time spent is greater than 50% in coordination of care (as documented) at patient's floor/unit and/or counseling patient: Coding Level of Care Code 38092 SUB INP/OBS CARE 2/35MIN Diagnoses Fracture of right hip S72.001A Encounter type: initial encounter Fracture type: closed Hypertension I10 Type 2 diabetes mellitus E11.9 Diabetes mellitus complication status: without complication Diabetes mellitus longterm insulin use: without longwall foreman use (1) Fracture of right hip Encounter type: initial encounter Fracture type: closed Qualified Code(s): S 72.001A - Fracture of unspecified part of neck of right femur, initial encounter for closed fracture (3) Type 2 diabetes mellitus Diabetes mellitus complication status: without complication Diabetes mellitus longwall foreman insulin use: without longwall foreman use Qualified Code(s): E11.9 - Type 2 diabetes mellitus without complications"
[2024-08-01 07:06] LABS: Hematocrit (blood only) 26.1 % (37.0-47.0); Hemoglobin 8.5 g/dl (12.0-16.0); Mean Corpuscular Hemoglobin 29.5 pg (25.0-34.0); Mean Corpuscular Hgb Conc 32.6 g/dL (32.0-36.0); Mean Corpuscular Volume 90.6 fL (80.0-100.0); Mean Platelet Volume 10.5 fL (9.4-12.4); Platelet Count 185 K/uL (130-400); RDW Coefficient of Variation 13.2 % (11.5-14.5); RDW Standard Deviation 44.2 fL (36.4-46.3); Red Blood Count 2.88 M/uL (4.20-5.40); White Blood Count 6.72 K/ul (4.8-10.8)
[2024-08-01 07:23] VITALS: BP 150/71; PULSE 72; RESP 17; TEMP 98.1; O2SAT 96
--- NOTE | 2024-08-01 09:56 | Discharge Summary ---
Discharge Summary Date of Service August 01, 2024 Principal Dx & Hospital Course #1 = Principal Diagnosis (1) Fracture of right hip: (2) Hypertension: (3) Type 2 diabetes mellitus: Sheron Morales is a 83-year-old female with a past medical history of anxiety/depression, hypertension, type 2 diabetes, CAD, GERD, and non-Hodgkin's lymphoma s/p chemotherapy in 2009. Presents after mechanical fall resulting in right hip fracture. underwent right hip open reduction and cephalomedullary nailing by Dr. Proctor on 07/28, no immediate postoperative problems # pathologic osteoporotic right hip fracture Mechanical fall, no head strike, no LOC, no thinners. UA negative for pyuria vitamin D level is normal at 60, continue home supplementation pain control: scheduled tylenol, has not been using any opioids postoperatively bowel regimen 10 to 20 pounds weightbearing right lower extremity per Ortho, follow-up with Dr. Proctor in 2 weeks # orthostatic hypotension, symptomatic of lightheadedness. chronic hypertension - 1 L normal saline bolus 07/30 - she is not getting any medications that would cause orthostasis - asymptomatic since then - normotensive most of the admission however in the past 24 hours has become hypertensive again with blood pressures in the [id number]/70's range. resume lisinopril hydrochlorothiazide on discharge #right shoulder/upper arm pain - shoulder and humerus xray negative on admission. on exam external rotation very weak, mildly weak internal rotation, difficulty raising arm above head -suspicious for rotator cuff injury - discussed with covering orthopedic surgeon - recommended follow up with Dr. Proctor as outpatient - reexamined 08/01 and her strength has improved she now has 3/5 strength external rotation and internal rotation and can raise her arm higher not all the way overhead but can get above the shoulder, she also reports that her hand strength with respect to writing has improved - PT/OT, at minimum range of motion exercises postoperative acute blood loss anemia - expected drop in hemoglobin from 12.5 down to 10.1. further drops to 8's today I think that was dilutional from getting IV saline. there is no evidence of hematoma around her right hip Start every other day ferrous sulfate, follow-up CBC as an outpatient in 4 to 6 weeks for resolution of anemia #Diabetes A1c 6.4 04/2024, Home regimen: metformin 500 mg BID - resume blood glucoses have been almost entirely in the 130s and range while hospitalized she only had 1 elevated 1 of 179. I do not think she needs blood glucose checks multiple times a day, perhaps just every morning or every few days Mental healthcontinue Celexa DVT prophylaxis subcu enoxaparin x 6 weeks Daughter EVA Mayo, updated at bedside 07/28, 07/31 Notes For Next Care Provider resuming metformin and lisinopril hydrochlorothiazide on discharge Medication Changes From Visit ferrous sulfate every 48 hours enoxaparin or other DVT prophylaxis for 6 weeks scheduled acetaminophen Admission HPI Per Admitting Provider Carmen is a 83-year-old female with a past medical history of anxiety/depression, hypertension, type 2 diabetes, CAD, GERD, and non-Hodgkin's lymphoma s/p chemotherapy in 2009. Presents after mechanical fall as she was standing on a stepstool trying to hang in [place] outside. States her feet got tangled as she has decreased sensation due to her neuropathy from chemotherapy. She did not hit her head she did not lose consciousness. Has been feeling her normal state of health prior to this. No recent medication changes. Denies any lightheadedness or dizziness. No associated chest pain or shortness of breath. Agreeable to operative management, main goals able to walk again. ER Course: Fenatyl 25 mcq x1 morphine 4mg IV X1 zofran 4mg x 1 Discharge Exam PHYSICAL EXAMINATION Last 24h vital signs reviewed, see documentation in flowsheet General: sitting up in chair HEENT: Normocephalic, atraumatic, pupils round and equal, sclerae anicteric, no conjunctival injection, moist mucus membranes Lungs: nl WOB Heart: def Abdomen: nondistended. : Ruiz catheter yellow urine Extremities: right hip incision dressed, no surrounding ecchymosis or evidence of hematoma no significant edema right lower extremity, see shoulder exam in assessment and plan above LE wwp no edema Neuro: Alert and oriented x 4, face symmetric, moves 4 extremities well Psych: Normal affect and behavior Discharge Plan Discharge Items Patient Disposition: Transfer Inpatient Rehab Fac Reason For Visit: HIP FRACTURE Discharge Diagnosis: Right hip fracture, right shoulder injury Activity: Per Instructions section Weightbearing: Right partial Non-emergency contact: Primary Care Provider and Surgeon Call non-emergency contact if: you have any medication questions, your symptoms worsen and you have a fever Follow-up/Referrals: Rashi Deluca, [Physician] - Hernan Proctor DO [Surgeon] - Diet: Carb Consistent or DM2 Addtl Attending Provider Instructions: R hip fracture R shoulder pain - xray shoulder and humerus negative Had orthostatic hypotension postop, resolved after V saline bolus Postoperative anemia - qod ferrous sulfate, follow CBC periodically for resolution Addtl Master Carpenter Provider Instructions: Patient is 10 to 20 kg weightbearing right lower extremity. R shoulder ROM exercises - suspect rotator cuff strain or partial tear She should work with PT/OT Out of bed to chair 3 times daily with all meals. diabetes - has had BG checks mainly in 130s despite holding metformin and being on regular diet in hospital. Doesn't need tid BG checks, perhaps just qAM follow-up with Dr. Proctor in 2 weeks for incision check. Pending Studies at Discharge: No Stand-Alone Forms: My [facility] Skilled Items Patient informed of condition?: Yes DNR: No Discharge Level of Care: Acute rehab Communicable Disease: No Discharge Prognosis: Improving Lines: None Urinary Catheter: No Medications and DC Order Prescriptions: New acetaminophen [Tylenol Extra Strength] 500 mg Tablet 1,000 mg PO Q8H Qty: 0 0RF polyethylene glycol 3350 [Miralax] 17 gram Powder In Packet 17 g PO DAILY PRNQty: 0 0RF enoxaparin [Lovenox] 40 mg/0.4 mL Syringe 40 mg subcut QAM Qty: 0 0RF Continued metformin 500 mg tablet 500 mg PO BID Qty: 180 3RF (DME) OneTouch Verio test strips Strip See Rx Instructions .ROUTE .COMPLEX Qty: 100 3RF Dose Instruction: use to check blood sugar once a day Rx Instructions: use to check blood sugar once a day lisinopril-hydrochlorothiazide 20-12.5 mg tablet 1 tab PO DAILY Qty: 90 3RF citalopram 20 mg tablet 20 mg PO DAILY Qty: 90 3RF zinc acetate 25 mg (zinc) Capsule 25 mg PO DAILY cyanocobalamin (vitamin B-12) [Vitamin B-12] 1,000 mcg Tablet 1,000 mcg PO DAILY calcium carbonate [Calcium 500] 500 mg calcium (1,250 mg) Tablet 500 mg PO DAILY magnesium 200 mg Tablet 200 mg PO DAILY cholecalciferol (vitamin D3) [Vitamin D3] 25 mcg (1,000 unit) Tablet 25 mcg PO DAILY Discharge Orders: Discharge Order (Routine); Ordered 08/01/24 Ordered By: Rachel Ibarra Admission Data Admit Date/Time: 07/28/24 15:46 Attending Provider: Rachel Ibarra Admit Provider: Rachel Ibarra Primary Care Provider: Facundo Cordova III Other Providers: Rachel Ibarra; [facility] Hospital Stay Data Consultations 07/28/24 14:37 ED Decision to Admit Stat Procedures Performed Operation Date: 07/28/24 08:50 Actual Procedures p Right Hip Open Reduction and Cephalomedullary Nailing, physician directed fluoroscopy greater than one hour(Right) - Hernan Proctor, DO Diagnostic Imagining Performed 07/28/24 FL hip RT 2-3V Routine Pending Results Patient Have Any Pending Studies at Discharge: No Discharge Instructions Given to Patient (Per Discharging Provider) R hip fracture R shoulder pain - xray shoulder and humerus negative Had orthostatic hypotension postop, resolved after V saline bolus Postoperative anemia - qod ferrous sulfate, follow CBC periodically for resolution Total Time Total Time Spent Total Time Spent (In Minutes): I personally spent: 45 minutes today on clinical care activities including: reviewing chart notes and vital signs reviewing labs discussion with pharmacist critical care examining and counseling the patient writing prescriptions, discharge instructions documentation Coding Level of Care Code 22404 INP/OBS DISCH >30 MIN Diagnoses Fracture of right hip S72.001A Encounter type: initial encounter Fracture type: closed Hypertension I10 Type 2 diabetes mellitus E11.9 Diabetes mellitus complication status: without complication Diabetes mellitus long wall mining machine tender insulin use: without long wall mining machine tender use
--- NOTE | 2024-08-02 08:23 | Orthopedic Progress Note ---
Date of Service July 30, 2024 Assessment & Plan (1) Intertrochanteric fracture of right hip: (2) Vitamin D deficiency: (3) Osteopenia: (4) Anxiety and depression: (5) GERD (gastroesophageal reflux disease): (6) Hyperlipemia: (7) Type 2 diabetes mellitus: Plan patient doing well postoperative day #2 status post closed reduction and cephalomedullary nailing of the right hip. Patient is 10 to 20 kg weightbearing right lower extremity. She should work with PT/OT to determine appropriate discharge plan Okay for DVT prophylaxis from orthopedic standpoint Continue multimodal pain control Out of bed to chair 3 times daily with all meals. She will follow-up with me in 2 weeks for incision check. Admission and Anticipated Discharge Date Admission Date: July 28, 2024 Subjective patient doing well has been up into her chair. hopeful for discharge this weekend. Review of Systems Review of Systems: All systems reviewed & are unremarkable except as noted in HPI & below Physical Exam Physical Exam: dressings c/d/i. EHL,FHL,GSC,TA motor intact. (7) Type 2 diabetes mellitus Diabetes mellitus complication status: without complication Diabetes mellitus usp insulin use: without terminal operator use Qualified Code(s): E11.9 - Type 2 diabetes mellitus without complications
== END 2024-08-01 12:33 | DRG 481 ==
LOC: ED 11:17 → OR 16:44 → 3N 16:45 → OR 16:48